=== PATIENT | female | born 1935 | race Caucasian/White ===

== ENCOUNTER 2016-05-14 13:00 | Emergency (ER) | payer OTHER ==
[~2016-05-14 13:00] MED LIST: ALPR0.25 PO; ASPI81TA21 PO; BELL1TAB PO; CALCTAB5 PO; CLOP1TAB54 PO; CRDCD/180 PO; DEXT30TA7 PO; ESCI1TAB10 PO; FLUO0.0543 TOP; FLUT0.15 NAE; FRS/40 PO; GLC/500 PO; INSHI7030 SC; IPRA1AER2 INH; ISOS60TA2 PO; LEVO125T72 PO; MULT-506 PO; NITR0.4S2 UT; OXGN; OXYC-106 PO; OXYC30TA35 PO; POTA-74 PO; SENN-61 PO; XNX25 PO; ZNT/150 PO
[2016-05-14 13:06] VITALS: TEMP 37.1
[2016-05-14 13:41] VITALS: O2SAT 96
--- NOTE | 2016-05-14 13:42 | DIAGNOSTIC IMAGING REPORT ---
RIGHT ANKLE MIN 3 VIEWS ROUTINE CLINICAL HISTORY: Right ankle pain. COMPARISON: None. DISCUSSION: The bones are osteopenic. No acute fractures are visualized. There are calcifications in the region of the plantar fascia, as well as in the region of the distal Achilles. IMPRESSION: Osteopenia. No fractures or dislocations identified. Electronically signed by: Sahil Gaspar M.D. 05/14/2016 1:41 PM Dictated Date/Time: 05/14/2016 1:40 PM
--- NOTE | 2016-05-14 13:43 | DIAGNOSTIC IMAGING REPORT ---
CHEST ONE VIEW PORTABLE CLINICAL HISTORY: Weakness COMPARISON STUDY: December 19, 2015 FINDINGS: There are postsurgical changes of a midline sternotomy. The heart is mildly enlarged. There is no failure. There is no focal pulmonary consolidation. There are no significant pleural effusions. There is an old proximal left humeral fracture. Degenerative changes are present within the left shoulder.[ IMPRESSION: No active disease in the chest. Electronically signed by: Sahil Gaspar M.D. 05/14/2016 1:42 PM Dictated Date/Time: 05/14/2016 1:41 PM
--- NOTE | 2016-05-14 14:19 | DIAGNOSTIC IMAGING REPORT ---
CT HEAD WITHOUT CONTRAST (CT) CLINICAL HISTORY: Weakness COMPARISON STUDY: 06/24/2014 TECHNIQUE: Axial CT of the brain is performed from the vertex to the skull base. IV contrast was not administered for this examination. CT DOSE: 537.48 mGy.cm FINDINGS: No intra or extra-axial mass lesions are visualized. There is no CT evidence of acute cortical infarction. There is no evidence of midline shift. There is no acute hemorrhage. No calvarial fractures are visualized. There are minor white matter hypodensities likely on a small vessel basis. There is no evidence of pathologic ventricular dilatation. There is no evidence of acute sinusitis IMPRESSION: No acute intracranial findings Electronically signed by: Sahil Gaspar M.D. 05/14/2016 2:18 PM Dictated Date/Time: 05/14/2016 2:17 PM
[2016-05-14 14:58] LABS: COMPLETE YES; EOS % 0.5 %; HEMATOCRIT 35.7 % (37-47); IG% 0.2 %; LYMPH % 19.7 %; LYMPH ABS # 1.68 K/uL (1.2-3.4); MEAN CORPUSCULAR HEMOGLOBIN 31.5 pg (25-34); MEAN CORPUSCULAR HGB CONC 32.8 g/dl (32-36); MEAN PLATELET VOLUME 10.3 fL (7.4-10.4); MONO % 6.2 %; NEUT % 73.4 %; PLATELET COUNT 206 K/uL (130-400); RED BLOOD COUNT 3.72 M/uL (4.2-5.4); WHITE BLOOD COUNT 8.53 K/uL (4.8-10.8)
[2016-05-14 15:07] LABS: ALT/SGPT 15 U/L (12-78); AST/SGOT 9 U/L (15-37); BLOOD UREA NITROGEN 24 mg/dl (7-18); BUN/CREATININE RATIO 25.7 (10-20); CALCIUM 9.3 mg/dl (8.5-10.1); CARBON DIOXIDE 27 mmol/L (21-32); CHLORIDE 101 mmol/L (98-107); CREATININE 0.94 mg/dl (0.60-1.20); GLUCOSE 325 mg/dl (70-99); POTASSIUM 4.3 mmol/L (3.5-5.1); SODIUM 138 mmol/L (136-145)
[2016-05-14] MEDS ORDERED: FURO-85 PO (15:08)
[2016-05-14] MEDS ORDERED: OXYC40TA34 PO (15:08)
[2016-05-14] MEDS ORDERED: ISOS60TA25 PO (15:08)
[2016-05-14] MEDS ORDERED: LDXO60 TP (15:08)
[2016-05-14] MEDS ORDERED: BELL1TAB PO (15:08)
[2016-05-14] MEDS ORDERED: NVLGI7030 SC (15:08)
[2016-05-14] MEDS ORDERED: SENN-65 PO (15:08)
[2016-05-14] MEDS ORDERED: INSU70IN2 SC (15:08)
[2016-05-14] MEDS ORDERED: DOCU-94 PO (15:08)
[2016-05-14] MEDS ORDERED: CALC-393 PO (15:08)
[2016-05-14] MEDS ORDERED: VENL37.593 PO (15:08)
[2016-05-14] MEDS ORDERED: NTRGSL/4 UT (15:08)
[2016-05-14] MEDS ORDERED: NovoLIN-R INSULIN PER UNIT CHARGE SC STA (15:09)
[2016-05-14 15:11] LABS: ALKALINE PHOSPHATASE 70 U/L (45-117)
--- NOTE | 2016-05-14 15:12 | DIAGNOSTIC IMAGING REPORT ---
RIGHT FOOT MIN 3 VIEWS ROUTINE CLINICAL HISTORY: Right foot pain. COMPARISON: None DISCUSSION: The bones are osteopenic. There are moderately advanced osteoarthritic changes at the level the first metatarsal phalangeal joint. There are soft tissue calcifications in the region of the distal Achilles and plantar fascia. There is an intra-articular fracture involving the base the first metatarsal. IMPRESSION: Osteopenia. Intra-articular fracture involving the base the first metatarsal. Electronically signed by: Sahil Gaspar M.D. 05/14/2016 3:11 PM Dictated Date/Time: 05/14/2016 3:08 PM
[2016-05-14 15:19] LABS: BETA-HYDROXYBUTYRATE 13.48 mg/dL (0.2-2.81)
--- NOTE | 2016-05-14 15:45 | EMERGENCY ROOM VISIT NOTE ---
History Report prepared by Baileyibfrederic: Mark Cary Under the Supervision of: Dr. Edward Clark D.O. First contact with patient: 13:04 Chief Complaint: ANKLE PAIN Stated Complaint: ankle pain History of Present Illness The patient is an 80 year old female who presents to the Emergency Room with complaints of an acute fall that occurred last night. The patient was getting ready for bed last night when the fall occurred. She was not using her walker at the time of the fall, and she had a glass of water in her hand. The patient believes that she hit the back of her head when she fell. She denies loss of consciousness or head pain. Her cannot remember what happened to her either. The patient states that her helped her get up after the fall. The patient now complains of right ankle pain. She fractured the left ankle last year after a fall. The patient is on Coumadin. The patient lives with her , who called an ambulance for her today because she was complaining of ankle pain. Patient has no other complaints and is able to state that she did not pass out. Patient denies headache, change in vision, fevers, back pain, chest pain, shortness of breath, nausea, vomiting, diarrhea, pain with urination , and melena. Source of History: patient Onset: last night Position: other (global) Quality: other (fall) Timing: other (acute) Associated Symptoms: No LOC, No SOB, No back pain, No chest pain, No diarrhea, No fevers, No headache, No melena, No nausea, No urinary symptoms, No vomiting Review of Systems See HPI for pertinent positives & negatives. A total of 10 systems reviewed and were otherwise negative. Past Medical & Surgical Medical Problems: (1) Asthma (2) Closed fracture of humerus (3) Coronary artery disease (4) Diabetes mellitus type 2 (5) Diabetic neuropathy (6) Diverticular disease of colon (7) Dizziness (8) Hypertension (9) Hypothyroidism (10) Osteoporosis Surgical Problems: (1) s p appendectomy (2) s p CABG (3) s p cataract surgery (4) s p colonoscopy (5) s p hysterectomy (6) s p PCI MONICA (7) s p PCI LM LCX MONICA (8) s p PCI PDA SVG MONICA Family History Patient reports no known family medical history. Social History Smoking Status: Never Smoker Alcohol Use: none Marital Status: Housing Status: lives with family Occupation Status: unemployed Current/Historical Medications Scheduled Alprazolam (Xanax), 0.25 MG PO UD Alprazolam (Alprazolam), 0.5 MG PO HS Aspirin Enteric Coated (Ecotrin Or Generic), 81 MG PO QPM Calcium Carbonate (Calcium), 600 MG PO BID Clopidogrel Bisulfate (Plavix), 75 MG PO DAILY Diltiazem Hcl Coated Beads (Cardizem Cd), 180 MG PO QAM Escitalopram Oxalate (Lexapro), 20 MG PO DAILY Fluocinonide (Lidex 0.05% Oint), 1 APPLN TP BID Fluticasone Propionate (Nasal) (Flonase Allergy Relief), 2 SPRAYS HENRY DAILY Furosemide (Lasix), 10 MG PO BID Insulin Human Isophan/Regular (Humulin 70/30), 20 UNITS SC QAM Insulin Isophan/Regular (Novolin 70/30), 10 UNITS SC QPM Ipratropium-Albuterol (Combivent Respimat), 1 PUFFS INH QID Isosorbide Mononitrate (Imdur Ext Rel), 120 MG PO QAM Isosorbide Mononitrate Ext Rel (Imdur Ext Rel), 30 MG PO UD Levothyroxine Sodium (Synthroid), 125 MCG PO DAILY Metformin Hcl (Glucophage), 1,000 MG PO QAM Metformin Hcl (Glucophage), 750 MG PO QPM Nitroglycerin (Nitrostat), 0.4 MG UT PRN Oxycodone Hcl (Oxycontin), 40 MG PO TID Oxycodone/Acetaminophen 10MG/325MG (Percocet 10MG/325MG), 1 TAB PO Q6 Oxygen (Oxygen), 3 LITER NA CONTINOUS Potassium Chloride (Potassium Chloride Er), 20 MEQ PO QAM Potassium Chloride (Potassium Chloride Er), 10 MEQ PO QPM Ranitidine Hcl (Zantac), 150 MG PO BID Senna/Docusate Sod (Senokot S), 1 TAB PO DAILY Venlafaxine Hcl (Venlafaxine Extended Rel), 37.5 MG PO DAILY Scheduled PRN Belladonna Alk/Phenobarbital (), 1 TAB PO TID PRN for GI Upset Belladonna Alk/Phenobarbital (), 1 TAB PO TID PRN for MD ORDER Dextromethorphan-Guaifenesin (Mucinex Dm), 1 TAB PO BID PRN for CONGESTION Docusate Sodium (Colace), 1 CAP PO BID PRN for Constipation Insulin Aspart 70/30 (Novolog Mix 70/30), 0 SC UD PRN for HYPERGLYCEMIA Allergies Coded Allergies: Cefdinir (Verified Allergy, Unknown, EDDEMA FACE,LIPS,TONGUE, 05/14/16) Meperidine (Verified Allergy, Unknown, UNKNOWN, 10/01/14) Pioglitazone (Verified Allergy, Unknown, EDEMA, 05/14/16) Rosiglitazone (Verified Allergy, Unknown, EDEMA, 05/14/16) Sodium Benzoate (Verified Allergy, Unknown, EDDEMA FACE,LIPS,TONGUE, ) Beta Adrenergic Blockers (Verified Adverse Reaction, Unknown, UNKNOWN, ) Lorazepam (Verified Adverse Reaction, Unknown, UNKNOWN, 10/01/14) Physical Exam Vital Signs Date Time Temp Pulse Resp B/P Pulse Ox O2 Delivery O2 Flow Rate FiO2 05/14/16 14:26 78 18 117/78 97 05/14/16 13:41 96 Nasal Cannula 2.0 05/14/16 13:40 90 Room Air 05/14/16 13:40 77 130/68 76 124/69 05/14/16 13:39 76 05/14/16 13:06 37.1 78 20 147/81 94 Room Air Physical Exam GENERAL: Sitting up in bed, alert, well appearing, well nourished, no distress, non-toxic HEAD: normal cephalic, atraumatic EYE EXAM: normal conjunctiva, PERRL and EOM's grossly intact OROPHARYNX: no exudate, no erythema, lips, buccal mucosa, and tongue normal and mucous membranes are moist EARS: TMs clear b/l NECK: supple, no nuchal rigidity, no adenopathy, non-tender CHEST: stable to compression anteriorly and posteriorly LUNGS: clear to auscultation. Normal chest wall mechanics HEART: Systolic ejection murmur, S1 normal and S2 normal ABDOMEN: abdomen soft, non-tender, normo-active bowel sounds, no masses, no rebound or guarding. PELVIS: stable to compression anteriorly and posteriorly BACK: Back is symmetrical on inspection and there is no deformity, no midline tenderness, no CVA tenderness. UPPER EXTREMITIES: full active and passive range of motion of all joints without tenderness to palpation LOWER EXTREMITIES: Right ankle with mild bruising at base of MTPs, minimal tenderness. NEURO EXAM: Awake, oriented to person place and time. Medical Decision & Procedures ER Provider Diagnostic Interpretation: Xray results per the radiologist and my interpretation. Other results have been interpreted by the radiologist and reviewed by me. RIGHT ANKLE MIN 3 VIEWS ROUTINE CLINICAL HISTORY: Right ankle pain. COMPARISON: None. DISCUSSION: The bones are osteopenic. No acute fractures are visualized. There are calcifications in the region of the plantar fascia, as well as in the region of the distal Achilles. IMPRESSION: Osteopenia. No fractures or dislocations identified. Electronically signed by: Sahil Gaspar M.D. 05/14/2016 1:41 PM Dictated Date/Time: 05/14/2016 1:40 PM CHEST ONE VIEW PORTABLE CLINICAL HISTORY: Weakness COMPARISON STUDY: December 19, 2015 FINDINGS: There are postsurgical changes of a midline sternotomy. The heart is mildly enlarged. There is no failure. There is no focal pulmonary consolidation. There are no significant pleural effusions. There is an old proximal left humeral fracture. Degenerative changes are present within the left shoulder.[ IMPRESSION: No active disease in the chest. Electronically signed by: Sahil Gaspar M.D. 05/14/2016 1:42 PM Dictated Date/Time: 05/14/2016 1:[address] HEAD WITHOUT CONTRAST (CT) CLINICAL HISTORY: Weakness COMPARISON STUDY: 06/24/2014 TECHNIQUE: Axial CT of the brain is performed from the vertex to the skull base. IV contrast was not administered for this examination. CT DOSE: 537.48 mGy.cm FINDINGS: No intra or extra-axial mass lesions are visualized. There is no CT evidence of acute cortical infarction. There is no evidence of midline shift. There is no acute hemorrhage. No calvarial fractures are visualized. There are minor white matter hypodensities likely on a small vessel basis. There is no evidence of pathologic ventricular dilatation. There is no evidence of acute sinusitis IMPRESSION: No acute intracranial findings Electronically signed by: Sahil Gaspar M.D. 05/14/2016 2:18 PM Dictated Date/Time: 05/14/2016 2:17 PM Laboratory Results 05/14/16 13:45 Red Blood Count 3.72, Mean Corpuscular Volume 96.0, Mean Corpuscular Hemoglobin 31.5, Mean Corpuscular Hemoglobin Concent 32.8, Mean Platelet Volume 10.3, Neutrophils (%) (Auto) 73.4, Lymphocytes (%) (Auto) 19.7, Monocytes (%) (Auto) 6.2, Eosinophils (%) (Auto) 0.5, Basophils (%) (Auto) 0.0, Neutrophils # (Auto) 6.26, Lymphocytes # (Auto) 1.68, Monocytes # (Auto) 0.53, Eosinophils # (Auto) 0.04, Basophils # (Auto) 0.00 05/14/16 13:45 Test 05/14/16 13:45 05/14/16 14:53 White Blood Count 8.53 K/uL (4.8-10.8) Red Blood Count 3.72 M/uL (4.2-5.4) Hemoglobin 11.7 g/dL (12.0-16.0) Hematocrit 35.7 % (37-47) Mean Corpuscular Volume 96.0 fL (80-100) Mean Corpuscular Hemoglobin 31.5 pg (25-34) Mean Corpuscular Hemoglobin Concent 32.8 g/dl (32-36) Platelet Count 206 K/uL (130-400) Mean Platelet Volume 10.3 fL (7.4-10.4) Neutrophils (%) (Auto) 73.4 % Lymphocytes (%) (Auto) 19.7 % Monocytes (%) (Auto) 6.2 % Eosinophils (%) (Auto) 0.5 % Basophils (%) (Auto) 0.0 % Neutrophils # (Auto) 6.26 K/uL (1.4-6.5) Lymphocytes # (Auto) 1.68 K/uL (1.2-3.4) Monocytes # (Auto) 0.53 K/uL (0.11-0.59) Eosinophils # (Auto) 0.04 K/uL (0-0.5) Basophils # (Auto) 0.00 K/uL (0-0.2) RDW Standard Deviation 47.4 fL (36.4-46.3) RDW Coefficient of Variation 13.6 % (11.5-14.5) Immature Granulocyte % (Auto) 0.2 % Immature Granulocyte # (Auto) 0.02 K/uL (0.00-0.02) Anion Gap 10.0 mmol/L (3-11) Estimated GFR () 65.5 Estimated GFR (Non- 56.5 BUN/Creatinine Ratio 25.7 (10-20) Calcium Level 9.3 mg/dl (8.5-10.1) Total Bilirubin 0.4 mg/dl (0.2-1) Direct Bilirubin < 0.1 mg/dl (0-0.2) Aspartate Amino Transf (AST/SGOT) 9 U/L (15-37) Alanine Aminotransferase (ALT/SGPT) 15 U/L (12-78) Alkaline Phosphatase 70 U/L (45-117) Troponin I < 0.015 ng/ml (0-0.045) Total Protein 6.9 gm/dl (6.4-8.2) Albumin 3.5 gm/dl (3.4-5.0) Beta-Hydroxybutyric Acid 13.48 mg/dL (0.2-2.81) Bedside Glucose 294 mg/dl (70-90) Laboratory results per my review. Medications Administered Medications (Trade) Dose Ordered Sig/Emanuel Route Start Time Stop Time Status Last Admin Dose Admin Insulin Human Regular (novoLIN-R U-100 PER UNIT) 3 units NOW STAT SC 05/14/16 15:09 05/14/16 15:10 DC 05/14/16 15:21 3 UNITS ECG Indication: other (fall) Rate (beats per minute): 79 Rhythm: sinus rhythm Findings: PVC, Q waves (Septal), other (normal axis) Change: no significant change (2015) ED Course ED COURSE: Vital signs were reviewed and were normal. The patients medical record was reviewed The above diagnostic studies were performed and reviewed. ED treatments and interventions as stated above. 1308: The patient was evaluated in room C7. A complete history and physical examination was performed. 1530: Updated the patient and her family. 1540: Upon reevaluation, the patient is stable. I discussed my findings with the patient and she understands and agrees with the treatment plan. Based on the patients age, coexisting illnesses, exam and lab findings the decision to treat as an outpatient was made. The patient remained stable while under my care. The patient appeared well at the time of discharge. Medical Decision Differential diagnoses include major intracranial, cervical, spinal, thoracic, abdominal, pelvic and neurologic injury. Fracture, contusion, sprain, strain, laceration, abrasions included as well. Patient is an 80-year-old female who presents the ER status post what appears to be mechanical fall. She is walking into the bedroom and notes that she fell backwards. She does remember falling. I do not believe that there was any loss consciousness. She is on a blood thinners consequently CT of her head was performed. She is no other complaints with the exception of right foot pain. X -ray show fracture of her first metatarsal. I discussed this with Dr. Tin Conteh who agrees with walking boot and following up as an outpatient. With her elevated blood sugar she was given a dose of insulin. She is instructed not to take her glyburide tonight. She will use her walker and follow-up with orthopedics within the week. EKG was unremarkable. Troponin was unremarkable. CBC along with BMP was unremarkable as well. I do not believe that this was a syncopal event based on her history. Vitals remained stable. Friends and family at bedside were updated. Discussed with Pt concerning signs and symptoms to watch out for. Pt was instructed to follow up with their PCP and discussed with the patient their option to return to the ED at anytime for persistent or worsening symptoms. The appropriate anticipatory guidance and out-patient management, including indications for return to the emergency department, were explained at length to the patient and understood. Consults Time Called: 1520 Consulting Physician: Tin Crespo Follow up within a week with ce pinto. Impression Primary Impression: Fracture of first metatarsal bone Additional Impressions: Fall Hyperglycemia Scribe Attestation The scribe's documentation has been prepared under my direction and personally reviewed by me in its entirety. I confirm that the note above accurately reflects all work, treatment, procedures, and medical decision making performed by me. Departure Information Referrals LeeGisella (PCP) Ben Wharton, DO Forms HOME CARE DOCUMENTATION FORM, IMPORTANT VISIT INFORMATION Patient Instructions My [facility] Additional Instructions Please follow up with your primary care doctor with in the next 24 hours. Any worsening of your symptoms, please return to the ED immediately. This includes any worsening pain, passing out, worsening swelling of her foot, fevers greater than 100.4, recurrent falls, or any other concerning signs or symptoms from your standpoint. Do not take your glyburide tonight. Please try not to bear weight on the anterior portion of her foot. It is okay to put weight on her heel. Please continue to usual walker. Follow-up with orthopedics as listed below within the week. Problem Qualifiers Primary Impression: Fracture of first metatarsal bone Encounter type: initial encounter Fracture type: closed Fracture alignment : nondisplaced Laterality: right Qualified Codes: S92.314A - Nondisplaced fracture of first metatarsal bone, right foot, initial encounter for closed fracture Additional Impressions: Fall Encounter type: initial encounter Qualified Codes: W19.XXXA - Unspecified fall, initial encounter
--- NOTE | 2016-05-14 19:07 | EMERGENCY ROOM VISIT NOTE ---
ED Visit Note First contact with patient: 19:20 The patient was seen primarily by Dr. Edward Clark. She was pending discharge but then new information was provided and she was not doing well enough to ambulate safely in her home. Case management with the patient. They discussed the case with her family. It was felt [facility] would be a reasonable option. I did meet with the patient. She was complaining of low back pain. X- ray imaging was not performed earlier. She notes a long history of back pain. She feels this may be from lying on the stretcher since prolonged rest seems to aggravate her back. She was given 1 Percocet as requested. X-ray imaging was performed. Running changes noted. No acute fracture. The patient was reassessed and was doing well. [facility] accepted the patient. Family was in agreement. The patient was transferred for further management.
[2016-05-14] MEDS ORDERED: OXYCODONE/ACETAMINOPHEN 5-325 TAB PO ONE (19:15)
--- NOTE | 2016-05-14 19:40 | DIAGNOSTIC IMAGING REPORT ---
L-SPINE MIN 4 VIEWS ROUTINE CLINICAL HISTORY: Low back pain. Trauma. COMPARISON STUDY: No previous studies for comparison. FINDINGS: There are moderate multilevel degenerative changes. There is a grade 1 spondylolisthesis of L4 on L5. There is a grade 2 spondylolisthesis of L5 on S1. No acute fractures are visualized. IMPRESSION: 1. Degenerative change with spondylolisthesis of L4 on L5 and L5 on S1 2. No acute fractures Electronically signed by: Sahil Gaspar M.D. 05/14/2016 7:39 PM Dictated Date/Time: 05/14/2016 7:38 PM
[2016-05-14 21:19] VITALS: BP 139/59; PULSE 70; O2SAT 96
== END 2016-05-14 21:52 ==
LOC: EDBD 13:00 → C.EDC 13:01
DX: S92.314A Nondisplaced fracture of first metatarsal bone, right foot, initial encounter for closed fracture (principal); W19.XXXA Unspecified fall, initial encounter; J45.909 Unspecified asthma, uncomplicated; I25.10 Atherosclerotic heart disease of native coronary artery without angina pectoris; E11.65 Type 2 diabetes mellitus with hyperglycemia; E08.21 Diabetes mellitus due to underlying condition with diabetic nephropathy; I10 Essential (primary) hypertension; E03.9 Hypothyroidism, unspecified; M81.0 Age-related osteoporosis without current pathological fracture; Z98.49 Cataract extraction status, unspecified eye; Z95.1 Presence of aortocoronary bypass graft; Z90.710 Acquired absence of both cervix and uterus; Z95.5 Presence of coronary angioplasty implant and graft; Z79.01 Long term (current) use of anticoagulants; Z79.4 Long term (current) use of insulin; Z79.02 Long term (current) use of antithrombotics/antiplatelets

== ENCOUNTER → 2016-10-04 | Outpatient (CLI) | payer OTHER ==
[~2016-10-04] MED LIST changes: -BELL1TAB PO; +CALC-354 PO; +CALC-393 PO; -CALCTAB5 PO; +DOCU-94 PO; -FLUO0.0543 TOP; -FRS/40 PO; +FURO-85 PO; +INSU70IN2 SC; +ISOS60TA25 PO; +LDXO60 TP; -MULT-506 PO; -NITR0.4S2 UT; +NTRGSL/4 UT; +NVLGI7030 SC; +NYST100010 TOP; -OXYC30TA35 PO; +OXYC40TA34 PO; +PHEN-778 PO; +SENN-65 PO; +VENL37.593 PO
[2016-10-04 14:06] LABS: ESTIMATED AVERAGE GLUCOSE 200 mg/dl; HA1C FLAG Normal (Normal)
== END | disposition home or self-care (01) ==
LOC: C.LABOAKS 15:22
PROVIDERS: ATTEND Internal Medicine
DX: E11.9 Type 2 diabetes mellitus without complications (principal)

== ENCOUNTER 2016-10-26 15:33 | Emergency (ER) | payer OTHER ==
[~2016-10-26] VITALS: Ht 165.1 cm; Wt 92.3 kg
[~2016-10-26 15:33] MED LIST changes: +BELL1TAB PO; -CALC-354 PO; -NYST100010 TOP; -PHEN-778 PO; -SENN-61 PO
[2016-10-26 15:41] VITALS: TEMP 37; Ht 165.1 cm; Wt 92.3 kg
[2016-10-26 16:15] LABS: URINE APPEARANCE CLEAR (CLEAR); URINE BILIRUBIN NEG (NEG); URINE COLOR YELLOW; URINE NITRITE NEG (NEG); URINE SPECIFIC GRAVITY 1.017 (1.000-1.030); UROBILINOGEN NEG (NEG); ZZUR CULT IF INDIC CLEAN CATCH NO
[2016-10-26 16:19] LABS: MANUAL MICROSCOPIC REQUIRED? NO; REVIEW REQ? NO
[2016-10-26] MEDS ORDERED: SENN-61 PO (16:26)
[2016-10-26] MEDS ORDERED: CALC-354 PO (16:26)
[2016-10-26] MEDS ORDERED: NYST100010 TOP (16:26)
[2016-10-26] MEDS ORDERED: ONDANSETRON INJ 2 MG/ML 2 ML VIAL IV STA ×2 (16:49→19:23)
[2016-10-26] MEDS ORDERED: SODIUM CHLORIDE 0.9% 1000ML 1,000 ML IV STA (16:49)
[2016-10-26 17:02] LABS: BASO % 0.1 %; BASO ABS # 0.01 K/uL (0-0.2); COMPLETE YES; EOS % 0.6 %; HEMATOCRIT 35.6 % (37-47); IG% 0.2 %; LYMPH % 23.9 %; LYMPH ABS # 1.97 K/uL (1.2-3.4); MEAN CELL VOLUME 97.3 fL (80-100); MEAN CORPUSCULAR HEMOGLOBIN 31.1 pg (25-34); MEAN PLATELET VOLUME 9.8 fL (7.4-10.4); MONO % 5.1 %; NEUT % 70.1 %; PLATELET COUNT 219 K/uL (130-400); RED BLOOD COUNT 3.66 M/uL (4.2-5.4); WHITE BLOOD COUNT 8.24 K/uL (4.8-10.8)
[2016-10-26 17:21] LABS: BUN/CREATININE RATIO 20.5 (10-20); CALCIUM 9.3 mg/dl (8.5-10.1); CREATININE 0.87 mg/dl (0.60-1.20); POTASSIUM 3.8 mmol/L (3.5-5.1)
[2016-10-26 17:24] LABS: ALB/GLOB RATIO 0.9 (0.9-2)
[2016-10-26] MEDS ORDERED: OPTIRAY 320 IV PRN (17:45)
--- NOTE | 2016-10-26 18:35 | DIAGNOSTIC IMAGING REPORT ---
CT OF THE ABDOMEN AND PELVIS WITH CONTRAST CLINICAL HISTORY: Lower abdominal pain. Syncope. COMPARISON STUDY: CT of the abdomen and pelvis October 02, 2014. TECHNIQUE: Following IV administration of 94 mL of Optiray-320, axial images of the abdomen and pelvis were obtained from the lung bases to the proximal femurs. Images were reviewed in the axial, sagittal, and coronal planes. IV contrast was administered without complication. CT DOSE: 987.27 mGy.cm FINDINGS: No pneumatosis, free air or portal venous gas is present. The liver, spleen and pancreas are unremarkable. A 1.8 cm right adrenal gland nodule is unchanged since CT of October 02, 2014. This is benign given stability. Left adrenal nodularity is similar to prior exam. There is no hydronephrosis. There is no peripancreatic or pericholecystic infiltration. There is left colon diverticulosis without evidence for acute diverticulitis. There is no evidence for a bowel obstruction. The appendix is not identified but there is no right lower quadrant infiltration. There is a fat-containing umbilical hernia. Laxity of the anterior abdominal wall is noted. There is extensive atherosclerotic plaque of the abdominal aorta. There is no aneurysmal dilatation. The uterus is surgically absent. A mixed solid and cystic right adnexal mass is again noted. The cystic component measures 5.6 x 3.9 cm. The solid component measures 3.4 cm. This is similar to exam of October 02, 2014. This lesion remains indeterminate. No suspicious skeletal lesions are present. There are multilevel degenerative changes within the lumbar spine. IMPRESSION: 1. No acute process within the abdomen or pelvis. 2. Colonic diverticulosis without evidence for acute diverticulitis. 3. 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 This is unchanged since CT of October 02, 2014 but remains pathologically indeterminate. Gynecologic consultation is recommended. Electronically signed by: Emmanuel Luz M.D. 10/26/2016 6:34 PM Dictated Date/Time: 10/26/2016 6:19 PM
[2016-10-26] MEDS ORDERED: MoRPHine SULFATE 4 MG/ML 1 ML CARP\\VIAL IV STA (19:23)
[2016-10-26] MEDS ORDERED: OXYCODONE HCL IR 5 MG TAB (IMMEDIATE RELEASE) PO STA (19:42)
[2016-10-26] MEDS ORDERED: ALPRAZOLAM 0.5 MG TAB PO STA (20:11)
--- NOTE | 2016-10-26 20:21 | DIAGNOSTIC IMAGING REPORT ---
CHEST ONE VIEW PORTABLE CLINICAL HISTORY: Abdominal pain and syncope. COMPARISON STUDY: Chest radiograph May 14, 2016. FINDINGS: Patient is rotated. There is no pneumothorax or pleural effusion. Mild cardiomegaly is unchanged. There are median sternotomy wires. There is no evidence of pulmonary edema. Mediastinal surgical clips are noted. Patient is rotated. IMPRESSION: No acute cardiopulmonary findings. No change in appearance of the chest. Electronically signed by: Emmanuel Luz M.D. 10/26/2016 8:20 PM Dictated Date/Time: 10/26/2016 8:19 PM
[2016-10-26 21:01] VITALS: BP 140/41
[2016-10-26 21:08] VITALS: PULSE 68
[2016-10-26 21:17] VITALS: O2SAT 93
--- NOTE | 2016-10-26 22:56 | EMERGENCY ROOM VISIT NOTE ---
History Report prepared by Mally: Franchesca Conklin Under the Supervision of: Dr. Edward Clark D.O. First contact with patient: 16:34 Chief Complaint: ABDOMINAL PAIN Stated Complaint: AB PAIN, SYNCOPE Nursing Triage Summary: Pt having bilateral flank pain at this time. Pt states she just feels "bloated. " She states having a large BM yesterday and a "normal" BM this AM. [facility] staff reported the patient possibly having a syncopal episiode earlier today. History of Present Illness The patient is an 81 year old female who presents to the Emergency Room with complaints of intermittent abdominal pain that began several weeks ago. She currently rates her discomfort as a 6/10 in severity. The patient states that over the past several weeks she has been experiencing diffuse abdominal pain and bloating. She states that today she felt nauseous. The patient states that she is typically constipated due to her pain medications, and denies taking any new medications. She reports that she had a normal bowel movement yesterday and notes that she had one today. The patient states that she has a history of a partial hysterectomy and appendectomy. She states that over the past four years she has intermittently experienced chest pain that she treats with nitroglycerin. The patient states that she has a history of bypass surgery four years ago. She denies any chest pain today or taking nitroglycerin today. Per records, the patient had a three minute loss of consciousness prior to ALS arrival. Records report that the patient is on two liters of supplemental nasal cannula oxygen and is on Plavix. Pt denies headache, change in vision, fevers, chest pain, shortness of breath, vomiting, diarrhea, pain with urination, and melena. Source of History: patient, other (records) Onset: several weeks ago Position: abdomen Symptom Intensity: 6/10 Timing: intermittent Associated Symptoms: + LOC, + nausea Note: Associated Symptoms: abdominal bloating, constipation Review of Systems See HPI for pertinent positives & negatives. A total of 10 systems reviewed and were otherwise negative. Past Medical & Surgical Medical Problems: (1) Asthma (2) Closed fracture of humerus (3) Coronary artery disease (4) Diabetes mellitus type 2 (5) Diabetic neuropathy (6) Diverticular disease of colon (7) Dizziness (8) Hypertension (9) Hypothyroidism (10) Osteoporosis Surgical Problems: (1) s p appendectomy (2) s p CABG (3) s p cataract surgery (4) s p colonoscopy (5) s p hysterectomy (6) s p PCI MONICA (7) s p PCI LM LCX MONICA (8) s p PCI PDA SVG MONICA Family History Patient reports no known family medical history. Social History Smoking Status: Never Smoker Alcohol Use: none Marital Status: Housing Status: lives with family Occupation Status: unemployed Current/Historical Medications Scheduled Alprazolam (Xanax), 0.25 MG PO BID Aspirin Enteric Coated (Ecotrin Or Generic), 81 MG PO QPM Calcium Carbonate-Cholecalcife (Caltrate 600+D), 1 TAB PO BID Clopidogrel Bisulfate (Plavix), 75 MG PO DAILY Diltiazem Hcl Coated Beads (Cardizem Cd), 180 MG PO QAM Docusate Sodium (Colace), 100 MG PO BID Escitalopram Oxalate (Lexapro), 20 MG PO DAILY Fluocinonide (Lidex 0.05% Oint), 1 APPLN TP BID Fluticasone Propionate (Nasal) (Flonase Allergy Relief), 2 SPRAYS HENRY DAILY Furosemide (Lasix), 10 MG PO BID Home O2 Therapy (Oxygen), 3 LITER NA CONTINOUS Insulin Human Isophan/Regular (Humulin 70/30), 20 UNITS SC QAM Insulin Isophan/Regular (Novolin 70/30), 10 UNITS SC QPM Ipratropium-Albuterol (Combivent Respimat), 1 PUFFS INH QID Isosorbide Mononitrate (Imdur Ext Rel), 120 MG PO QAM Levothyroxine Sodium (Synthroid), 125 MCG PO DAILY Metformin Hcl (Glucophage), 1,000 MG PO BID Nitroglycerin (Nitrostat), 0.4 MG UT PRN Nystatin (Topical) (Nystop), 100,000 UNITS TOP TID Oxycodone Hcl (Oxycontin), 40 MG PO TID Oxycodone/Acetaminophen 10MG/325MG (Percocet 10MG/325MG), 1 TAB PO TID Potassium Chloride (Potassium Chloride Er), 20 MEQ PO QPM Ranitidine Hcl (Zantac), 150 MG PO BID Senna (Senokot), 1 TAB PO BID Venlafaxine Hcl (Venlafaxine Extended Rel), 37.5 MG PO DAILY Scheduled PRN Belladonna Alk/Phenobarbital (), 1 TAB PO TID PRN for MD ORDER Dextromethorphan-Guaifenesin (Mucinex Dm), 1 TAB PO BID PRN for CONGESTION Allergies Coded Allergies: Cefdinir (Verified Allergy, Unknown, EDDEMA FACE,LIPS,TONGUE, 10/26/16) Meperidine (Verified Allergy, Unknown, UNKNOWN, 10/26/16) Pioglitazone (Verified Allergy, Unknown, EDEMA, 10/26/16) Rosiglitazone (Verified Allergy, Unknown, EDEMA, 10/26/16) Sodium Benzoate (Verified Allergy, Unknown, EDDEMA FACE,LIPS,TONGUE, ) Beta Adrenergic Blockers (Verified Adverse Reaction, Unknown, UNKNOWN, 04/02) Lorazepam (Verified Adverse Reaction, Unknown, UNKNOWN, 10/26/16) Physical Exam Vital Signs Date Time Temp Pulse Resp B/P (MAP) Pulse Ox O2 Delivery O2 Flow Rate FiO2 10/26/16 21:17 93 10/26/16 21:08 68 23 10/26/16 21:01 140/41 10/26/16 20:53 70 18 92 10/26/16 20:38 70 14 93 10/26/16 20:32 164/80 10/26/16 20:23 70 20 94 10/26/16 20:18 72 23 95 10/26/16 20:03 75 25 97 10/26/16 20:02 145/78 10/26/16 19:55 175/63 10/26/16 19:48 73 18 92 10/26/16 19:33 74 14 94 10/26/16 19:18 74 19 97 10/26/16 19:03 74 19 95 10/26/16 18:48 78 15 97 10/26/16 18:44 82 18 181/75 96 Room Air 10/26/16 18:40 181/75 10/26/16 18:33 74 13 94 10/26/16 18:18 72 14 96 10/26/16 17:33 73 22 90 10/26/16 17:18 75 19 92 10/26/16 17:17 76 18 172/75 94 Room Air 10/26/16 17:16 172/75 10/26/16 17:03 71 17 92 7/12/17 16:48 71 10/26/16 16:48 72 24 10/26/16 15:41 37.0 76 18 187/ 93 Room Air 10/26/16 15:38 187/ Physical Exam GENERAL: Sitting up in bed, disheveled, no acute distress. EYE EXAM: normal conjunctiva, PERRL and EOM's intact OROPHARYNX: no exudate, no erythema, lips, buccal mucosa, and tongue normal and mucous membranes are moist NECK: supple, no nuchal rigidity, no adenopathy, non-tender LUNGS: Clear to auscultation. Normal chest wall mechanics HEART: no murmurs, S1 normal and S2 normal ABDOMEN: Obese, minimal diffuse tenderness. abdomen soft, normo-active bowel sounds, no masses, no rebound or guarding. BACK: Back is symmetrical on inspection and there is no deformity, no midline tenderness, no CVA tenderness. SKIN: no rashes and no bruising UPPER EXTREMITIES: upper extremities are grossly normal. LOWER EXTREMITIES: No pitting edema. NEURO EXAM: Normal sensorium, cranial nerves II-XII grossly intact, normal speech, no gross weakness of arms, no gross weakness of legs. No drift. Finger to nose intact. Gross sensation intact. Medical Decision & Procedures ER Provider Diagnostic Interpretation: Radiology results as stated below per my review and the radiologist's interpretation: CT OF THE ABDOMEN AND PELVIS WITH CONTRAST CLINICAL HISTORY: Lower abdominal pain. Syncope. COMPARISON STUDY: CT of the abdomen and pelvis October 02, 2014. TECHNIQUE: Following IV administration of 94 mL of Optiray-320, axial images of the abdomen and pelvis were obtained from the lung bases to the proximal femurs. Images were reviewed in the axial, sagittal, and coronal planes. IV contrast was administered without complication. CT DOSE: 987.27 mGy.cm FINDINGS: No pneumatosis, free air or portal venous gas is present. The liver, spleen and pancreas are unremarkable. A 1.8 cm right adrenal gland nodule is unchanged since CT of October 02, 2014. This is benign given stability. Left adrenal nodularity is similar to prior exam. There is no hydronephrosis. There is no peripancreatic or pericholecystic infiltration. There is left colon diverticulosis without evidence for acute diverticulitis. There is no evidence for a bowel obstruction. The appendix is not identified but there is no right lower quadrant infiltration. There is a fat-containing umbilical hernia. Laxity of the anterior abdominal wall is noted. There is extensive atherosclerotic plaque of the abdominal aorta. There is no aneurysmal dilatation. The uterus is surgically absent. A mixed solid and cystic right adnexal mass is again noted. The cystic component measures 5.6 x 3.9 cm. The solid component measures 3.4 cm. This is similar to exam of October 02, 2014. This lesion remains indeterminate. No suspicious skeletal lesions are present. There are multilevel degenerative changes within the lumbar spine. IMPRESSION: 1. No acute process within the abdomen or pelvis. 2. Colonic diverticulosis without evidence for acute diverticulitis. 3. 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 This is unchanged since CT of October 02, 2014 but remains pathologically indeterminate. Gynecologic consultation is recommended. Electronically signed by: Emmanuel Luz M.D. 10/26/2016 6:34 PM Dictated Date/Time: 10/26/2016 6:19 PM CHEST ONE VIEW PORTABLE CLINICAL HISTORY: Abdominal pain and syncope. COMPARISON STUDY: Chest radiograph May 14, 2016. FINDINGS: Patient is rotated. There is no pneumothorax or pleural effusion. Mild cardiomegaly is unchanged. There are median sternotomy wires. There is no evidence of pulmonary edema. Mediastinal surgical clips are noted. Patient is rotated. IMPRESSION: No acute cardiopulmonary findings. No change in appearance of the chest. Electronically signed by: Emmanuel Luz M.D. 10/26/2016 8:20 PM Dictated Date/Time: 10/26/2016 8:19 PM Laboratory Results 10/26/16 16:20 Red Blood Count 3.66, Mean Corpuscular Volume 97.3, Mean Corpuscular Hemoglobin 31.1, Mean Corpuscular Hemoglobin Concent 32.0, Mean Platelet Volume 9.8, Neutrophils (%) (Auto) 70.1, Lymphocytes (%) (Auto) 23.9, Monocytes (%) (Auto) 5.1, Eosinophils (%) (Auto) 0.6, Basophils (%) (Auto) 0.1, Neutrophils # (Auto) 5.77, Lymphocytes # (Auto) 1.97, Monocytes # (Auto) 0.42, Eosinophils # (Auto) 0.05, Basophils # (Auto) 0.01 10/26/16 15:49 Test 10/26/16 15:49 10/26/16 16:00 10/26/16 16:20 10/26/16 19:56 Anion Gap 8.0 mmol/L (3-11) Est Creatinine Clear Calc Drug Dose 55.0 ml/min Estimated GFR () 71.4 Estimated GFR (Non- 61.6 BUN/Creatinine Ratio 20.5 (10-20) Calcium Level 9.3 mg/dl (8.5-10.1) Total Bilirubin 0.3 mg/dl (0.2-1) Aspartate Amino Transf (AST/SGOT) 13 U/L (15-37) Alanine Aminotransferase (ALT/SGPT) 17 U/L (12-78) Alkaline Phosphatase 75 U/L (45-117) Total Protein 6.8 gm/dl (6.4-8.2) Albumin 3.2 gm/dl (3.4-5.0) Globulin 3.6 gm/dl (2.5-4.0) Albumin/Globulin Ratio 0.9 (0.9-2) Lipase 144 U/L (73-393) Urine Color YELLOW Urine Appearance CLEAR (CLEAR) Urine pH 8.0 (4.5-7.5) Urine Specific [place] 1.017 (1.000-1.030) Urine Protein NEG (NEG) Urine Glucose (UA) 3+ (NEG) Urine Ketones TRACE (NEG) Urine Occult Blood NEG (NEG) Urine Nitrite NEG (NEG) Urine Bilirubin NEG (NEG) Urine Urobilinogen NEG (NEG) Urine Leukocyte Esterase NEG (NEG) White Blood Count 8.24 K/uL (4.8-10.8) Red Blood Count 3.66 M/uL (4.2-5.4) Hemoglobin 11.4 g/dL (12.0-16.0) Hematocrit 35.6 % (37-47) Mean Corpuscular Volume 97.3 fL (80-100) Mean Corpuscular Hemoglobin 31.1 pg (25-34) Mean Corpuscular Hemoglobin Concent 32.0 g/dl (32-36) Platelet Count 219 K/uL (130-400) Mean Platelet Volume 9.8 fL (7.4-10.4) Neutrophils (%) (Auto) 70.1 % Lymphocytes (%) (Auto) 23.9 % Monocytes (%) (Auto) 5.1 % Eosinophils (%) (Auto) 0.6 % Basophils (%) (Auto) 0.1 % Neutrophils # (Auto) 5.77 K/uL (1.4-6.5) Lymphocytes # (Auto) 1.97 K/uL (1.2-3.4) Monocytes # (Auto) 0.42 K/uL (0.11-0.59) Eosinophils # (Auto) 0.05 K/uL (0-0.5) Basophils # (Auto) 0.01 K/uL (0-0.2) RDW Standard Deviation 48.2 fL (36.4-46.3) RDW Coefficient of Variation 13.6 % (11.5-14.5) Immature Granulocyte % (Auto) 0.2 % Immature Granulocyte # (Auto) 0.02 K/uL (0.00-0.02) Troponin I < 0.015 ng/ml (0-0.045) Laboratory results per my review. Medications Administered Medications (Trade) Dose Ordered Sig/Emanuel Route Start Time Stop Time Status Last Admin Dose Admin Sodium Chloride 1,000 ml @ 999 mls/hr Q1H1M STAT IV 10/26/16 16:49 10/26/16 17:49 DC 10/26/16 17:19 999 MLS/HR Ondansetron HCl (Zofran Inj) 4 mg NOW STAT IV 10/26/16 16:49 10/26/16 16:52 DC 10/26/16 17:19 4 MG Ondansetron HCl (Zofran Inj) 4 mg NOW STAT IV 10/26/16 19:23 10/26/16 19:24 DC 10/26/16 19:46 4 MG Oxycodone HCl (Roxicodone Immediate Rel Tab) 5 mg NOW STAT PO 10/26/16 19:42 10/26/16 19:43 DC 10/26/16 19:53 5 MG Alprazolam (Xanax Tab) 0.25 mg NOW STAT PO 10/26/16 20:11 10/26/16 20:12 DC 10/26/16 20:30 0.25 MG ECG Indication: abdominal pain Rate (beats per minute): 74 Rhythm: sinus rhythm Findings: no ectopy, other (normal axis) ED Course ED COURSE: Vital signs were reviewed and showed hypertensive The patients medical record was reviewed The above diagnostic studies were performed and reviewed. ED treatments and interventions as stated above. 7: The patient was evaluated in room C4. A complete history and physical examination was performed. 1648: Ordered Zofran Inj 4 mg IV, Sodium Chloride 1000 ml @ 999 mls/hr IV. 1758: I reevaluated the patient and she is feeling okay. 1922: Ordered Zofran Inj 4 mg IV, Morphine Sulfate 4 mg IV. 1924: I discussed the patient with Blaine from the [facility]. She states that it was difficult to wake the patient, but the patient never fully passed out. 1941: Ordered Oxycodone HCl 5 mg PO. 2004: I updated the patient's family at this time. 2010: Ordered Xanax Tab 0.25 mg PO. 2040: Upon reevaluation, the patient is feeling much better.I discussed my findings with the patient and she understands and agrees with the treatment plan. Based on the patients age, coexisting illnesses, exam and lab findings the decision to treat as an outpatient was made. The patient remained stable while under my care. The patient appeared well at the time of discharge. Medical Decision Differential diagnoses includes but is not limited to gastritis, peptic ulcer disease, GERD, gallbladder disease, pancreatitis, small bowel obstruction, acute coronary syndrome, pericarditis, ischemic bowel, irritable bowel disease, irritable bowel syndrome, appendicitis, diverticulitis, malignancy, hernia, urinary tract infection, torsion, perforation, trauma, infectious. Medication Reconciliation: I attest that I have personally reviewed the patient' s current medication list. Blood pressure screening: Patient was found to have an elevated blood pressure and was referred to their primary doctor for recheck and further treatment. Patient is in 81-year-old female who presents to the ER for abdominal pain associated with nausea. On exam patient has minimal tenderness. Labs are unremarkable including no significant leukocytosis. CT of abdomen and pelvis was benign with exception of a right ovarian mass which is unchanged. Patient family were updated regards to this. EKG was unremarkable. Chest x-ray was negative. Troponin was negative. Patient was updated regards to findings. She was feeling significantly better. There was report of syncope however after discussion with the who was in the room and the patient and accommodation with the nurse at the facility patient was simply difficult to arouse. Following all this patient family were updated at bedside. She is discharged follow-up with her PCP. Discussed with Pt concerning signs and symptoms to watch out for. Pt was instructed to follow up with their PCP and discussed with the patient their option to return to the ED at anytime for persistent or worsening symptoms. The appropriate anticipatory guidance and out- patient management, including indications for return to the emergency department , were explained at length to the patient and understood. Consults Time Called: 1922 Consulting Physician: Blaine from the [facility] Returned Call: 1924 I discussed the patient with Blaine from the [facility]. She states that it was difficult to wake the patient, but the patient never fully passed out. Impression Primary Impression: Abdominal pain, left upper quadrant Additional Impression: Ovarian mass Scribe Attestation The scribe's documentation has been prepared under my direction and personally reviewed by me in its entirety. I confirm that the note above accurately reflects all work, treatment, procedures, and medical decision making performed by me. Departure Information Dispostion Home / Self-Care Referrals Melba Lemos (PCP) Forms HOME CARE DOCUMENTATION FORM, IMPORTANT VISIT INFORMATION Patient Instructions Abdominal Pain - [facility], [facility], [facility] Additional Instructions Please follow up with your primary care doctor with in the next 24 hours. Any worsening of your symptoms, please return to the ED immediately. This includes fevers greater than 100.4, worsening abdominal pain, unable to eat or drink, passing out, chest pain, shortness breath or any other concerning signs or symptoms from your standpoint. Problem Qualifiers
== END 2016-10-26 21:19 | disposition home or self-care (01) ==
LOC: EDBD 15:33 → C.EDC 15:34
DX: R10.12 Left upper quadrant pain (principal); R19.09 Other intra-abdominal and pelvic swelling, mass and lump; J45.909 Unspecified asthma, uncomplicated; I25.10 Atherosclerotic heart disease of native coronary artery without angina pectoris; E11.40 Type 2 diabetes mellitus with diabetic neuropathy, unspecified; K63.9 Disease of intestine, unspecified; I10 Essential (primary) hypertension; E03.9 Hypothyroidism, unspecified; M81.0 Age-related osteoporosis without current pathological fracture; Z95.1 Presence of aortocoronary bypass graft; Z79.82 Long term (current) use of aspirin; Z99.81 Dependence on supplemental oxygen; Z79.899 Other long term (current) drug therapy

== ENCOUNTER 2017-04-29 23:44 | Inpatient (IN) | payer OTHER ==
[~2017-04-29] VITALS: Ht 149.9 cm; Wt 91.0 kg
[~2017-04-29 23:44] MED LIST changes: -BELL1TAB PO; +CALC-354 PO; -CALC-393 PO; -ISOS60TA25 PO; -NVLGI7030 SC; +NYST100010 TOP; +PHEN-778 PO; +SENN-61 PO; -SENN-65 PO; -XNX25 PO
[2017-04-30] VITALS (10 sets, daily range): BP systolic 101–165; BP diastolic 65–76; PULSE 69–83; TEMP 36.6–37.4; O2SAT 93–96; BMI 40.6
[2017-04-30] MEDS ORDERED: POLY335019 PO (00:18)
[2017-04-30] MEDS ORDERED: MOML PO (00:25)
[2017-04-30] MEDS ORDERED: IPRASOL4 INH (00:26)
[2017-04-30] MEDS ORDERED: BISA-16 PO (00:28)
[2017-04-30] MEDS ORDERED: OXYC-106 PO (00:28)
[2017-04-30 01:18] LABS: ALBUMIN 2.8 gm/dl (3.4-5.0); CALCIUM 8.9 mg/dl (8.5-10.1); CREATININE 0.84 mg/dl (0.60-1.20); TOTAL PROTEIN 7.2 gm/dl (6.4-8.2)
[2017-04-30 01:26] LABS: INFLUENZA B ANTIGEN Neg for Influ B (NEG)
[2017-04-30 01:49] LABS: POTASSIUM 4.1 mmol/L (3.5-5.1)
[2017-04-30] MEDS ORDERED: ASPIRIN/ALUM/MAGNES/CAL CARB 325 MG TAB PO STA (02:19)
[2017-04-30] MEDS ORDERED: MAGNESIUM SULFATE 1GM / D5W 2 GM in PREMIXED IN D5W 100 ML IV STA (02:19)
[2017-04-30] MEDS ORDERED: LEVAQUIN 750MG / 150ML D5W IV ONE (02:30)
[2017-04-30] MEDS ORDERED: MAGNESIUM SULFATE 1GM / D5W 1 GM BAG ONE (02:31)
[2017-04-30 02:49] LABS: BASO % 0.1 %; BASO ABS # 0.01 K/uL (0-0.2); EOS % 0.7 %; EOS ABS # 0.05 K/uL (0-0.5); HEMATOCRIT 32.3 % (37-47); HEMOGLOBIN 10.2 g/dL (12.0-16.0); IG# 0.02 K/uL (0.00-0.02); LYMPH % 31.4 %; LYMPH ABS # 2.15 K/uL (1.2-3.4); MEAN CELL VOLUME 100.9 fL (80-100); MEAN CORPUSCULAR HEMOGLOBIN 31.9 pg (25-34); MEAN CORPUSCULAR HGB CONC 31.6 g/dl (32-36); MEAN PLATELET VOLUME 9.3 fL (7.4-10.4); MONO % 18.4 %; MONO ABS # 1.26 K/uL (0.11-0.59); NEUT % 49.1 %; NEUT ABS # 3.36 K/uL (1.4-6.5); PLATELET COUNT 224 K/uL (130-400); RED CELL DISTRIBUTION WIDTH SD 51.4 fL (36.4-46.3); WHITE BLOOD COUNT 6.85 K/uL (4.8-10.8)
--- NOTE | 2017-04-30 02:49 | EMERGENCY ROOM VISIT NOTE ---
History Report prepared by Mally: Flores Nolasco Under the Supervision of: Dr. Rosie Sullivan D.O. First contact with patient: 23:58 Chief Complaint: ALTERED MENTAL STATUS Stated Complaint: AMS History of Present Illness The patient is an 81 year old female who presents to the Emergency Room with complaints of persistent altered mental status starting 2 days ago. She presents to the ED by EMS. Her daughter states that she has had some altered mental status for the past 2 days. This has happened in the past with illness and medication changes. Her oxygen saturation has been low into the 70s. She has been wearing oxygen. She normally only wears oxygen at night. Her daughter notes that she can hear gurgling when the patient is breathing. She has had a mild cough. Her cough has been productive. She has had bronchitis and pneumonia in the past. She has felt SOB with her cough and cold symptoms. She has not been doing breathing treatments at home. She has been using inhalers which help. She has vomited after coughing. She is having mid abdominal pain which improves with . She is having increased leg swelling. She denies any chest pain, fever, or chills. She has constipation which is not new. She denies any blood in her bowel movements or urinary symptoms. She usually does not elevate her legs when she sits. She received her flu shot this season. She has no known sick contacts. She has a history of asthma. Source of History: patient, family Onset: 2 days ago Position: other (global) Quality: other (AMS) Timing: other (persistent) Associated Symptoms: + cough, + SOB, + vomiting, + abdominal pain, No fevers , No chills, No chest pain, No hematochezia, No urinary symptoms Note: Pt reports low oxygen, leg swelling. Review of Systems See HPI for pertinent positives & negatives. A total of 10 systems reviewed and were otherwise negative. Past Medical & Surgical Medical Problems: (1) Asthma (2) Closed fracture of humerus (3) Coronary artery disease (4) Diabetes mellitus type 2 (5) Diabetic neuropathy (6) Diverticular disease of colon (7) Dizziness (8) Hypertension (9) Hypothyroidism (10) Osteoporosis Surgical Problems: (1) s p appendectomy (2) s p CABG (3) s p cataract surgery (4) s p colonoscopy (5) s p hysterectomy (6) s p PCI MONICA (7) s p PCI LM LCX MONICA (8) s p PCI PDA SVG MONICA Family History Patient reports no known family medical history. Social History Smoking Status: Never Smoker Alcohol Use: none Marital Status: Housing Status: lives with family Occupation Status: unemployed Current/Historical Medications Scheduled Alprazolam (Xanax), 0.25 MG PO TID Aspirin Enteric Coated (Ecotrin Or Generic), 81 MG PO QAM Calcium Carbonate-Cholecalcife (Caltrate 600+D), 1 TAB PO BID Clopidogrel Bisulfate (Plavix), 75 MG PO DAILY Diltiazem Hcl Coated Beads (Cardizem Cd), 180 MG PO QAM Docusate Sodium (Colace), 100 MG PO BID Escitalopram Oxalate (Lexapro), 20 MG PO DAILY Furosemide (Lasix), 10 MG PO BID Home O2 Therapy (Oxygen), 2 LITER NA CONTINOUS Insulin Human Isophan/Regular (Novolin 70/30), 20 SC QAM Insulin Isophan/Regular (Novolin 70/30), 10 UNITS SC QPM Isosorbide Mononitrate (Imdur Ext Rel), 120 MG PO QAM Levothyroxine Sodium (Synthroid), 125 MCG PO DAILY Metformin Hcl (Glucophage), 1,000 MG PO BID Oxycodone Hcl (Oxycontin), 40 MG PO TID Oxycodone/Acetaminophen 10MG/325MG (Percocet 10MG/325MG), 1 TAB PO TID Polyethylene Glycol 3350 (Miralax), 17 GM PO DAILY Potassium Chloride (Potassium Chloride Er), 20 MEQ PO QAM Ranitidine Hcl (Zantac), 150 MG PO BID Senna (Senokot), 1 TAB PO BID Venlafaxine Hcl (Venlafaxine Extended Rel), 37.5 MG PO DAILY Scheduled PRN Belladonna Alk/Phenobarbital (), 1 TAB PO TID PRN for Constipation Bisacodyl (Dulcolax), 2 TAB PO UD PRN for NO BM FOR 2 DAYS Dextromethorphan-Guaifenesin (Mucinex Dm), 1 TAB PO BID PRN for CONGESTION Fluocinonide (Lidex 0.05% Oint), 1 APPLN TP BID PRN for SKIN IRRITATION Fluticasone Propionate (Nasal) (Flonase Allergy Relief), 2 SPRAYS HENRY DAILY PRN for RHINITIS Ipratropium-Albuterol (Combivent Respimat), 1 PUFFS INH QID PRN for Wheezing Ipratropium-Albuterol (Duoneb), 1 TREATMENT INH Q4H PRN for Wheezing Magnesium Hydroxide (Milk Of Magnesia), 30 ML PO DAILY PRN for Constipation Nitroglycerin (Nitrostat), 0.4 MG UT UD PRN for Chest Pain Nystatin (Topical) (Nystop), 100,000 UNITS TOP TID PRN for RASH Oxycodone/Acetaminophen 10MG/325MG (Percocet 10MG/325MG), 1 TAB PO UD PRN for Pain Allergies Coded Allergies: Cefdinir (Verified Allergy, Unknown, EDDEMA FACE,LIPS,TONGUE, 10/26/16) Meperidine (Verified Allergy, Unknown, UNKNOWN, 04/30/17) Pioglitazone (Verified Allergy, Unknown, EDEMA, 10/26/16) Rosiglitazone (Verified Allergy, Unknown, EDEMA, 10/26/16) Sodium Benzoate (Verified Allergy, Unknown, EDDEMA FACE,LIPS,TONGUE, ) Beta Adrenergic Blockers (Verified Adverse Reaction, Unknown, UNKNOWN, ) Lorazepam (Verified Adverse Reaction, Unknown, UNKNOWN, 10/26/16) Physical Exam Vital Signs Date Time Temp Pulse Resp B/P (MAP) Pulse Ox O2 Delivery O2 Flow Rate FiO2 04/30/17 03:01 174/70 04/30/17 03:00 77 18 99 Nasal Cannula 2.0 04/30/17 02:31 157/55 04/30/17 02:30 74 24 96 04/30/17 02:01 173/69 04/30/17 02:00 74 25 97 04/30/17 01:52 77 20 191/69 97 Room Air 04/30/17 01:49 191/69 04/30/17 01:00 70 19 143/70 98 04/30/17 00:49 72 18 163/68 97 Room Air 04/29/17 23:54 75 04/29/17 23:48 37.0 73 18 182/68 88 Room Air Physical Exam GENERAL: alert, answering questions, well appearing, well nourished, no distress , non-toxic EYE EXAM: normal conjunctiva, PERRL and EOM's grossly intact OROPHARYNX: no exudate, no erythema, lips, buccal mucosa, and tongue normal and mucous membranes are moist NECK: supple, no nuchal rigidity, no adenopathy, non-tender LUNGS: Diminished breath sounds bilaterally. Faint scattered end expiratory wheezing. Normal chest wall mechanics HEART: no murmurs, S1 normal and S2 normal ABDOMEN: abdomen soft, non-tender, normo-active bowel sounds, no masses, no rebound or guarding. BACK: Back is symmetrical on inspection and there is no deformity, no midline tenderness, no CVA tenderness. SKIN: no rashes and no bruising UPPER EXTREMITIES: upper extremities are grossly normal. LOWER EXTREMITIES: Trace bilateral pedal edema. NEURO EXAM: Normal sensorium, cranial nerves II-XII grossly intact, normal speech, no gross weakness of arms, no gross weakness of legs. Medical Decision & Procedures ER Provider Diagnostic Interpretation: X-ray: I interpreted the following studies. Chest: A two view study of the chest was reviewed. No effusion. Cardiomegaly noted. Midline sternotomy wires noted. Infiltrate in right middle lobe. No overt pulmonary edema. Radiology results have been interpreted by the [facility] radiologist and reviewed by me. CT Head: Comparison: CT head 05/14/16 No acute intracranial abnormality. No ICH, mass effect, or edema. Cortical atrophy and white matter changes most consistent with chronic small vessel disease. Laboratory Results Test 04/30/17 00:28 04/30/17 00:32 04/30/17 00:40 04/30/17 01:48 Prothrombin Time 10.9 SECONDS (9.0-12.0) Prothromb Time International Ratio 1.0 (0.9-1.1) Pro-B-Type Natriuretic Peptide 2198 pg/ml (0-1800) Carbamazepine (Tegretol) Level < 0.5 mcg/ml (4-12) Bedside Lactic Acid Venous 1.04 mmol/L (0.90-1.70) Influenza Type A Antigen Neg for Influ A (NEG) Influenza Type B Antigen Neg for Influ B (NEG) Urine Color YELLOW Urine Appearance CLEAR (CLEAR) Urine pH 5.5 (4.5-7.5) Urine Specific [place] 1.022 (1.000-1.030) Urine Protein 1+ (NEG) Urine Glucose (UA) 2+ (NEG) Urine Ketones 1+ (NEG) Urine Occult Blood NEG (NEG) Urine Nitrite NEG (NEG) Urine Bilirubin NEG (NEG) Urine Urobilinogen NEG (NEG) Urine Leukocyte Esterase TRACE (NEG) Urine WBC (Auto) 5-10 /hpf (0-5) Urine RBC (Auto) 0-4 /hpf (0-4) Urine Hyaline Casts (Auto) 1-5 /lpf (0-5) Urine Epithelial Cells (Auto) 20-30 /lpf (0-5) Urine Bacteria (Auto) NEG (NEG) Laboratory results per my review. Medications Administered Medications (Trade) Dose Ordered Sig/Emanuel Route Start Time Stop Time Status Last Admin Dose Admin Aspirin/Aluminum/ Magnesium/Ca Carb (Ascriptin Tab) 325 mg NOW STAT PO 04/30/17 02:19 04/30/17 02:22 DC 04/30/17 02:53 325 MG Levofloxacin (Levaquin / D5W) 750 mg NOW ONCE IV 04/30/17 02:30 04/30/17 02:31 DC 04/30/17 05:20 750 MG Magnesium Sulfate (Magnesium Sulfate) 2 gm [email or web address] ONCE .ROUTE 04/30/17 02:31 04/30/17 02:32 DC 04/30/17 02:38 2 GM ECG Indication: altered mental status Rate (beats per minute): 73 Rhythm: sinus rhythm Findings: RBBB, no acute ischemic change, other (normal axis, normal QTc) Comparison ECG Date: 26-Oct-2016 Change: RBBB is new. ED Course 0001: The patient was evaluated in room A3. A complete history and physical exam was performed. The patient is DNR/DNI. 0050: Extensive additional conversation with daughter outside patient room. Patient has a history of paranoia, however in the last couple of days, patient has been acting more erratic and has had staring spells. Last night, she had difficulty feeding herself and eating and was giving bizarre answers to questions. 0219: Ascriptin Tab 325 mg PO. 0226: Upon reevaluation, the patient is resting comfortably. I discussed the findings and the treatment plan with the patient and her daughter. They express agreement and understanding. She will be evaluated for further management. 0230: Levofloxacin 750 mg IV. 0231: Magnesium Sulfate 2 gm IV. 0246: I reviewed the patient's case with Robin Aragon hospitalist. He will evaluate the patient for further management. Medical Decision Differential diagnosis: Etiologies such as infections, reactive airway disease, pneumonia, pneumothorax , COPD, CHF, cardiac ischemia, pulmonary embolism, musculoskeletal, gastrointestinal, metabolic, infection, hypoglycemia, electrolyte abnormalities , cardiac sources, intracerebral event, toxicologic, neurologic, as well as others were entertained. Pt well appearing here, answering questions appropriately despite recent confusion, no evidence of bacteremia/sepsis, VS stable. Pt wearing home oxygen more than usual, not hypoxic here on usual amounts. No evidence of overt CHF, elevated trop and BNP more likely secondary to infection, doubt ACS. Mag repleted in the ER. Pt given ASA as a precaution for elevated trop, no chest pain or SOB here. Pt and daughter aware of all results. Daughter concerned about pt's hx of paranoia also. Pt appropriate here, likely confusion worse due to infection given advanced age. Medication Reconcilliation Current Medication List: was personally reviewed by me Blood Pressure Screening Patient's blood pressure: Elevated blood pressure Referred to hospitalist. Consults Time Called: 0232 Consulting Physician: Robin Aragon hospitalist Returned Call: [phone] I reviewed the patient's case with him. He will evaluate the patient for further management. Impression Primary Impression: Altered mental status Additional Impressions: Pneumonia Elevated troponin Hypoxia Hypomagnesemia Critical Care I have personally spent greater than 40 minutes of critical care time in the direct management of this patient. This includes bedside care, interpretation of diagnostic studies, and testing, discussion with consultants, patient, and family members, and other required patient management activities. This 40 minutes is in excess of all separately billable procedures. Scribe Attestation The scribe's documentation has been prepared under my direction and personally reviewed by me in its entirety. I confirm that the note above accurately reflects all work, treatment, procedures, and medical decision making performed by me. Departure Information Dispostion Being Evaluated By Hospitalist Referrals Melba Lemos (PCP) Patient Instructions My [facility] Health Problem Qualifiers Primary Impression: Altered mental status Altered mental status type: transient alteration of awareness Qualified Codes : R40.4 - Transient alteration of awareness Additional Impressions: Pneumonia Pneumonia type: due to unspecified organism Laterality: right Lung location : middle lobe of lung Qualified Codes: J18.1 - Lobar pneumonia, unspecified organism
[2017-04-30] MEDS ORDERED: NITROGLYCERIN 0.4 MG SL PER TAB CHARGE UT PRN (03:30)
[2017-04-30] MEDS ORDERED: DEXTROSE 50% 50 ML SYR IV PRN (03:30)
[2017-04-30] MEDS ORDERED: GLUCAGON FOR INJ 1 MG VIAL SQ PRN (03:30)
[2017-04-30] MEDS ORDERED: BISACODYL 5 MG TABEC PO PRN (03:30)
[2017-04-30] MEDS ORDERED: IPRATROPIUM BROMIDE/ALBUTEROL respimat INH INH PRN (03:30)
[2017-04-30] MEDS ORDERED: GLUCOSE 10 TABS/TUBE PO PRN (03:30)
[2017-04-30] MEDS ORDERED: MAGNESIUM HYDROXIDE SUSP 30 ML UDC PO PRN (03:30)
[2017-04-30] MEDS ORDERED: NON-FORMULARY MEDICATION (Home O2 Therapy (Oxygen) 2 LITER) SCH (03:30)
[2017-04-30] MEDS ORDERED: FLUTICASONE PROPIONATE NA SPR 16 GM BTL NAE PRN (03:30)
--- NOTE | 2017-04-30 04:13 | History and Physical ---
History & Physical Date & Time of Service: Apr 30, 2017 at 04:09 Chief Complaint: Ams, Elevated Troponin, Pneumonia Primary Care Physician: Canelo,The History of Present Illness Source: patient This is a 81 year old F from the [facility] who as per the patient 's daughter has history of dementia but also has been having changes in mental status x 2 days - patient more forgetful, dropping things, becoming combative about refusing to go to the hospital to be evaluated for shortness of breath / cough. Patient also reported to have increased oxygen requirements - baseline wears oxygen at night but now needing more oxygen and had desaturation to the 70s. CT head negative Chest X ray concerning for pneumonia (Infiltrate in right middle lobe) and ED physician ordered Levaquin 750 mg IV Patient also has significant past cardiac history. In the ED patient had troponin of 0.629 with Right Bundle Branch Block but no chest pain and EKG was generally unchanged compared to previous EKGs. Patient was given aspirin 325 mg but no anticoagulation was started. The ED physician assessed that the troponin level elevated from illness When examined by hospitalist medicine physician at baseline, patient calm and breathing on nasal cannula. When asked about pain symptoms she denied chest pain. She reports that she does have pain below the umbilicus. The patient's daughter corroborated that this pain below the umbilicus has been there in the past and attributes this to irritable bowel syndrome Past Medical/Surgical History Medical Problems: (1) Asthma Status: Chronic (2) Closed fracture of humerus Status: Resolved (3) Coronary artery disease Status: Chronic (4) Diabetes mellitus type 2 Status: Chronic (5) Diabetic neuropathy Status: Chronic (6) Diverticular disease of colon Status: Chronic (7) Hypertension Status: Chronic (8) Hypothyroidism Status: Chronic (9) Osteoporosis Status: Chronic Surgical Problems: (1) s p appendectomy Status: Resolved (2) s p CABG Permanent Comment: [facility] [address] Dr. Elmer MITCHELL - LAD SVG-RPDA SVG-LPLA Status: Resolved (3) s p cataract surgery Status: Resolved (4) s p colonoscopy Status: Resolved (5) s p hysterectomy Status: Resolved (6) s p PCI MONICA Permanent Comment: [facility] May 2011 Status: Resolved (7) s p PCI LM LCX MONICA Permanent Comment: [facility] November 2008 Status: Resolved (8) s p PCI PDA SVG MONICA Permanent Comment: [facility] October 2008 Status: Resolved Family History Patient reports no known family medical history. Social History Smoking Status: Never Smoker Marital Status: Housing status: lives with family Occupational Status: unemployed Immunizations History of Influenza Vaccine: Yes Influenza Vaccine Date: Jan 03, 2012 History of Tetanus Vaccine?: Unknown History of Pneumococcal: Yes Pneumococcal Date: May 13, 2005 History of Hepatitis B Vaccine: No Multi-Drug Resistant Organisms History of MDRO: No Allergies Coded Allergies: Cefdinir (Verified Allergy, Unknown, EDDEMA FACE,LIPS,TONGUE, 10/26/16) Meperidine (Verified Allergy, Unknown, UNKNOWN, 04/30/17) Pioglitazone (Verified Allergy, Unknown, EDEMA, 10/26/16) Rosiglitazone (Verified Allergy, Unknown, EDEMA, 10/26/16) Sodium Benzoate (Verified Allergy, Unknown, EDDEMA FACE,LIPS,TONGUE, ) Beta Adrenergic Blockers (Verified Adverse Reaction, Unknown, UNKNOWN, ) Lorazepam (Verified Adverse Reaction, Unknown, UNKNOWN, 10/26/16) Home Medications Scheduled Alprazolam (Xanax), 0.25 MG PO TID Aspirin Enteric Coated (Ecotrin Or Generic), 81 MG PO QAM Calcium Carbonate-Cholecalcife (Caltrate 600+D), 1 TAB PO BID Clopidogrel Bisulfate (Plavix), 75 MG PO DAILY Diltiazem Hcl Coated Beads (Cardizem Cd), 180 MG PO QAM Docusate Sodium (Colace), 100 MG PO BID Escitalopram Oxalate (Lexapro), 20 MG PO DAILY Furosemide (Lasix), 10 MG PO BID Home O2 Therapy (Oxygen), 2 LITER NA CONTINOUS Insulin Human Isophan/Regular (Humulin 70/30), 20 UNITS SC QAM Insulin Isophan/Regular (Novolin 70/30), 10 UNITS SC QPM Isosorbide Mononitrate (Imdur Ext Rel), 120 MG PO QAM Levothyroxine Sodium (Synthroid), 125 MCG PO DAILY Metformin Hcl (Glucophage), 1,000 MG PO BID Oxycodone Hcl (Oxycontin), 40 MG PO TID Oxycodone/Acetaminophen 10MG/325MG (Percocet 10MG/325MG), 1 TAB PO TID Polyethylene Glycol 3350 (Miralax), 17 GM PO DAILY Potassium Chloride (Potassium Chloride Er), 20 MEQ PO QAM Ranitidine Hcl (Zantac), 150 MG PO BID Senna (Senokot), 1 TAB PO BID Venlafaxine Hcl (Venlafaxine Extended Rel), 37.5 MG PO DAILY Scheduled PRN Belladonna Alk/Phenobarbital (), 1 TAB PO TID PRN for Constipation Bisacodyl (Dulcolax), 2 TAB PO UD PRN for NO BM FOR 2 DAYS Dextromethorphan-Guaifenesin (Mucinex Dm), 1 TAB PO BID PRN for CONGESTION Fluocinonide (Lidex 0.05% Oint), 1 APPLN TP BID PRN for SKIN IRRITATION Fluticasone Propionate (Nasal) (Flonase Allergy Relief), 2 SPRAYS HENRY DAILY PRN for RHINITIS Ipratropium-Albuterol (Combivent Respimat), 1 PUFFS INH QID PRN for Wheezing Ipratropium-Albuterol (Duoneb), 1 TREATMENT INH Q4H PRN for Wheezing Magnesium Hydroxide (Milk Of Magnesia), 30 ML PO DAILY PRN for Constipation Nitroglycerin (Nitrostat), 0.4 MG UT UD PRN for Chest Pain Nystatin (Topical) (Nystop), 100,000 UNITS TOP TID PRN for RASH Oxycodone/Acetaminophen 10MG/325MG (Percocet 10MG/325MG), 1 TAB PO UD PRN for Pain Review of Systems Constitutional: No fever Respiratory: + cough, + shortness of breath Cardiovascular: No chest pain, No palpitations Abdomen: + pain, No nausea, No vomiting Genitourinary - Female: No dysuria Neurologic: + problem reported (altered mentals status compared to baseline as per patient's family member) Hematologic / Lymphatic: No abnormal bleeding/bruising Integumentary: No rash Physical Exam Vital Signs Date Time Temp Pulse Resp B/P (MAP) Pulse Ox O2 Delivery O2 Flow Rate FiO2 04/30/17 03:17 76 04/30/17 03:01 174/70 04/30/17 03:00 77 18 99 Nasal Cannula 2.0 04/30/17 02:31 157/55 04/30/17 02:30 74 24 96 04/30/17 02:01 173/69 04/30/17 02:00 74 25 97 04/30/17 01:52 77 20 191/69 97 Room Air 04/30/17 01:49 191/69 04/30/17 01:00 70 19 143/70 98 04/30/17 00:49 72 18 163/68 97 Room Air 04/29/17 23:54 75 04/29/17 23:48 37.0 73 18 182/68 88 Room Air General Appearance: no apparent distress, + obese Head: normocephalic, atraumatic Eyes: normal inspection, EOMI, sclerae normal ENT: normal ENT inspection, hearing grossly normal, pharynx normal Neck: supple, no JVD, trachea midline Respiratory/Chest: no respiratory distress, no accessory muscle use, + decreased breath sounds Cardiovascular: regular rate, rhythm, no edema, normal peripheral pulses Abdomen/GI: normal bowel sounds, non tender, soft Extremities/Musculoskelatal: normal inspection, no calf tenderness, normal range of motion, non-tender Neurologic/Psych: no motor/sensory deficits, alert, normal mood/affect Skin: normal color, warm/dry, no rash Diagnostics Laboratory Results Results Past 24 Hours Test 04/30/17 00:28 04/30/17 00:32 04/30/17 00:40 04/30/17 01:28 Range/Units Prothrombin Time 10.9 9.0-12.0 SECONDS Prothromb Time International Ratio 1.0 0.9-1.1 Sodium Level 136 136-145 mmol/L Potassium Level 4.1 3.5-5.1 mmol/L Chloride Level 101 98-107 mmol/L Carbon Dioxide Level 28 21-32 mmol/L Anion Gap 7.0 3-11 mmol/L Blood Urea Nitrogen 17 7-18 mg/dl Creatinine 0.84 0.60-1.20 mg/dl Est Creatinine Clear Calc Drug Dose 53.0 ml/min Estimated GFR () 74.5 Estimated GFR (Non- 64.3 BUN/Creatinine Ratio 20.0 10-20 Random Glucose 218 70-99 mg/dl Calcium Level 8.9 8.5-10.1 mg/dl Magnesium Level 1.4 1.8-2.4 mg/dl Total Bilirubin 0.4 0.2-1 mg/dl Aspartate Amino Transf (AST/SGOT) 16 15-37 U/L Alanine Aminotransferase (ALT/SGPT) 20 21 12-78 U/L Alkaline Phosphatase 73 45-117 U/L Troponin I 0.629 0-0.045 ng/ml Pro-B-Type Natriuretic Peptide 2198 0-1800 pg/ml Total Protein 7.2 6.4-8.2 gm/dl Albumin 2.8 3.4-5.0 gm/dl Globulin 4.4 2.5-4.0 gm/dl Albumin/Globulin Ratio 0.6 0.9-2 Carbamazepine (Tegretol) Level < 0.5 4-12 mcg/ml Bedside Lactic Acid Venous 1.04 0.90-1.70 mmol/L Influenza Type A Antigen Neg for Influ A NEG Influenza Type B Antigen Neg for Influ B NEG Test 04/30/17 02:40 Range/Units White Blood Count 6.85 4.8-10.8 K/uL Red Blood Count 3.20 4.2-5.4 M/uL Hemoglobin 10.2 12.0-16.0 g/dL Hematocrit 32.3 37-47 % Mean Corpuscular Volume 100.9 80-100 fL Mean Corpuscular Hemoglobin 31.9 25-34 pg Mean Corpuscular Hemoglobin Concent 31.6 32-36 g/dl Platelet Count 224 130-400 K/uL Mean Platelet Volume 9.3 7.4-10.4 fL Neutrophils (%) (Auto) 49.1 % Lymphocytes (%) (Auto) 31.4 % Monocytes (%) (Auto) 18.4 % Eosinophils (%) (Auto) 0.7 % Basophils (%) (Auto) 0.1 % Neutrophils # (Auto) 3.36 1.4-6.5 K/uL Lymphocytes # (Auto) 2.15 1.2-3.4 K/uL Monocytes # (Auto) 1.26 0.11-0.59 K/uL Eosinophils # (Auto) 0.05 0-0.5 K/uL Basophils # (Auto) 0.01 0-0.2 K/uL RDW Standard Deviation 51.4 36.4-46.3 fL RDW Coefficient of Variation 14.0 11.5-14.5 % Immature Granulocyte % (Auto) 0.3 % Immature Granulocyte # (Auto) 0.02 0.00-0.02 K/uL Microbiology Results 04/30/17 Blood Culture, Received Pending 04/30/17 Blood Culture, Received Pending Impression Assessment and Plan This is an 81 year old F with significant PMH for heart disease who presents to the ED for respiratory symptoms found to have pneumonia and the respiratory symptoms correlated with changes in mental status, also found to have elevated troponins but no active chest pain As per 11/20/2015 outpatient cardiology note patient has heart history for: Multivessel ASCVD S/P 01/2002 CABG with a MICTHELL-LAD, SVG-RPDA, and SVG-LPLA S/P October 2008 PCI of the SVG and anastomosis with the PDA with a drug-eluting stent. S/P November 2008 PCI to the distal LM and LCX with a drug-eluting stent on 2008. May 2011 catheterization with severe 3-vessel [place] coronary artery disease with a new 80% lesion in the PDA, occluded vein graft to the circumflex- posterolateral branch which is known from previous study, patent MITCHELL to LAD graft and a patent vein graft to posterior descending artery. Patient status post PCI of the distal RCA/PDA with a 3.0 x 18 [place] drug-eluting stent and PCI of a 70% lesion at the anastomosis site of the venous graft to the RCA with 3.0 x 12 [place] drug-eluting stent While the elevated troponins may be from demand ischemia, patient has history of significant cardiac disease and there is possibility that patient may have NSTEMI Cardiology requested to evaluate the patient Patient received aspirin 324 mg in the ED, will start IV heparin until further cardiology evaluation Echocardiogram ordered BNP on admission is 3000, no overt pulmonary edema on CXR, will continue home oral doses of Lasix Appreciate cardiology recommendation on diuretic management Patient is also reported to have Beta-lilia intolerance in outpatient cardiology records Hypertension - Continue Diltiazem and Imdur Pneumonia - Levaquin 750 mg x 1 given in the ED, f/u blood cultures, send procalcitonin History of Asthma - duonebs prn Hypomagnesemia - serum magnesium 1.4 on admission, magnesium 2 gram IV ordered by ED provider to be given, repeat magnesium levels and replete as needed Mental Status History of dementia as per patient's family CT head negative for stroke Metabolic encephalopathy from illness Patient appears to be on high doses of scheduled narcotics on home medications OxyContin 40 mg TID and Percocet TID; will continue as OxyContin 40 mg BID for now to prevent mental status changes from polypharmacy and at the same time giving some narcotics to prevent opioid withdrawal symptoms Patient has been cooperative on exam and is verbal Bowel regimen Type 2 diabetes mellitus - continue home insulin regimen DVT ppx SCD,: IV heparin for now DNR/DNI as per discussion with patient and her daughter Tricia [phone] Patient follows with PCP Dr. Guerra and Cardiology at [facility] Telemetry Resuscitation Status DO NOT RESUSCITATE VTE Prophylaxis VTE Risk Assessment Done? Y/N: Yes Risk Level: Moderate
[2017-04-30] MEDS: LEVOTHYROXINE 125 MCG TAB PO SCH (06:10)
[2017-04-30] MEDS: OXYCODONE HCL 40 MG TABCR (OXYCONTIN) PO SCH ×2 (06:34→18:04)
--- NOTE | 2017-04-30 06:37 | DIAGNOSTIC IMAGING REPORT ---
HEAD CT NONCONTRAST CT DOSE: 691.05 mGy.cm HISTORY: Altered mental status. TECHNIQUE: Multiaxial CT images of the head were performed without the use of intravenous contrast. Automated exposure control was utilized for this study. A dose lowering technique was utilized adhering to the principles of ALARA. Comparison: Head CT 05/14/2016. Findings: The paranasal sinuses and mastoid air cells are clear. The calvarium and skull base are intact. There is no mass, hematoma, midline shift, acute infarct. White matter hypodensity is nonspecific but suggestive of microvascular ischemic change. The ventricles and sulci demonstrate mild age-related involutional changes. Impression: No significant change compared to the prior study. No acute intracranial abnormality. Electronically signed by: Luis Manuel Napoles M.D. 04/30/2017 6:35 AM Dictated Date/Time: 04/30/2017 6:33 AM
[2017-04-30] MEDS ORDERED: INSU70IN2 SC (07:18)
[2017-04-30 07:24] LABS: HEMATOCRIT 33.4 % (37-47); HEMOGLOBIN 10.6 g/dL (12.0-16.0); MEAN CELL VOLUME 100.6 fL (80-100); MEAN CORPUSCULAR HEMOGLOBIN 31.9 pg (25-34); MEAN CORPUSCULAR HGB CONC 31.7 g/dl (32-36); MEAN PLATELET VOLUME 9.5 fL (7.4-10.4); PLATELET COUNT 217 K/uL (130-400); RED CELL DISTRIBUTION WIDTH CV 13.9 % (11.5-14.5); WHITE BLOOD COUNT 6.86 K/uL (4.8-10.8)
[2017-04-30] MEDS ORDERED: INSULIN HUMAN 70% NPH/30% REGULAR SC SCH ×2 (07:30→16:45)
[2017-04-30] MEDS ORDERED: INSULIN 70% ASPART PROTAMINE/30% ASPART SC SCH (07:30)
--- NOTE | 2017-04-30 07:31 | DIAGNOSTIC IMAGING REPORT ---
CHEST 2 VIEWS ROUTINE HISTORY: Cough. Short of breath. COMPARISON: Chest 10/26/2016. FINDINGS: The heart remains moderately enlarged. Post anatomy changes. No pleural effusions. No pneumothorax. The left lung is clear. Old, healed left humeral neck fracture. Interval development of a 5 cm from airspace opacity within the right midlung zone. IMPRESSION: A focal right midlung zone airspace opacity. This favors a pneumonia. However, one month chest x-ray follow-up is recommended to ensure resolution and to exclude the possibility of a pulmonary lesion. Electronically signed by: Luis Manuel Napoles M.D. 04/30/2017 7:30 AM Dictated Date/Time: 04/30/2017 7:27 AM
[2017-04-30] MEDS ORDERED: PERFLUTREN LIPID MICROSPHERE (DEFINITY) IV ONE (07:50)
[2017-04-30 07:59] LABS: ALBUMIN 2.7 gm/dl (3.4-5.0); CALCIUM 9.2 mg/dl (8.5-10.1); CREATININE 0.68 mg/dl (0.60-1.20); POTASSIUM 3.8 mmol/L (3.5-5.1)
[2017-04-30 08:04] LABS: BASO % 0.1 %; BASO ABS # 0.01 K/uL (0-0.2); EOS % 0.7 %; EOS ABS # 0.05 K/uL (0-0.5); IG# 0.03 K/uL (0.00-0.02); LYMPH % 31.2 %; LYMPH ABS # 2.14 K/uL (1.2-3.4); MONO % 18.5 %; MONO ABS # 1.27 K/uL (0.11-0.59); NEUT % 49.1 %; NEUT ABS # 3.36 K/uL (1.4-6.5)
[2017-04-30 08:09] LABS: TOTAL PROTEIN 7.2 gm/dl (6.4-8.2)
[2017-04-30] MEDS ORDERED: ONDANSETRON INJ 2 MG/ML 2 ML VIAL ONE (08:14)
[2017-04-30] MEDS ORDERED: ONDANSETRON INJ 2 MG/ML 2 ML VIAL IV PRN (08:15)
[2017-04-30] MEDS: ALBUT/IPRATROP 3MG/0.5MG NEB 3 ML VIAL INH SCH ×5 (08:28→19:31)
[2017-04-30] MEDS ORDERED: VENLAFAXINE HCL XR 37.5 MG CAPXR PO SCH (09:00)
[2017-04-30] MEDS ORDERED: FUROSEMIDE INJ 40 MG in SYRINGE 0 ML IV SCH (09:00)
--- NOTE | 2017-04-30 09:21 | ECHOCARDIOGRAM REPORT ---
*NOTICE TO RECEIVING LIBERTARIAN AGENCY This information is strictly Confidential and protected under [place] law. [place] law prohibits you from making any further disclosure of this information unless further disclosure is expressly permitted by the written consent of the person to whom it pertains or is authorized by law. A general authorization for the release of medical or other information is not sufficient for this purpose. Hospital accepts no responsibility if the information is made available to any other person, INCLUDING THE PATIENT. Interpretation Summary * Name: BEVERLY PACHECO Study Date: 04/30/2017 07:19 AM BP: 151/70 mmHg * Patient Location: C.2T\S\S230\S\1 HR: 76 * : 1935 (M/d/yyy) Gender: Female Height: 59 in * Age: 81 yrs Ethnicity: CA Weight: 201 lb * Ordering Physician: Frankie Ashley * Referring Physician: Melba Lemos * Performed By: Franchesca Ann RDCS * * Reason For Study: ELEVATED TROPONIN * BSA: 1.8 m2 * -- Conclusions -- * The left ventricle is normal in size. * There is normal left ventricular wall thickness. * No regional wall motion abnormalities noted. * Ejection Fraction = 55-60%. * Grade I diastolic dysfunction, (abnormal relaxation pattern). * Aortic valve sclerosis moderate, without significant aortic valvular stenosis. * There is mild tricuspid regurgitation. * Right ventricular systolic pressure is moderately elevated at 40-50mmHg. Procedure Details * A contrast injection of Definity was performed to improve assessment of LV function. * Contrast was injected into an intravenous site in the left arm. * One vial of Definity ultrasound contrast was diluted in normal saline to a total volume of 10 ml. A total of '2' ml of solution was administered during imaging. * Lot # [id number] of Definity utilized for procedure. * Expiration date 1 JUN 05. * The attending nurse who injected the contrast agent was MAR HEWITT. * A complete two-dimensional transthoracic echocardiogram was performed (2D, M-mode, Doppler and color flow Doppler). Left Ventricle * The left ventricle is normal in size. * There is normal left ventricular wall thickness. * Ejection Fraction = 55-60%. * Left ventricular systolic function is normal. * No regional wall motion abnormalities noted. Right Ventricle * The right ventricle is normal in size and function. Atria * Borderline left atrial enlargement. * Right atrial size is normal. * No ASD detected; PFO is not assessed. Mitral Valve * The mitral valve anatomy is normal. * There is no mitral valve stenosis. * There is trace mitral regurgitation. Tricuspid Valve * The tricuspid valve anatomy is normal. * There is no tricuspid stenosis. * There is mild tricuspid regurgitation. * Right ventricular systolic pressure is elevated at 40-50mmHg. Aortic Valve * The aortic valve is trileaflet. * Aortic valve sclerosis moderate, without significant aortic valvular stenosis. * No aortic regurgitation is present. Pulmonic Valve * The pulmonic valve is not well visualized. Great Vessels * The aortic root is normal size. Pericardium/Pleural * There is no pericardial effusion. Left Ventricular Diastolic Function * Grade I diastolic dysfunction, (abnormal relaxation pattern). MMode 2D Measurements and Calculations Ao root diam 2.6 cm Ao root area 5.3 cm\S\2 LA dimension 4.1 cm LA/Ao 1.6 LVOT diam 1.9 cm LVOT area 2.9 cm\S\2 LVAd ap4 26.3 cm\S\2 LVLd ap4 7.4 cm EDV(MOD-sp4) 78.4 ml EDV(sp4-el) 79.1 ml LVAs ap4 16.3 cm\S\2 LVLs ap4 7.1 cm ESV(MOD-sp4) 30.8 ml ESV(sp4-el) 32.1 ml EF(MOD-sp4) 60.7 % EF(sp4-el) 59.4 % LVAd ap2 31.2 cm\S\2 LVLd ap2 7.5 cm EDV(MOD-sp2) 105.1 ml EDV(sp2-el) 109.8 ml LVAs ap2 19.0 cm\S\2 LVLs ap2 6.9 cm ESV(MOD-sp2) 43.0 ml ESV(sp2-el) 44.1 ml EF(MOD-sp2) 59.1 % EF(sp2-el) 59.9 % LVLd %diff 1.1 % EDV(MOD-bp) 90.9 ml LVLs %diff -1.70 % ESV(MOD-bp) 36.6 ml EF(MOD-bp) 59.8 % SV(MOD-sp4) 47.6 ml SI(MOD-sp4) 25.7 ml/m\S\2 SV(MOD-sp2) 62.1 ml SI(MOD-sp2) 33.6 ml/m\S\2 SV(MOD-bp) 54.3 ml SI(MOD-bp) 29.4 ml/m\S\2 SV(sp4-el) 47.0 ml SI(sp4-el) 25.4 ml/m\S\2 SV(sp2-el) 65.8 ml SI(sp2-el) 35.6 ml/m\S\2 Doppler Measurements and Calculations MV E max kelsea 104.9 cm/sec MV A max kelsea 143.5 cm/sec MV E/A 0.73 MV dec time 0.29 sec Ao V2 max 226.0 cm/sec Ao max PG 20.4 mmHg Ao max PG (full) 12.3 mmHg Ao V2 mean 158.4 cm/sec Ao mean PG 11.2 mmHg Ao mean PG (full) 7.2 mmHg Ao V2 VTI 50.6 cm NICOLE(I,A) 1.7 cm\S\2 NICOLE(I,D) 1.7 cm\S\2 NICOLE(V,A) 1.8 cm\S\2 NICOLE(V,D) 1.8 cm\S\2 LV V1 max PG 8.2 mmHg LV V1 mean PG 4.0 mmHg LV V1 max 142.4 cm/sec LV V1 mean 92.6 cm/sec LV V1 VTI 28.8 cm SV(Ao) 268.1 ml SI(Ao) 145.1 ml/m\S\2 SV(LVOT) 84.2 ml SI(LVOT) 45.6 ml/m\S\2 TR max kelsea 311.9 cm/sec
[2017-04-30] MEDS: FUROSEMIDE 20 MG TAB PO SCH ×2 (09:29→17:00)
[2017-04-30] MEDS: POTASSIUM CHLORIDE 10 MEQ TABCR PO SCH (09:29)
[2017-04-30] MEDS: ISOSORBIDE MONONITRATE 60 MG TABCR PO SCH (09:29)
[2017-04-30] MEDS: ASPIRIN 81 MG ECTAB PO SCH (09:30)
[2017-04-30] MEDS: SENNA 8.6 MG TAB PO SCH ×2 (09:30→21:12)
[2017-04-30] MEDS: DILTIAZEM HCL 180 MG CAPCR PO SCH (09:30)
[2017-04-30] MEDS: CLOPIDOGREL BISULFATE 75 MG TAB PO SCH (09:30)
[2017-04-30] MEDS: CALCIUM 600MG + VIT D 400 IU TAB PO SCH ×2 (09:30→21:12)
[2017-04-30] MEDS: DOCUSATE SODIUM 100 MG CAP PO SCH ×2 (09:30→21:12)
[2017-04-30] MEDS: ESCITALOPRAM OXALATE 20 MG TAB PO SCH (09:30)
[2017-04-30] MEDS: RANITIDINE HCL 150 MG TAB PO SCH ×2 (09:31→21:12)
[2017-04-30] MEDS: INSULIN ASPART 100 UNITS/ML 3 ML PEN SC SCH ×4 (09:36→21:14)
[2017-04-30] MEDS ORDERED: PHARMACY GLYCEMIC MGMT CONSULT PRN (13:00)
[2017-04-30] MEDS ORDERED: HEPARIN 25,000 UNIT/500ML D5W 500 ML IV PRN (13:00)
--- NOTE | 2017-04-30 14:06 | Progress Note ---
Medicine Progress Note Date & Time of Visit: Apr 30, 2017 at 13:51. Subjective seen resting in bed, brushing her teeth states she feels fine overall has dry cough, but no dyspnea, hemoptysis, chest pain, palpitations, dizziness no fever/chills, no muscle aches denies other symptoms states she feels fine otherwise Objective Last 8 Hrs Date Time Temp Pulse Resp B/P (MAP) Pulse Ox O2 Delivery O2 Flow Rate FiO2 04/30/17 11:59 37.4 81 19 156/71 (99) 93 Room Air 04/30/17 11:14 72 16 96 Nasal Cannula 3.0 04/30/17 08:31 77 16 96 Nasal Cannula 3.0 04/30/17 07:58 37.3 76 19 151/70 (97) 94 Nasal Cannula 2.0 Physical Exam: General- oriented x 3, not in distress, speaks in sentences with no effort Head- atraumatic Eyes- PERRL, EOMI, anicteric ENT- oropharynx clear Neck- supple, no JVD, no adenopathy, no thyromegaly Lungs- clear breaths sounds bilaterally Heart- regular rhythm; no murmur, normal rate Abdomen- normal bowel sounds, soft, nontender Extremities- no pretibial edema, no calf tenderness; peripheral pulses intact Neuro- alert, oriented x 3; no gross focal deficits Skin- warm & dry Laboratory Results: Last 24 Hours Test 04/30/17 00:28 04/30/17 00:32 04/30/17 00:40 04/30/17 01:28 Prothrombin Time 10.9 SECONDS Prothromb Time International Ratio 1.0 Sodium Level 136 mmol/L Potassium Level mmol/L 4.1 mmol/L Chloride Level 101 mmol/L Carbon Dioxide Level 28 mmol/L Anion Gap 7.0 mmol/L Blood Urea Nitrogen 17 mg/dl Creatinine 0.84 mg/dl Est Creatinine Clear Calc Drug Dose 53.0 ml/min Estimated GFR () 74.5 Estimated GFR (Non- 64.3 BUN/Creatinine Ratio 20.0 Random Glucose 218 mg/dl Calcium Level 8.9 mg/dl Magnesium Level mg/dl 1.4 mg/dl Total Bilirubin 0.4 mg/dl Aspartate Amino Transf (AST/SGOT) U/L 16 U/L Alanine Aminotransferase (ALT/SGPT) 20 U/L 21 U/L Alkaline Phosphatase 73 U/L Troponin I 0.629 ng/ml Pro-B-Type Natriuretic Peptide 2198 pg/ml Total Protein 7.2 gm/dl Albumin 2.8 gm/dl Globulin 4.4 gm/dl Albumin/Globulin Ratio 0.6 Carbamazepine (Tegretol) Level < 0.5 mcg/ml Bedside Lactic Acid Venous 1.04 mmol/L Influenza Type A Antigen Neg for Influ A Influenza Type B Antigen Neg for Influ B Test 04/30/17 01:48 04/30/17 02:40 04/30/17 06:43 04/30/17 07:09 Urine Color YELLOW Urine Appearance CLEAR Urine pH 5.5 Urine Specific Morley 1.022 Urine Protein 1+ Urine Glucose (UA) 2+ Urine Ketones 1+ Urine Occult Blood NEG Urine Nitrite NEG Urine Bilirubin NEG Urine Urobilinogen NEG Urine Leukocyte Esterase TRACE Urine WBC (Auto) 5-10 /hpf Urine RBC (Auto) 0-4 /hpf Urine Hyaline Casts (Auto) 1-5 /lpf Urine Epithelial Cells (Auto) 20-30 /lpf Urine Bacteria (Auto) NEG White Blood Count 6.85 K/uL 6.86 K/uL Red Blood Count 3.20 M/uL 3.32 M/uL Hemoglobin 10.2 g/dL 10.6 g/dL Hematocrit 32.3 % 33.4 % Mean Corpuscular Volume 100.9 fL 100.6 fL Mean Corpuscular Hemoglobin 31.9 pg 31.9 pg Mean Corpuscular Hemoglobin Concent 31.6 g/dl 31.7 g/dl Platelet Count 224 K/uL 217 K/uL Mean Platelet Volume 9.3 fL 9.5 fL Neutrophils (%) (Auto) 49.1 % 49.1 % Lymphocytes (%) (Auto) 31.4 % 31.2 % Monocytes (%) (Auto) 18.4 % 18.5 % Eosinophils (%) (Auto) 0.7 % 0.7 % Basophils (%) (Auto) 0.1 % 0.1 % Neutrophils # (Auto) 3.36 K/uL 3.36 K/uL Lymphocytes # (Auto) 2.15 K/uL 2.14 K/uL Monocytes # (Auto) 1.26 K/uL 1.27 K/uL Eosinophils # (Auto) 0.05 K/uL 0.05 K/uL Basophils # (Auto) 0.01 K/uL 0.01 K/uL RDW Standard Deviation 51.4 fL 51.0 fL RDW Coefficient of Variation 14.0 % 13.9 % Immature Granulocyte % (Auto) 0.3 % 0.4 % Immature Granulocyte # (Auto) 0.02 K/uL 0.03 K/uL Bedside Glucose 244 mg/dl Dohle Bodies 1+ Sodium Level 136 mmol/L Potassium Level 3.8 mmol/L Chloride Level 99 mmol/L Carbon Dioxide Level 31 mmol/L Anion Gap 6.0 mmol/L Blood Urea Nitrogen 14 mg/dl Creatinine 0.68 mg/dl Est Creatinine Clear Calc Drug Dose 61.8 ml/min Estimated GFR () 93.8 Estimated GFR (Non- 80.9 BUN/Creatinine Ratio 19.9 Random Glucose 240 mg/dl Calcium Level 9.2 mg/dl Magnesium Level 2.0 mg/dl Total Bilirubin 0.4 mg/dl Aspartate Amino Transf (AST/SGOT) 13 U/L Alanine Aminotransferase (ALT/SGPT) 18 U/L Alkaline Phosphatase 71 U/L Troponin I 0.469 ng/ml Total Protein 7.2 gm/dl Albumin 2.7 gm/dl Globulin 4.5 gm/dl Albumin/Globulin Ratio 0.6 Procalcitonin < 0.05 ng/ml Test 04/30/17 11:13 04/30/17 12:58 Bedside Glucose 286 mg/dl Activated Partial Thromboplast Time 28.0 SECONDS Partial Thromboplastin Ratio 1.1 Troponin I 0.325 ng/ml Date/Time Source Procedure Growth Status 04/30/17 02:40 Blood Blood Culture Pending Received 04/30/17 02:40 Blood Blood Culture Pending Received Assessment & Plan 81 year old female with history of CAD, DM 2, HTN, Asthma, presenting with shortness of breath. PNEUMONIA, RIGHT MIDDLE LOBE R/O ASPIRATION R/O PULMONARY EMBOLISM R/O MASS - sputum culture blood culture - speech therapy consult - empiric Levaquin monitor response - patient presented with hypoxia, echo showing elevated R sided hear pressure also discussed with Dr. Nunez, CT angio and heparin ordered - discussed findings, impression and plan of care with patient at length patient declining antibiotic, CT angio and heparin at this time oriented to time, person and place; can verbalize risks and benefits of not being treated with antibiotics, heparin and not doing CT angio- including worsening of infection, progressive shortness of breath and even "if that's what the good Lord wants, then let it be" -- RN to continue discussion with patient will monitor MILD TROPONIN ELEVATION - history of CAD, STENT - 0.6 to 0.3 to o.2 - EKG: no signs of acute ischemia - echo: -- Conclusions -- * The left ventricle is normal in size. * There is normal left ventricular wall thickness. * No regional wall motion abnormalities noted. * Ejection Fraction = 55-60%. * Grade I diastolic dysfunction, (abnormal relaxation pattern). * Aortic valve sclerosis moderate, without significant aortic valvular stenosis. * There is mild tricuspid regurgitation. * Right ventricular systolic pressure is moderately elevated at 40-50mmHg. -- continue Aspirin, Plavix, Imdur, Dilzem Cardiology consulted DM TYPE 2 -- on Metformin, hold while inpatient on Insulin 70/30, ISS -- Pharmacy consulted HTN -- continue Imdur, Dilzem, Lasix APPARENT CHANGE IN MENTAL STATUS CHART HISTORY OF DEMENTIA without BEHAVIORAL DISTURBANCE - patient alert, oriented x 3 can explain risks and benefits of medical testing and treatment and declining to do such - xanax held- will check with [facility] if patient taking scheduled doses of this - Oxycodone 40mg changed to BID Percocet HELD - on Lexapro and Venlafaxine DVT prophylaxis -- heparin drip ordered DNR Disposition resident of [facility] Current Inpatient Medications: Current Inpatient Medications Medications (Trade) Dose Ordered Sig/Emanuel Route Start Time Stop Time Status Last Admin Dose Admin Insulin Aspart (novoLOG ASPART) SLIDING SCALE If C... ACHS SC 04/30/17 07:00 05/30/17 06:59 04/30/17 11:00 6 UNITS Glucose (Glucose Chew Tab) 4-8 Tablets 4 Tabl... UD PRN PO 04/30/17 03:30 05/30/17 03:29 Dextrose (Dextrose 50% 50ML Syringe) 25-50ML OF 50% DW IV FOR... UD PRN IV 04/30/17 03:30 05/30/17 03:29 Glucagon (Glucagon Inj) 1 mg UD PRN SQ 04/30/17 03:30 05/30/17 03:29 Aspirin (Ecotrin Tab) 81 mg QAM PO 04/30/17 09:00 05/30/17 08:59 04/30/17 09:30 81 MG Bisacodyl (Dulcolax Tab) 10 mg UD PRN PO 04/30/17 03:30 05/30/17 03:29 Clopidogrel Bisulfate (plAVix TAB) 75 mg DAILY PO 04/30/17 09:00 05/30/17 08:59 04/30/17 09:30 75 MG Diltiazem HCl (Cardizem Cd Cap) 180 mg QAM PO 04/30/17 09:00 05/30/17 08:59 04/30/17 09:30 180 MG Docusate Sodium (coLACE CAP) 100 mg BID PO 04/30/17 09:00 05/30/17 08:59 04/30/17 09:30 100 MG Escitalopram Oxalate (Lexapro Tab) 20 mg DAILY PO 04/30/17 09:00 05/30/17 08:59 04/30/17 09:30 20 MG Fluticasone Propionate (Flonase Nasal Douglas) 2 sprays DAILY PRN HENRY 04/30/17 03:30 05/30/17 03:29 Insulin Human Isoph/Insulin Regular (novoLIN 70/30 REGULAR) 10 units QDD SC 04/30/17 16:45 05/30/17 16:44 Albuterol/ Ipratropium (Combivent Respimat Inh) 1 puffs QID PRN INH 04/30/17 03:30 05/30/17 03:29 Isosorbide Mononitrate (Imdur Ext Rel Tab) 120 mg QAM PO 04/30/17 09:00 05/30/17 08:59 04/30/17 09:29 120 MG Levothyroxine Sodium (Synthroid Tab) 125 mcg DAILYBB PO 04/30/17 06:00 05/30/17 05:59 04/30/17 06:10 125 MCG Magnesium Hydroxide (Milk Of Magnesia Susp) 30 ml DAILY PRN PO 04/30/17 03:30 05/30/17 03:29 Nitroglycerin (Nitrostat Tab) 0.4 mg UD PRN UT 04/30/17 03:30 05/30/17 03:29 Ranitidine HCl (zANTac TAB) 150 mg BID PO 04/30/17 09:00 2/13/18 08:59 04/30/17 09:31 150 MG Senna (Senokot Tab) 8.6 mg BID PO 04/30/17 09:00 05/30/17 08:59 04/30/17 09:30 8.6 MG Venlafaxine HCl (effeXOR EXTENDED REL CAP) 37.5 mg DAILY PO 04/30/17 09:00 05/30/17 08:59 04/30/17 09:29 37.5 MG Calcium/Vitamin D (Caltrate Plus Tab) 1 tab BID PO 04/30/17 09:00 05/30/17 08:59 04/30/17 09:30 1 TAB Potassium Chloride (Klor-Con M10) 20 meq QAM PO 04/30/17 09:00 05/30/17 08:59 04/30/17 09:29 20 MEQ Albuterol/ Ipratropium (Duoneb) 3 ml QIDR INH 04/30/17 08:00 05/30/17 07:59 04/30/17 11:13 3 ML Furosemide (Lasix Tab) 10 mg BID17 PO 04/30/17 09:00 05/30/17 08:59 04/30/17 09:29 10 MG Oxycodone HCl (Oxycontin Tab) 40 mg Q12H PO 04/30/17 05:30 05/14/17 05:29 04/30/17 06:34 40 MG Insulin Human Isoph/Insulin Regular (novoLIN 70/30 REGULAR) 20 units QDB SC 04/30/17 07:30 05/30/17 07:29 04/30/17 09:37 20 UNITS Ondansetron HCl (Zofran Inj) 4 mg Q6H PRN IV 04/30/17 08:15 05/30/17 08:14 Miscellaneous Information (Consult Glycemic Management Pharmacy) 1 ea UD PRN N/A 04/30/17 13:00 05/30/17 12:59 Heparin Sodium/ Dextrose 500 ml @ 23 mls/hr [id number] PRN IV 04/30/17 13:00 05/30/17 12:59
--- NOTE | 2017-04-30 14:32 | Pharmacy Progress Note ---
Glycemic Control Intl Consult Date of Service Apr 30, 2017. Scope Glycemic Pharmacist consulted by Dr Hernadez on 04/30/17 for glycemic control and to write orders per [facility] inpatient glycemic control protocol Objective Weight (Kilograms): 91.200 Accuchecks BSG (last 24hrs): Test 04/30/17 00:28 04/30/17 06:43 04/30/17 07:09 04/30/17 11:13 Random Glucose 218 mg/dl (70-99) 240 mg/dl (70-99) Bedside Glucose 244 mg/dl (70-90) 286 mg/dl (70-90) Laboratory Data (last 24hrs) Test 04/30/17 00:28 04/30/17 01:28 04/30/17 02:40 04/30/17 07:09 Anion Gap 7.0 mmol/L 6.0 mmol/L BUN/Creatinine Ratio 20.0 19.9 Blood Urea Nitrogen 17 mg/dl 14 mg/dl Creatinine 0.84 mg/dl 0.68 mg/dl Potassium Level mmol/L 4.1 mmol/L 3.8 mmol/L Sodium Level 136 mmol/L 136 mmol/L White Blood Count 6.85 K/uL 6.86 K/uL Red Blood Count 3.20 M/uL 3.32 M/uL Hemoglobin 10.2 g/dL 10.6 g/dL Hematocrit 32.3 % 33.4 % Mean Corpuscular Volume 100.9 fL 100.6 fL Mean Corpuscular Hemoglobin 31.9 pg 31.9 pg Mean Corpuscular Hemoglobin Concent 31.6 g/dl 31.7 g/dl Platelet Count 224 K/uL 217 K/uL Mean Platelet Volume 9.3 fL 9.5 fL Neutrophils (%) (Auto) 49.1 % 49.1 % Lymphocytes (%) (Auto) 31.4 % 31.2 % Monocytes (%) (Auto) 18.4 % 18.5 % Eosinophils (%) (Auto) 0.7 % 0.7 % Basophils (%) (Auto) 0.1 % 0.1 % Neutrophils # (Auto) 3.36 K/uL 3.36 K/uL Lymphocytes # (Auto) 2.15 K/uL 2.14 K/uL Monocytes # (Auto) 1.26 K/uL 1.27 K/uL Eosinophils # (Auto) 0.05 K/uL 0.05 K/uL Basophils # (Auto) 0.01 K/uL 0.01 K/uL HbA1c 8.6% on 10/04/16 Recent Pertinent Medications Outpatient Anti-diabetic Regimen: * Novolin 70/30 pre-mixed insulin * 20 units in the morning with breakfast * 10 units in the evening with dinner Risk Factors for Insulin Resistance: * Infection * Diet * Stress/illness Assessment & Plan ASSESSMENT: * 81yo T2DM female with presumed adequate outpatient control per recent A1c. However, this value is outdated, will re-order for tomorrow with AM labs * Outpatient regimen is premixed basal/prandial insulin of Novolin 70/30 mix insulin. * Pre-mixed insulin is difficult to titrate since it is already in a fixed distribution of basal:prandial insulin. Continuing pre-mixed insulin for admission typically lead to hypoglycemia d/t changing PO status but rapid acting insulin is unable to be held. * Home regimen will be held for admission per pharmacy consult. Will utilize recommended regimen of SQ basal bolus insulin regimen with NPH as basal insulin + NovoLog per CF+CR. * Will start with stressed outpatient dosing for sustained hyperglycemia and titrate based on BSG trends PLAN FOR INPATIENT GLYCEMIC CONTROL: * Holding outpatient premixed insulin diabetes medication * Basal insulin * NPH 20 units SQ daily in AM with breakfast + 16 units SQ daily in PM with dinner * Bolus insulin * NovoLog per scale ACHS or Q6hrs while NPO * Goal Range: Low 130 mg/dL - High 160 mg/dL * Correction Factor: 25 mg/dL/unit * Nutritional / Prandial insulin per carb ratio of 1 unit per 9 grams CHO consumed * A1c with AM labs tomorrow * Please note that the plan above was derived based on current level of insulin resistance and hospital stress. These recommendations are appropriate for inpatient admission only. Plan of care upon discharge will need to be reassessed to avoid potential outpatient hypo/hyperglycemia. Thank you.
--- NOTE | 2017-04-30 15:13 | CARDIOLOGY CONSULTATION ---
DATE OF CONSULTATION: 04/30/2017 The patient seen and examined on 04/30/2017. REFERRING PHYSICIAN: Dr. Hernadez and Dr. Ashley. INDICATIONS: Cough, shortness of breath, and elevated troponin. HISTORY OF PRESENT ILLNESS: The patient is an 81-year-old female with complex cardiac history. She is currently a resident of [facility] in [place]. She carries an underlying history of known ischemic heart disease, which includes a history of prior coronary artery bypass grafting for multivessel disease in 2001, receiving a MITCHELL graft to the LAD, a saphenous vein graft to the right posterior descending artery and a saphenous vein graft to the posterolateral branch. She has undergone coronary interventions in 2008 of the saphenous vein graft to the posterior descending artery as well as extending to the distal left main and circumflex in November 2008. Last cardiac catheterization was in 2011, which demonstrated severe 3-vessel teller vessel coronary artery disease and an intact MITCHELL graft to the LAD with patent vein graft to the posterior descending artery. There was distal RCA disease and the patient received a drug-eluting stent to the distal posterior descending artery as well as the anastomosis of the site of the vein graft to the right coronary artery. She has been managed medically since that time with class 2 angina pectoris. She carries an underlying history of beta lilia intolerance, hypertension, hyperlipidemia, type 2 diabetes mellitus, documented asthmatic lung disease, hypothyroidism, chronic spinal stenosis. The patient presents now on this admission noting several days' history of worsening cough. She was initially recommended to undergo hospital evaluation earlier this week, which patient declined. She presented now with worsening mental status changes, cough and shortness of breath with increasing oxygen requirements. The patient chronically uses oxygen nocturnally. She presented to the Emergency Room, where a chest x-ray was notable for right middle lobe pneumonia. She was referred for hospitalization evaluation. Initial cardiac evaluation demonstrated elevated troponin and right bundle-branch block on EKG. The patient denies any current chest pain or recent chest pains. Notes no bleeding difficulties. Notes no melena, hematochezia, dysuria or hematuria. Does have a loose rhonchorous cough. Appetite has been generally good. Notes no melena, hematochezia, dysuria or hematuria. Weight has been gradually trending up on her own description. She attributes this to increased dietary intake at current residence. The patient feels she has improved overnight. ALLERGIES: LISTED TO BE ACTOS AND AVANDIA. SHE NOTES DIFFICULTIES WITH TOLERANCE TO BETA BLOCKERS WITH WHEEZING, CODEINE, MEPERIDINE. ON HER PAST OUTPATIENT EVALUATIONS, HIGHER DOSE OF CALCIUM CHANNEL BLOCKERS ALSO RESULTED IN SIGNIFICANT FATIGUE AND FLUID RETENTION. MEDICATIONS: Per list are Xanax 0.25 mg t.i.d., aspirin 81 mg per day, 1 tablet t.i.d. p.r.n. constipation, Dulcolax, calcium carbonate, Plavix 75 mg per day, diltiazem 180 mg p.o. daily, docusate 100 mg b.i.d., Lexapro 20 mg p.o. daily, furosemide 10 mg b.i.d., home oxygen 2 liters nasal cannula with recent titration, Novolin insulin, Combivent, DuoNeb inhalers, isosorbide 120 mg p.o. daily, levothyroxine 125 mcg p.o. daily, metformin 1000 mg b.i.d., oxycodone p.r.n. chronic pain, OxyContin as well, ranitidine, senna, venlafaxine 37.5 mg per day, potassium 20 mEq daily. PAST SURGICAL HISTORY: Notable for coronary artery bypass grafting as described in 2002, MITCHELL graft to LAD, saphenous vein graft to the posterolateral branch, saphenous vein graft to the distal posterior descending artery, breast biopsy, appendectomy, hysterectomy, cataract extraction. FAMILY HISTORY: Positive for heart disease in father. Stroke in daughter and brother. Son with coronary artery disease. SOCIAL HISTORY: The patient is currently a resident of [facility] where she resides with her . She is a nonsmoker and a nondrinker. PHYSICAL EXAMINATION: GENERAL: The patient is currently comfortable. VITAL SIGNS: Heart rate is 81, blood pressure is 156/71. HEENT: Normocephalic and atraumatic. Nares without discharge. Throat was clear. NECK: Supple without thyromegaly, lymphadenopathy, or JVD. LUNGS: Reveal coarse rhonchorous sounds on the right chest, worse with cough. CARDIOVASCULAR: Regular with normal S1 and S2. There is a less than grade 1/6 systolic murmur. There is no diastolic murmur. ABDOMEN: Soft and nontender. There is no palpable hepatosplenomegaly. There is no hepatojugular reflux. EXTREMITIES: Without cyanosis or clubbing. There is no peripheral edema today. DATA: Laboratory studies on presentation, white cell count is 6.8, hemoglobin is 10.2, platelet count is 224,000. Sodium is 136, chloride is 101, bicarbonate is 28, BUN is 17, creatinine is 0.84, glucose is 218. Troponin is elevated at 0.6, albumin is 2.8, second troponin is 0.46, glucose is in the 240s. Chest x-ray reveals an infiltrate in the right middle lobe. EKG reveals sinus rhythm with right bundle-branch block. The right bundle branch block is new for patient. Telemetry reveals short run of atrial tachycardia with right bundle-branch block configuration, otherwise a sinus rhythm. Echocardiogram demonstrates generally preserved LV function, subtle hypokinesis of the posterior wall not excluded. EF 55%-60%. There is aortic sclerosis without significant stenosis. There is moderate elevation in pulmonary pressures. The tricuspid valve regurgitant velocity is a new finding for the patient. IMPRESSION: An 81-year-old female with underlying history significant ischemic heart disease as well outlined, presents now with worsening cough, shortness of breath and increasing oxygen demands and decreased mentation. Findings suggest pneumonia by x-ray. The patient is generally afebrile and significant white cell count elevation not present. Given elevated troponins, new right bundle-branch block, and increasing tricuspid valve regurgitant velocities, we would recommend a CT scan to exclude thromboembolic disease given sedentary lifestyle and history of traumatic injury in the legs last years time. In the interim, we would treat as an infectious process. Anticoagulation will be initiated as already planned. Usual medications will be continued including diltiazem 180 mg per day with the patient notably intolerant of beta blockers and an increased dose of diltiazem in the past. We will follow the patient in the hospital. No signs or symptoms of heart failure. Initial assessment does not suggest acute ischemic origin, though demand ischemia not excluded, especially in the setting of acute hypoxia. MTDD
[2017-04-30] MEDS: ALPRAZOLAM 0.25 MG TAB PO SCH ×2 (16:15→21:00)
[2017-04-30] MEDS ORDERED: HALOPERIDOL 0.5 MG TAB PO PRN (16:15)
[2017-04-30] MEDS ORDERED: INSULIN HUMAN NPH SC SCH (16:45)
--- NOTE | 2017-04-30 16:47 | Psychiatric Consultation ---
Consultation Date of Consultation Apr 30, 2017. Identifying Data 81 yo female resident from [facility], admit to med floor with AMS, SOB with increase in O2 requirement, now refusing chest CT. Stat consult by Dr. Hernadez for capacity, telling nurse she wants to leave AMA. Chief Complaint "you are trying to trick me". History of Present Illness patient was admitted with hypoxia, apparently pneumonia with recommendations for CT angiogram and heparin anticoagulation. She had been cooperative with meds earlier this am then seemed to become paranoid and refuse care once CT was mentioned. It has been difficult for the medical floor to know how to approach the patient as despite her diagnosis of dementia she is quite verbal and oriented. Her medical team has extensive discussion with her about risks/ benefits/alternatives re: refusing treatment and she voices clear understanding that refusing antibiotics and testing can result in . Xanax was held on admission, reportedly has taken low dose benzo for years. Daughter and Son are POA and she states "they don't know what they are talking about". When liaison nurse met with patient, a family friend was at bedside and felt that the patient was confused compared to baseline and didn't recognize her. Current stressors include (also diagnosed with dementia) being placed out of their apartment at [facility] for rehab. She reportedly refused care stating "it's god's will". On speaking with me, she is able to voice understanding of proposed treatment and risks of but the reasons she doesn't want procedures/interventions are either incomplete or related to hopelessness. She voiced belief that she will lose her house (despite the fact she lives in personal care) and that she feels she's "done". She denies active suicidal ideation but feels that interventions are useless. She has significant tremor (some likely at baseline ) and insists that she is receiving Xanax as prescribed. She seemed to be relating information re: her children from the past. She recognizes she needs oxygen but was unaware of heart monitor despite being oriented X3. She states she made a mistake giving family her keys as otherwise she could drive. Per daughter to liaison she has a long history of anxiety and depression that predates her dementia. has overdosed her and herself with pain medications and Xanax to cope with her anxiety- not particularly to end her life. She has never had any inpatient psychiatric treatment. Her daughter states that she does remember a time when she had pills laid out on the table to take but her pile driver engineer made a surprise visit to see her and foiled her plan. Her daughter states that she "hates her life" and the fact that she is no longer able to live and she does not like living at the [facility]. Over the past week she has been more paranoid, thought others were poisoning her so she stopped eating and stopped taking pills. Daughter is very concerned that she is not making decisions and would like her to get medical treatment before returning to the [facility]. She believes she is altered and unable to make decisions at this time. Family also reported that she seemed paranoid prior to her hospitalization and had limited her eating due to belief she may be poisoned. Past Psychiatric History Current OP Treatment: no current treatment Prior OP Treatment: no prior treatment (other than meds per PCP) Access to a Gun: No Suicide Attempts: No Past Medical/Surgical History (1) Hypertension (2) Ovarian mass (3) Hypomagnesemia (4) Hypoxia (5) Altered mental status (6) Elevated troponin (7) Pneumonia (8) Diverticular disease of colon (9) Diabetic neuropathy (10) Osteoporosis (11) Hypothyroidism (12) Diabetes mellitus type 2 (13) Coronary artery disease (14) Asthma (15) s p CABG Allergies Allergies: Coded Allergies: Cefdinir (Verified Allergy, Unknown, EDDEMA FACE,LIPS,TONGUE, 10/26/16) Meperidine (Verified Allergy, Unknown, UNKNOWN, 04/30/17) Pioglitazone (Verified Allergy, Unknown, EDEMA, 10/26/16) Rosiglitazone (Verified Allergy, Unknown, EDEMA, 10/26/16) Sodium Benzoate (Verified Allergy, Unknown, EDDEMA FACE,LIPS,TONGUE, ) Beta Adrenergic Blockers (Verified Adverse Reaction, Unknown, UNKNOWN, ) Lorazepam (Verified Adverse Reaction, Unknown, UNKNOWN, 10/26/16) Home Medications Scheduled Alprazolam (Xanax), 0.25 MG PO TID Aspirin Enteric Coated (Ecotrin Or Generic), 81 MG PO QAM Calcium Carbonate-Cholecalcife (Caltrate 600+D), 1 TAB PO BID Clopidogrel Bisulfate (Plavix), 75 MG PO DAILY Diltiazem Hcl Coated Beads (Cardizem Cd), 180 MG PO QAM Docusate Sodium (Colace), 100 MG PO BID Escitalopram Oxalate (Lexapro), 20 MG PO DAILY Furosemide (Lasix), 10 MG PO BID Home O2 Therapy (Oxygen), 2 LITER NA CONTINOUS Insulin Human Isophan/Regular (Novolin 70/30), 20 SC QAM Insulin Isophan/Regular (Novolin 70/30), 10 UNITS SC QPM Isosorbide Mononitrate (Imdur Ext Rel), 120 MG PO QAM Levothyroxine Sodium (Synthroid), 125 MCG PO DAILY Metformin Hcl (Glucophage), 1,000 MG PO BID Oxycodone Hcl (Oxycontin), 40 MG PO TID Oxycodone/Acetaminophen 10MG/325MG (Percocet 10MG/325MG), 1 TAB PO TID Polyethylene Glycol 3350 (Miralax), 17 GM PO DAILY Potassium Chloride (Potassium Chloride Er), 20 MEQ PO QAM Ranitidine Hcl (Zantac), 150 MG PO BID Senna (Senokot), 1 TAB PO BID Venlafaxine Hcl (Venlafaxine Extended Rel), 37.5 MG PO DAILY Scheduled PRN Belladonna Alk/Phenobarbital (), 1 TAB PO TID PRN for Constipation Bisacodyl (Dulcolax), 2 TAB PO UD PRN for NO BM FOR 2 DAYS Dextromethorphan-Guaifenesin (Mucinex Dm), 1 TAB PO BID PRN for CONGESTION Fluocinonide (Lidex 0.05% Oint), 1 APPLN TP BID PRN for SKIN IRRITATION Fluticasone Propionate (Nasal) (Flonase Allergy Relief), 2 SPRAYS HENRY DAILY PRN for RHINITIS Ipratropium-Albuterol (Combivent Respimat), 1 PUFFS INH QID PRN for Wheezing Ipratropium-Albuterol (Duoneb), 1 TREATMENT INH Q4H PRN for Wheezing Magnesium Hydroxide (Milk Of Magnesia), 30 ML PO DAILY PRN for Constipation Nitroglycerin (Nitrostat), 0.4 MG UT UD PRN for Chest Pain Nystatin (Topical) (Nystop), 100,000 UNITS TOP TID PRN for RASH Oxycodone/Acetaminophen 10MG/325MG (Percocet 10MG/325MG), 1 TAB PO UD PRN for Pain Family History History of Suicide: No Psychiatric History: Yes (depression in parents) Alcohol Use Alcohol Use In Past 12 Months: No Smoking Use Smoking Status: Never Smoker Substance History none Personal History Lives in: [place] Education: graduated from high school Work History: retired Relationship History: (55 years) Children: 2 Spiritual Affiliation: "used to be" Legal History: none Psychological Trauma History: Emotional Abuse Review of Systems unreliable lead pharmacy technician Examination Vital Signs Vital Signs Past 12 Hours Date Time Temp Pulse Resp B/P (MAP) Pulse Ox O2 Delivery O2 Flow Rate FiO2 04/30/17 15:54 36.6 70 16 101/65 (77) 96 Room Air 04/30/17 11:59 37.4 81 19 156/71 (99) 93 Room Air 04/30/17 11:14 72 16 96 Nasal Cannula 3.0 04/30/17 08:31 77 16 96 Nasal Cannula 3.0 04/30/17 07:58 37.3 76 19 151/70 (97) 94 Nasal Cannula 2.0 Laboratory Results Last 24 Hours Test 04/30/17 00:28 04/30/17 00:32 04/30/17 00:40 04/30/17 01:28 Prothrombin Time 10.9 SECONDS Prothromb Time International Ratio 1.0 Sodium Level 136 mmol/L Potassium Level mmol/L 4.1 mmol/L Chloride Level 101 mmol/L Carbon Dioxide Level 28 mmol/L Anion Gap 7.0 mmol/L Blood Urea Nitrogen 17 mg/dl Creatinine 0.84 mg/dl Est Creatinine Clear Calc Drug Dose 53.0 ml/min Estimated GFR () 74.5 Estimated GFR (Non- 64.3 BUN/Creatinine Ratio 20.0 Random Glucose 218 mg/dl Calcium Level 8.9 mg/dl Magnesium Level mg/dl 1.4 mg/dl Total Bilirubin 0.4 mg/dl Aspartate Amino Transf (AST/SGOT) U/L 16 U/L Alanine Aminotransferase (ALT/SGPT) 20 U/L 21 U/L Alkaline Phosphatase 73 U/L Troponin I 0.629 ng/ml Pro-B-Type Natriuretic Peptide 2198 pg/ml Total Protein 7.2 gm/dl Albumin 2.8 gm/dl Globulin 4.4 gm/dl Albumin/Globulin Ratio 0.6 Carbamazepine (Tegretol) Level < 0.5 mcg/ml Bedside Lactic Acid Venous 1.04 mmol/L Influenza Type A Antigen Neg for Influ A Influenza Type B Antigen Neg for Influ B Test 04/30/17 01:48 04/30/17 02:40 04/30/17 06:43 04/30/17 07:09 Urine Color YELLOW Urine Appearance CLEAR Urine pH 5.5 Urine Specific [place] 1.022 Urine Protein 1+ Urine Glucose (UA) 2+ Urine Ketones 1+ Urine Occult Blood NEG Urine Nitrite NEG Urine Bilirubin NEG Urine Urobilinogen NEG Urine Leukocyte Esterase TRACE Urine WBC (Auto) 5-10 /hpf Urine RBC (Auto) 0-4 /hpf Urine Hyaline Casts (Auto) 1-5 /lpf Urine Epithelial Cells (Auto) 20-30 /lpf Urine Bacteria (Auto) NEG White Blood Count 6.85 K/uL 6.86 K/uL Red Blood Count 3.20 M/uL 3.32 M/uL Hemoglobin 10.2 g/dL 10.6 g/dL Hematocrit 32.3 % 33.4 % Mean Corpuscular Volume 100.9 fL 100.6 fL Mean Corpuscular Hemoglobin 31.9 pg 31.9 pg Mean Corpuscular Hemoglobin Concent 31.6 g/dl 31.7 g/dl Platelet Count 224 K/uL 217 K/uL Mean Platelet Volume 9.3 fL 9.5 fL Neutrophils (%) (Auto) 49.1 % 49.1 % Lymphocytes (%) (Auto) 31.4 % 31.2 % Monocytes (%) (Auto) 18.4 % 18.5 % Eosinophils (%) (Auto) 0.7 % 0.7 % Basophils (%) (Auto) 0.1 % 0.1 % Neutrophils # (Auto) 3.36 K/uL 3.36 K/uL Lymphocytes # (Auto) 2.15 K/uL 2.14 K/uL Monocytes # (Auto) 1.26 K/uL 1.27 K/uL Eosinophils # (Auto) 0.05 K/uL 0.05 K/uL Basophils # (Auto) 0.01 K/uL 0.01 K/uL RDW Standard Deviation 51.4 fL 51.0 fL RDW Coefficient of Variation 14.0 % 13.9 % Immature Granulocyte % (Auto) 0.3 % 0.4 % Immature Granulocyte # (Auto) 0.02 K/uL 0.03 K/uL Bedside Glucose 244 mg/dl Dohle Bodies 1+ Sodium Level 136 mmol/L Potassium Level 3.8 mmol/L Chloride Level 99 mmol/L Carbon Dioxide Level 31 mmol/L Anion Gap 6.0 mmol/L Blood Urea Nitrogen 14 mg/dl Creatinine 0.68 mg/dl Est Creatinine Clear Calc Drug Dose 61.8 ml/min Estimated GFR () 93.8 Estimated GFR (Non- 80.9 BUN/Creatinine Ratio 19.9 Random Glucose 240 mg/dl Calcium Level 9.2 mg/dl Magnesium Level 2.0 mg/dl Total Bilirubin 0.4 mg/dl Aspartate Amino Transf (AST/SGOT) 13 U/L Alanine Aminotransferase (ALT/SGPT) 18 U/L Alkaline Phosphatase 71 U/L Troponin I 0.469 ng/ml Total Protein 7.2 gm/dl Albumin 2.7 gm/dl Globulin 4.5 gm/dl Albumin/Globulin Ratio 0.6 Procalcitonin < 0.05 ng/ml Test 04/30/17 11:13 04/30/17 12:58 Bedside Glucose 286 mg/dl Activated Partial Thromboplast Time 28.0 SECONDS Partial Thromboplastin Ratio 1.1 Troponin I 0.325 ng/ml Mental Examination During interview pt is: alert and oriented, guarded Appearance: appropriately groomed Eye contact is: good Motor behavior is: psychomotor agitation (with tremor) Speech: other (hyperverbal) Affect: irritable Mood is: irritable Thought process: concrete Thought content: paranoid Suicidal thought are: denied Hallucinations: denies auditory, denies visual Cognition: language grossly intact Intelligence estimated to be: consistent with level of education Insight: impaired Judgement: impaired Impression / Recommendations Impression 81 yo female with a history of depression and anxiety, in personal care due to dementia/age/medical co-morbidities, presented with increase in paranoia and resistance to care in setting of acute pneumonia and possibly exacerbation of underlying cardiac disease. Xanax was held on admission and she is becoming increasingly resistant to care, bordering on agitation. Recommendations case discussed with attending physician and floor nurse as there are differing levels opinion re: how invasive to be with her current care. In my opinion, patient doesn't fully understand risks/benefits re: refusal of treatment. She is paranoid about finances and is citing god but daughter states she hasn't been catholic as of late. It is unclear how much of her current MS change is related to worsening of her depression/anxiety, delirium, or dementia. Recently she has been hypoxic and not caring for self well. POA reportedly supports medically recommended testing and IV heparin, etc. I suspect that some degree of Xanax withdrawal may also be contributing to her presentation and feel that resuming it with low dose Haldol 0.5 mg prn is appropriate and would likely result in patient being more receptive to appropriate medical intervention. Her nurse expressed concerns about level of hold/restraint that may be necessary to administer medically necessary treatment. Reviewed her concerns with Dr. Herandez. Patient is not actively attempting to leave the hospital and is currently allowing girls swimming coach with IV site intact. If unwilling to take PO benzo, haldol, I do feel that IV or IM is appropriate given apparent delirium component. I did leave a 302 petitioning statement on the chart and directed service on how to proceed to warrant if needed. I do not see an acute need for 2 antidepressants, Effexor is low dose and will hold for now.
[2017-04-30] MEDS ORDERED: OPTIRAY 320 IV PRN (20:45)
--- NOTE | 2017-04-30 20:59 | DIAGNOSTIC IMAGING REPORT ---
CHEST CTA for PULMONARY ARTERIES CT DOSE: 696.36 mGy.cm HISTORY: Abnormal chest x-ray. Increased PA pressure. Cough. Short of breath. TECHNIQUE: Multiaxial CT images of the chest were performed following the intravenous administration of contrast to evaluate the pulmonary arteries. Maximal intensity projection images were also obtained. A dose lowering technique was utilized adhering to the principles of ALARA. COMPARISON STUDY: Chest 04/30/2017. FINDINGS: Moderate calcified plaque within the normal caliber thoracic aorta. No evidence for aortic dissection. Poststernotomy changes. The heart is mildly enlarged. No pleural or pericardial effusions. Mild dilatation of the main pulmonary artery measuring 3.5 cm in diameter. This is consistent with pulmonary arterial hypertension. Motion artifact results in nondiagnostic evaluation of the right middle lobe and right lower lobe segmental and subsegmental pulmonary arteries as well as the majority of the right upper lobe segmental/subsegmental pulmonary arteries. There is also nondiagnostic evaluation of the lingular and left lower lobe segmental pulmonary arteries due to motion artifact. Remaining pulmonary arteries show no filling defects to suggest pulmonary embolus. The visualized liver and spleen are unremarkable. Bilateral adrenal gland nodular thickening. Mild mediastinal lymphadenopathy. Old left humeral neck deformity. No acute fractures within the visualized osseous structures. No pneumothorax. Bilateral lower lobe bronchial wall thickening. Bilateral lower lobe linear densities. Focal wedge-shaped consolidation within the right upper lobe posteriorly with surrounding small patchy densities. This favors a pneumonia. IMPRESSION: 1. Suboptimal evaluation of the distal pulmonary arteries as described above due to the motion artifact. However, no evidence for pulmonary embolus. 2. Focal consolidation within the right upper lobe posteriorly. This likely represents a pneumonia. Recommend one month chest x-ray follow-up to ensure resolution. 3. Mild pulmonary arterial hypertension. 4. Bilateral lateral lower lobe linear densities. This favors atelectasis but may also represent a pneumonia. 5. Additional findings as described above. Electronically signed by: Luis Manuel Napoles M.D. 04/30/2017 8:57 PM Dictated Date/Time: 04/30/2017 8:45 PM
[2017-05-01] VITALS (13 sets, daily range): BP systolic 127–180; BP diastolic 65–81; PULSE 65–81; TEMP 36.5–37.3; O2SAT 93–97
[2017-05-01] MEDS ORDERED: INSULIN ASPART 100 UNITS/ML 3 ML PEN SC ONE (01:00)
[2017-05-01] MEDS: LEVOTHYROXINE 125 MCG TAB PO SCH (05:33)
[2017-05-01] MEDS: OXYCODONE HCL 40 MG TABCR (OXYCONTIN) PO SCH ×2 (05:34→17:35)
[2017-05-01 06:30] LABS: PTT PATIENT 27.1 SECONDS (21.0-31.0)
[2017-05-01] MEDS: ALBUT/IPRATROP 3MG/0.5MG NEB 3 ML VIAL INH SCH ×3 (06:59→14:33)
[2017-05-01 07:11] LABS: HEMOGLOBIN A1C 8.3 % (4.5-5.6)
[2017-05-01] MEDS ORDERED: INSULIN HUMAN NPH SC SCH (07:30)
[2017-05-01] MEDS: INSULIN ASPART 100 UNITS/ML 3 ML PEN SC SCH ×4 (08:27→20:56)
[2017-05-01] MEDS: INSULIN HUMAN NPH SC SCH ×2 (08:28→17:10)
[2017-05-01] MEDS: POTASSIUM CHLORIDE 10 MEQ TABCR PO SCH (08:33)
[2017-05-01] MEDS: DOCUSATE SODIUM 100 MG CAP PO SCH ×2 (08:33→20:55)
[2017-05-01] MEDS: LEVOFLOXACIN / D5W 500 MG in PREMIXED IN D5W 100 ML IV SCH (08:33)
[2017-05-01] MEDS: FUROSEMIDE 20 MG TAB PO SCH ×2 (08:34→17:06)
[2017-05-01] MEDS: DILTIAZEM HCL 180 MG CAPCR PO SCH (08:34)
[2017-05-01] MEDS: ISOSORBIDE MONONITRATE 60 MG TABCR PO SCH (08:34)
[2017-05-01] MEDS: CLOPIDOGREL BISULFATE 75 MG TAB PO SCH (08:35)
[2017-05-01] MEDS: ESCITALOPRAM OXALATE 20 MG TAB PO SCH (08:35)
[2017-05-01] MEDS: RANITIDINE HCL 150 MG TAB PO SCH ×2 (08:35→20:55)
[2017-05-01] MEDS: SENNA 8.6 MG TAB PO SCH ×2 (08:35→20:56)
[2017-05-01] MEDS: CALCIUM 600MG + VIT D 400 IU TAB PO SCH ×2 (08:35→20:56)
[2017-05-01] MEDS: ASPIRIN 81 MG ECTAB PO SCH (08:35)
[2017-05-01] MEDS: ALPRAZOLAM 0.25 MG TAB PO SCH ×3 (08:37→20:55)
--- NOTE | 2017-05-01 10:22 | Clinical Documentation Query ---
KRISHAN Huffman : CLINICAL DOCUMENTATION QUERIES QUERY 1 OF 2 Patient is an 81 year old female admitted with an altered mental status in the setting of pneumonia and associated hypoxia. Treatment of the underlying infection and hypoxia has resulted in improvement in mental status. H&P included documentation of encephalopathy. This was not subsequently continued and is at risk for not being captured by the continuous process machine operator as it is in the record only on this one occasion. As appropriate, consider documentation of this condition as resolved. In your clinical opinion is this patient being managed for: ( ) Encephalopathy, resolved ( ) Not Agree ( ) Other explanation of clinical findings (Please Explain) ( ) Unable to determine (Please Define) ( ) Need to Discuss The medical record reflects the following clinical findings, treatment, and risk factors. QUERY 2 OF 2 H&P also noted the possibility of NSTEMI in the setting of demand ischemia in a patient with known multivessel ASCVD with CABG, PCI with intracoronary stenting on numerous occasions. Cardiology documentation included "Initial assessment does not suggest acute ischemic origin, though demand ischemia not excluded, especially in the setting of acute hypoxia." As appropriate, consider capture of this diagnosis as below or state that it has been ruled out. Thank you. In your clinical opinion is this patient being managed for: ( ) Type 2 NSTEMI secondary to hypoxia. ( ) Not Agree ( ) Other explanation of clinical findings (Please Explain) ( ) Unable to determine (Please Define) ( ) Need to Discuss The medical record reflects the following clinical findings, treatment, and risk factors. Clinical Indicators: As above. Troponin 0.629 ng/ml on admission. Treatment: Telemetry, cardiology consultation, antibiotics, supplemental Oxygen, serial EKG's, echo, cardiac enzymes Risk Factors: Age, CAD, infection Please clarify and document your clinical opinion in the progress notes and discharge summary. Terms such as "probable", "suspected", "likely", "questionable", "possible", or "still to be ruled out" are acceptable. IF IN AGREEMENT, YOU MUST DOCUMENT ABOVE DIAGNOSTIC STATEMENT IN DAILY PROGRESS NOTES AND DISCHARGE SUMMARY. This document is not part of the patient's record. Thank You, Ben Menchaca, RN [phone]
--- NOTE | 2017-05-01 10:32 | Pharmacy Progress Note ---
Pharmacy Glycemic Short Note 2 Date of Service May 01, 2017. OUTPATIENT ANTIDIABETIC REGIMEN: * Novolin 70/30 pre-mixed insulin * 20 units in the morning with breakfast * 10 units in the evening with dinner ASSESSMENT: * 81yo T2DM female with presumed adequate outpatient control per recent A1c OF 8.3% ON 05/01/17 * Outpatient regimen is premixed basal/prandial insulin of Novolin 70/30 mix insulin. * Pre-mixed insulin is difficult to titrate since it is already in a fixed distribution of basal:prandial insulin. Continuing pre-mixed insulin for admission typically lead to hypoglycemia d/t changing PO status but rapid acting insulin is unable to be held. * Home regimen will be held for admission per pharmacy consult. Will utilize recommended regimen of SQ basal bolus insulin regimen with NPH as basal insulin + NovoLog per CF+CR. * 04/30/17: Started with stressed outpatient dosing for sustained hyperglycemia and titrate based on BSG trends * 05/01/17: Patient has received 57 units of insulin over the past 24hrs * 30 units of basal * 27 units of prandial/correctional * AM fasting BSG is in goal range this morning at 132 mg/dl. Will continue 30 units of basal insulin split BID with NPH * Continue CF/CR based on total daily dose of 60 units/day PLAN FOR INPATIENT GLYCEMIC CONTROL: * Hold outpatient pre-mixed insulin * Basal insulin * NPH 15 units SQ BID * Bolus insulin * NovoLog per scale ACHS or Q6hrs while NPO * Goal Range: Low 130 mg/dL - High 160 mg/dL * Correction Factor: 25 mg/dL/unit * Nutritional / Prandial insulin per carb ratio of 1 unit per 9 grams CHO consumed PLAN FOR DISCHARGE: * A1c indicates adequate outpatient control. No changes needed to outpatient regimen.
--- NOTE | 2017-05-01 10:51 | Cardiology Follow-Up ---
Subjective General Date of Service: May 01, 2017. Chief Complaint: SOB Pt evaluation today including: conversation w/ patient, physical exam, chart review, lab review, review of studies, review of inpatient medication list History of Present Illness Patient feeling better this AM. Cough improving. SOB improving. No fevers. No chills. No orthopnea, PND or edema. No chest pain. Allergies Coded Allergies: Cefdinir (Verified Allergy, Unknown, EDDEMA FACE,LIPS,TONGUE, 10/26/16) Meperidine (Verified Allergy, Unknown, UNKNOWN, 04/30/17) Pioglitazone (Verified Allergy, Unknown, EDEMA, 10/26/16) Rosiglitazone (Verified Allergy, Unknown, EDEMA, 10/26/16) Sodium Benzoate (Verified Allergy, Unknown, EDDEMA FACE,LIPS,TONGUE, ) Beta Adrenergic Blockers (Verified Adverse Reaction, Unknown, UNKNOWN, ) Lorazepam (Verified Adverse Reaction, Unknown, UNKNOWN, 10/26/16) Social History Smoking Status: Never Smoker Hx Tobacco Use In Past Year?: No Hx Alcohol Use - Type And Amou: No Hx Substance Use - Type And Am: No Problem List Medical Problems: (1) Abdominal pain Status: Acute (2) Altered mental status Status: Acute (3) Displaced bimalleolar fracture of left ankle Status: Acute (4) Elevated troponin Status: Acute (5) Fall Status: Acute (6) Fall Status: Acute (7) Fracture of first metatarsal bone Status: Acute (8) Hyperglycemia Status: Acute (9) Hypomagnesemia Status: Acute (10) Hypoxia Status: Acute (11) Ovarian mass Status: Acute (12) Pneumonia Status: Acute Review of Systems Respiratory: + cough, No sputum, No shortness of breath, No hemoptysis Cardiac: No chest pain, No orthopnea, No PND, No edema, No palpitations Physical Exam Vital Signs Last Vital Signs Documentation Date Time Temp Pulse Resp B/P (MAP) Pulse Ox O2 Delivery O2 Flow Rate FiO2 05/01/17 08:05 Nasal Cannula 2.0 05/01/17 07:54 37.3 74 19 180/74 (109) 94 Physical Exam Constitutional: General Apperance: overweight Level of Distress: NAD Psychiatric: Mental Status: active & alert Orientation: to time, to place, to person Head: normocephalic Eyes: Pupils: PERRLA Neck: supple Lungs: Auscultation: deminished air movement, expiratory wheezing, rhonchi Cardiovascular: Heart Auscultation: RRR, no murmurs Abdomen: Bowel Sounds: normal Inspection & Palpation: soft, non-distended Extremities: no edema Assessment and Plan Assessment and Plan ASSESSMENT and PLAN 1. Acute respiratory failure with hypoxia, secondary to right upper lobe pneumonia confirmed on CT scan. No evidence of PE. Continue Antibiotics. Clinically improving. 2. Ischemic heart disease, mildly elevated troponin, likely demand ischemia in setting of acute hypoxia. Preserved LV function. No anginal symptoms 3. New RBBB 4. Hypertension - has history of intolerance to multiple medications. Situational component. Monitor. Continue home medications. 6. Mental status changes - noted on admission. Appears back at baseline this morning. Patient cooperative and agreeable to therapies. Case discussed with Dr. Nunez. Will follow. Patient was seen and examined. Assessment and plan as above. Pulmonary status improving, cough slightly more productive but patient more comfortable Raul Nunez MD Laboratory Results Last 24 Hours Test 04/30/17 11:13 04/30/17 12:58 04/30/17 16:21 04/30/17 20:37 Bedside Glucose 286 mg/dl 262 mg/dl 302 mg/dl Activated Partial Thromboplast Time 28.0 SECONDS Partial Thromboplastin Ratio 1.1 Troponin I 0.325 ng/ml Test 05/01/17 01:07 05/01/17 05:14 05/01/17 06:27 Bedside Glucose 188 mg/dl 132 mg/dl Activated Partial Thromboplast Time 27.1 SECONDS Partial Thromboplastin Ratio 1.0 Estimated Average Glucose 192 mg/dl Hemoglobin A1c 8.3 % Thyroid Stimulating Hormone (TSH) 1.090 uIu/ml
[2017-05-01 14:24] LABS: BASO % 0.2 %; BASO ABS # 0.02 K/uL (0-0.2); EOS % 0.8 %; EOS ABS # 0.07 K/uL (0-0.5); HEMATOCRIT 33.7 % (37-47); HEMOGLOBIN 10.6 g/dL (12.0-16.0); IG# 0.06 K/uL (0.00-0.02); LYMPH % 27.9 %; LYMPH ABS # 2.34 K/uL (1.2-3.4); MEAN CELL VOLUME 101.2 fL (80-100); MEAN CORPUSCULAR HEMOGLOBIN 31.8 pg (25-34); MEAN CORPUSCULAR HGB CONC 31.5 g/dl (32-36); MEAN PLATELET VOLUME 9.4 fL (7.4-10.4); MONO % 15.6 %; MONO ABS # 1.31 K/uL (0.11-0.59); NEUT % 54.8 %; NEUT ABS # 4.58 K/uL (1.4-6.5); PLATELET COUNT 256 K/uL (130-400); RED CELL DISTRIBUTION WIDTH SD 51.3 fL (36.4-46.3); WHITE BLOOD COUNT 8.38 K/uL (4.8-10.8)
[2017-05-01 14:45] LABS: CALCIUM 10.5 mg/dl (8.5-10.1); CREATININE 0.86 mg/dl (0.60-1.20); POTASSIUM 4.1 mmol/L (3.5-5.1)
[2017-05-01] MEDS: LEVALBUTEROL 0.63MG/3 ML NEB INH SCH (19:10)
--- NOTE | 2017-05-01 19:37 | Progress Note ---
Medicine Progress Note Date & Time of Visit: May 01, 2017 at 19:32. Subjective seen resting in bed, comfortable, alert, oriented x 3, pleasant states she feels improved compared to yesterday cough is less no dyspnea denies other symptoms Objective Last 8 Hrs Date Time Temp Pulse Resp B/P (MAP) Pulse Ox O2 Delivery O2 Flow Rate FiO2 05/01/17 19:11 78 16 96 Nasal Cannula 2.0 05/01/17 16:25 95 Nasal Cannula 2.0 05/01/17 15:54 36.5 71 18 154/69 (97) 95 Nasal Cannula 2.0 05/01/17 14:33 73 16 93 Nasal Cannula 2.0 05/01/17 12:00 94 Nasal Cannula 2.0 Physical Exam: General- oriented x 3, not in distress, speaks in sentences with no effort Eyes- EOMI, anicteric Neck- supple, no JVD Lungs- clear breaths sounds bilaterally, no rales/wheezes Heart- regular rhythm; no murmur, normal rate Abdomen- normal bowel sounds, soft, nontender Extremities- no pretibial edema, no calf tenderness Neuro- alert, oriented x 3; no gross focal deficits Skin- warm & dry Laboratory Results: Last 24 Hours Test 04/30/17 20:37 05/01/17 01:07 05/01/17 05:14 05/01/17 06:27 Bedside Glucose 302 mg/dl 188 mg/dl 132 mg/dl Activated Partial Thromboplast Time 27.1 SECONDS Partial Thromboplastin Ratio 1.0 Estimated Average Glucose 192 mg/dl Hemoglobin A1c 8.3 % Thyroid Stimulating Hormone (TSH) 1.090 uIu/ml Test 05/01/17 11:06 05/01/17 14:04 05/01/17 16:16 Bedside Glucose 267 mg/dl 213 mg/dl White Blood Count 8.38 K/uL Red Blood Count 3.33 M/uL Hemoglobin 10.6 g/dL Hematocrit 33.7 % Mean Corpuscular Volume 101.2 fL Mean Corpuscular Hemoglobin 31.8 pg Mean Corpuscular Hemoglobin Concent 31.5 g/dl Platelet Count 256 K/uL Mean Platelet Volume 9.4 fL Neutrophils (%) (Auto) 54.8 % Lymphocytes (%) (Auto) 27.9 % Monocytes (%) (Auto) 15.6 % Eosinophils (%) (Auto) 0.8 % Basophils (%) (Auto) 0.2 % Neutrophils # (Auto) 4.58 K/uL Lymphocytes # (Auto) 2.34 K/uL Monocytes # (Auto) 1.31 K/uL Eosinophils # (Auto) 0.07 K/uL Basophils # (Auto) 0.02 K/uL RDW Standard Deviation 51.3 fL RDW Coefficient of Variation 14.0 % Immature Granulocyte % (Auto) 0.7 % Immature Granulocyte # (Auto) 0.06 K/uL Sodium Level 136 mmol/L Potassium Level 4.1 mmol/L Chloride Level 98 mmol/L Carbon Dioxide Level 30 mmol/L Anion Gap 8.0 mmol/L Blood Urea Nitrogen 13 mg/dl Creatinine 0.86 mg/dl Est Creatinine Clear Calc Drug Dose 48.5 ml/min Estimated GFR () 72.4 Estimated GFR (Non- 62.5 BUN/Creatinine Ratio 14.6 Random Glucose 218 mg/dl Calcium Level 10.5 mg/dl Assessment & Plan 81 year old female with history of CAD, DM 2, HTN, Asthma, presenting with shortness of breath. PNEUMONIA, RIGHT MIDDLE LOBE PULMONARY EMBOLISM, ruled out - sputum culture: pending blood culture: pending - speech therapy consulted - empiric Levaquin Day 2 nebs q6h improving wean off oxygen accordingly -- RN to continue discussion with patient will monitor - Speech Therapy recommendations: Recommendations * 1. Dental soft diet 2. Aspiration precautions, straws OK. Fully upright for meals and for 30 minutes after meals. 3. Alternate solids and liquids as needed. 4. Speech will monitor for tolerance. MILD TROPONIN ELEVATION - history of CAD, STENT - 0.6 to 0.3 to o.2 - EKG: no signs of acute ischemia - echo: -- Conclusions -- * The left ventricle is normal in size. * There is normal left ventricular wall thickness. * No regional wall motion abnormalities noted. * Ejection Fraction = 55-60%. * Grade I diastolic dysfunction, (abnormal relaxation pattern). * Aortic valve sclerosis moderate, without significant aortic valvular stenosis. * There is mild tricuspid regurgitation. * Right ventricular systolic pressure is moderately elevated at 40-50mmHg. -- continue Aspirin, Plavix, Imdur, Dilzem Cardiology consulted DM TYPE 2 -- on Metformin, hold while inpatient on Insulin 70/30, ISS -- Pharmacy consulted HTN -- continue Imdur, Dilzem, Lasix APPARENT CHANGE IN MENTAL STATUS CHART HISTORY OF DEMENTIA without BEHAVIORAL DISTURBANCE -- Psych consulted Xanax TID resumed Lexapro resumed Effexor discontinue -- mental status much improved DVT prophylaxis -- heparin DNR Disposition resident of [facility], anticipate return to the [facility] [place] tomorrow Current Inpatient Medications: Current Inpatient Medications Medications (Trade) Dose Ordered Sig/Emanuel Route Start Time Stop Time Status Last Admin Dose Admin Insulin Aspart (novoLOG ASPART) SLIDING SCALE If C... ACHS SC 04/30/17 07:00 05/30/17 06:59 05/01/17 17:09 8 UNITS Glucose (Glucose Chew Tab) 4-8 Tablets 4 Tabl... UD PRN PO 04/30/17 03:30 05/30/17 03:29 Dextrose (Dextrose 50% 50ML Syringe) 25-50ML OF 50% DW IV FOR... UD PRN IV 04/30/17 03:30 05/30/17 03:29 Glucagon (Glucagon Inj) 1 mg UD PRN SQ 04/30/17 03:30 05/30/17 03:29 Aspirin (Ecotrin Tab) 81 mg QAM PO 04/30/17 09:00 05/30/17 08:59 05/01/17 08:35 81 MG Bisacodyl (Dulcolax Tab) 10 mg UD PRN PO 04/30/17 03:30 05/30/17 03:29 Clopidogrel Bisulfate (plAVix TAB) 75 mg DAILY PO 04/30/17 09:00 05/30/17 08:59 05/01/17 08:35 75 MG Diltiazem HCl (Cardizem Cd Cap) 180 mg QAM PO 04/30/17 09:00 05/30/17 08:59 05/01/17 08:34 180 MG Docusate Sodium (coLACE CAP) 100 mg BID PO 04/30/17 09:00 05/30/17 08:59 05/01/17 08:33 100 MG Escitalopram Oxalate (Lexapro Tab) 20 mg DAILY PO 04/30/17 09:00 05/30/17 08:59 05/01/17 08:35 20 MG Fluticasone Propionate (Flonase Nasal [place]) 2 sprays DAILY PRN HENRY 04/30/17 03:30 05/30/17 03:29 Albuterol/ Ipratropium (Combivent Respimat Inh) 1 puffs QID PRN INH 04/30/17 03:30 05/30/17 03:29 Isosorbide Mononitrate (Imdur Ext Rel Tab) 120 mg QAM PO 04/30/17 09:00 05/30/17 08:59 05/01/17 08:34 120 MG Levothyroxine Sodium (Synthroid Tab) 125 mcg DAILYBB PO 04/30/17 06:00 05/30/17 05:59 05/01/17 05:33 125 MCG Magnesium Hydroxide (Milk Of Magnesia Susp) 30 ml DAILY PRN PO 04/30/17 03:30 05/30/17 03:29 Nitroglycerin (Nitrostat Tab) 0.4 mg UD PRN UT 04/30/17 03:30 05/30/17 03:29 Ranitidine HCl (zANTac TAB) 150 mg BID PO 04/30/17 09:00 05/30/17 08:59 05/01/17 08:35 150 MG Senna (Senokot Tab) 8.6 mg BID PO 04/30/17 09:00 05/30/17 08:59 05/01/17 08:35 8.6 MG Calcium/Vitamin D (Caltrate Plus Tab) 1 tab BID PO 04/30/17 09:00 05/30/17 08:59 05/01/17 08:35 1 TAB Potassium Chloride (Klor-Con M10) 20 meq QAM PO 04/30/17 09:00 05/30/17 08:59 05/01/17 08:33 20 MEQ Furosemide (Lasix Tab) 10 mg BID17 PO 04/30/17 09:00 05/30/17 08:59 05/01/17 17:06 10 MG Oxycodone HCl (Oxycontin Tab) 40 mg Q12H PO 04/30/17 05:30 05/14/17 05:29 05/01/17 17:35 40 MG Ondansetron HCl (Zofran Inj) 4 mg Q6H PRN IV 04/30/17 08:15 05/30/17 08:14 Miscellaneous Information (Consult Glycemic Management Pharmacy) 1 ea UD PRN N/A 04/30/17 13:00 05/30/17 12:59 Heparin Sodium/ Dextrose 500 ml @ 23 mls/hr [id number] PRN IV 04/30/17 13:00 05/30/17 12:59 Alprazolam (Xanax Tab) 0.25 mg TID PO 04/30/17 16:15 05/30/17 16:14 05/01/17 15:10 0.25 MG Haloperidol (Haldol Tab) 0.5 mg Q6 PRN PO 04/30/17 16:15 05/30/17 16:14 Levofloxacin 500 mg/Prmx 100 ml @ 100 mls/hr Q24H IV 05/01/17 08:00 05/07/17 07:59 05/01/17 08:33 100 MLS/HR Ioversol (Optiray 320) 104 ml UD PRN IV 04/30/17 20:45 05/04/17 20:44 Insulin Human NPH (novoLIN-N NPH) 15 units BIDM SC 05/01/17 07:30 05/31/17 07:29 05/01/17 17:10 15 UNITS Levalbuterol (Xopenex 0.63 Mg/ 3 Ml Neb) 0.63 mg Q6RWA INH 05/01/17 20:00 05/31/17 19:59 05/01/17 19:10 0.63 MG
[2017-05-02] VITALS (12 sets, daily range): BP systolic 133–181; BP diastolic 70–79; PULSE 72–85; TEMP 36.8–37.4; O2SAT 81–98; Ht 149.9 cm; Wt 91.0 kg
[2017-05-02] MEDS: OXYCODONE HCL 40 MG TABCR (OXYCONTIN) PO SCH ×2 (05:52→18:14)
[2017-05-02] MEDS: LEVOTHYROXINE 125 MCG TAB PO SCH (05:53)
[2017-05-02 05:56] LABS: HEMATOCRIT 32.5 % (37-47); HEMOGLOBIN 10.1 g/dL (12.0-16.0); MEAN CELL VOLUME 100.9 fL (80-100); MEAN CORPUSCULAR HEMOGLOBIN 31.4 pg (25-34); MEAN CORPUSCULAR HGB CONC 31.1 g/dl (32-36); MEAN PLATELET VOLUME 9.1 fL (7.4-10.4); PLATELET COUNT 236 K/uL (130-400); RED CELL DISTRIBUTION WIDTH SD 51.1 fL (36.4-46.3); WHITE BLOOD COUNT 9.49 K/uL (4.8-10.8)
[2017-05-02 06:14] LABS: PTT PATIENT 24.8 SECONDS (21.0-31.0)
[2017-05-02] MEDS: LEVALBUTEROL 0.63MG/3 ML NEB INH SCH ×3 (07:05→20:06)
[2017-05-02] MEDS: LEVOFLOXACIN / D5W 500 MG in PREMIXED IN D5W 100 ML IV SCH (08:02)
[2017-05-02] MEDS: RANITIDINE HCL 150 MG TAB PO SCH ×2 (08:03→20:37)
[2017-05-02] MEDS: POTASSIUM CHLORIDE 10 MEQ TABCR PO SCH (08:03)
[2017-05-02] MEDS: SENNA 8.6 MG TAB PO SCH ×2 (08:03→20:37)
[2017-05-02] MEDS: DOCUSATE SODIUM 100 MG CAP PO SCH ×2 (08:03→20:39)
[2017-05-02] MEDS: CLOPIDOGREL BISULFATE 75 MG TAB PO SCH (08:03)
[2017-05-02] MEDS: ASPIRIN 81 MG ECTAB PO SCH (08:03)
[2017-05-02] MEDS: ISOSORBIDE MONONITRATE 60 MG TABCR PO SCH (08:04)
[2017-05-02] MEDS: FUROSEMIDE 20 MG TAB PO SCH ×2 (08:04→18:14)
[2017-05-02] MEDS: DILTIAZEM HCL 180 MG CAPCR PO SCH (08:04)
[2017-05-02] MEDS: ESCITALOPRAM OXALATE 20 MG TAB PO SCH (08:04)
[2017-05-02] MEDS: CALCIUM 600MG + VIT D 400 IU TAB PO SCH ×2 (08:04→20:37)
[2017-05-02] MEDS: INSULIN HUMAN NPH SC SCH ×2 (08:06→18:20)
[2017-05-02] MEDS: INSULIN ASPART 100 UNITS/ML 3 ML PEN SC SCH ×4 (08:06→20:46)
[2017-05-02] MEDS: ALPRAZOLAM 0.25 MG TAB PO SCH ×3 (08:14→20:38)
--- NOTE | 2017-05-02 09:54 | Pharmacy Progress Note ---
Pharmacy Glycemic Short Note 2 Date of Service May 02, 2017. OUTPATIENT ANTIDIABETIC REGIMEN: * Novolin 70/30 pre-mixed insulin * 20 units in the morning with breakfast * 10 units in the evening with dinner ASSESSMENT: * 81yo T2DM female with presumed adequate outpatient control per recent A1c of 8.3% on 05/01/17 * Outpatient regimen is premixed basal/prandial insulin of Novolin 70/30 mix insulin. * Pre-mixed insulin is difficult to titrate since it is already in a fixed distribution of basal:prandial insulin. Continuing pre-mixed insulin for admission typically lead to hypoglycemia d/t changing PO status but rapid acting insulin is unable to be held. * Home regimen will be held for admission per pharmacy consult. Will utilize recommended regimen of SQ basal bolus insulin regimen with NPH as basal insulin + NovoLog per CF+CR. * 05/02/17: * Fasting BSG 118 mg/dL this AM - no change to NPH necessary * Prandial BSGs all >180 mg/dL - continue to tighten CF/CR to obtain in goal BSGS PLAN FOR INPATIENT GLYCEMIC CONTROL: * Hold outpatient pre-mixed insulin * Basal insulin * NPH 15 units SQ BID * Bolus insulin * NovoLog per scale ACHS or Q6hrs while NPO * Goal Range: Low 130 mg/dL - High 160 mg/dL * Correction Factor: 20 mg/dL/unit * Nutritional / Prandial insulin per carb ratio of 1 unit per 7 grams CHO consumed PLAN FOR DISCHARGE: * A1c indicates adequate outpatient control. No changes needed to outpatient regimen.
--- NOTE | 2017-05-02 10:42 | Progress Note ---
Medicine Progress Note Date & Time of Visit: May 02, 2017 at 10:31. Subjective patient seen resting in bed, comfortable in good spirits, oriented x 3 states she feels much better no dyspnea cough is less no chest pain no other symptoms states she is ready and would like to be discharged today Objective Last 8 Hrs Date Time Temp Pulse Resp B/P (MAP) Pulse Ox O2 Delivery O2 Flow Rate FiO2 05/02/17 10:09 85 93 05/02/17 08:34 81 Room Air 05/02/17 08:00 Nasal Cannula 2.0 05/02/17 07:14 36.8 77 20 171/73 (105) 94 Nasal Cannula 2.0 05/02/17 07:05 76 16 94 Nasal Cannula 2.0 05/02/17 04:00 Nasal Cannula 2.0 05/02/17 03:45 37.0 72 20 181/79 (113) 98 Nasal Cannula 2.0 Physical Exam: General- oriented x 3, not in distress, speaks in sentences with no effort Eyes- anicteric Neck- no JVD Lungs- clear breaths sounds , no rales/wheezes bilaterally Heart- regular rhythm; no murmur, normal rate Abdomen- normal bowel sounds, soft, nontender Extremities- no pretibial edema, no calf tenderness Neuro- alert, oriented x 3; no gross focal deficits Skin- warm & dry Laboratory Results: Last 24 Hours Test 05/01/17 11:06 05/01/17 14:04 05/01/17 16:16 05/01/17 19:52 Bedside Glucose 267 mg/dl 213 mg/dl 193 mg/dl White Blood Count 8.38 K/uL Red Blood Count 3.33 M/uL Hemoglobin 10.6 g/dL Hematocrit 33.7 % Mean Corpuscular Volume 101.2 fL Mean Corpuscular Hemoglobin 31.8 pg Mean Corpuscular Hemoglobin Concent 31.5 g/dl Platelet Count 256 K/uL Mean Platelet Volume 9.4 fL Neutrophils (%) (Auto) 54.8 % Lymphocytes (%) (Auto) 27.9 % Monocytes (%) (Auto) 15.6 % Eosinophils (%) (Auto) 0.8 % Basophils (%) (Auto) 0.2 % Neutrophils # (Auto) 4.58 K/uL Lymphocytes # (Auto) 2.34 K/uL Monocytes # (Auto) 1.31 K/uL Eosinophils # (Auto) 0.07 K/uL Basophils # (Auto) 0.02 K/uL RDW Standard Deviation 51.3 fL RDW Coefficient of Variation 14.0 % Immature Granulocyte % (Auto) 0.7 % Immature Granulocyte # (Auto) 0.06 K/uL Sodium Level 136 mmol/L Potassium Level 4.1 mmol/L Chloride Level 98 mmol/L Carbon Dioxide Level 30 mmol/L Anion Gap 8.0 mmol/L Blood Urea Nitrogen 13 mg/dl Creatinine 0.86 mg/dl Est Creatinine Clear Calc Drug Dose 48.5 ml/min Estimated GFR () 72.4 Estimated GFR (Non- 62.5 BUN/Creatinine Ratio 14.6 Random Glucose 218 mg/dl Calcium Level 10.5 mg/dl Test 05/02/17 05:38 05/02/17 06:25 White Blood Count 9.49 K/uL Red Blood Count 3.22 M/uL Hemoglobin 10.1 g/dL Hematocrit 32.5 % Mean Corpuscular Volume 100.9 fL Mean Corpuscular Hemoglobin 31.4 pg Mean Corpuscular Hemoglobin Concent 31.1 g/dl RDW Standard Deviation 51.1 fL RDW Coefficient of Variation 14.0 % Platelet Count 236 K/uL Mean Platelet Volume 9.1 fL Activated Partial Thromboplast Time 24.8 SECONDS Partial Thromboplastin Ratio 1.0 Bedside Glucose 118 mg/dl Assessment & Plan 81 year old female with history of CAD, DM 2, HTN, Asthma, presenting with shortness of breath. ACUTE HYPOXIC RESPIRATORY FAILURE SECONDARY TO PNEUMONIA, RIGHT MIDDLE LOBE - CT chest: IMPRESSION: 1. Suboptimal evaluation of the distal pulmonary arteries as described above due to the motion artifact. However, no evidence for pulmonary embolus. 2. Focal consolidation within the right upper lobe posteriorly. This likely represents a pneumonia. Recommend one month chest x-ray follow-up to ensure resolution. 3. Mild pulmonary arterial hypertension. 4. Bilateral lateral lower lobe linear densities. This favors atelectasis but may also represent a pneumonia. 5. Additional findings as described above. - blood culture: negative - given: Levaquin IV x 3 days Nebs q6h - improved clinically, still requires 2 liters of O2 by NC at all times - discharge on: Levaquin 500mg po daily x 3 days Nebs TID and PRN q4hs Oxygen at 2 liters via nasal cannula at all times wean off oxygen accordingly - Speech Therapy recommendations: Recommendations * 1. Dental soft diet 2. Aspiration precautions, straws OK. Fully upright for meals and for 30 minutes after meals. 3. Alternate solids and liquids as needed. 4. Speech will monitor for tolerance. -- ff up with PCP in 1 week -- repeat CXR in one month to ff up resolution MILD TROPONIN ELEVATION - history of CAD, STENT - 0.6 to 0.3 to o.2 - EKG: no signs of acute ischemia - echo: -- Conclusions -- * The left ventricle is normal in size. * There is normal left ventricular wall thickness. * No regional wall motion abnormalities noted. * Ejection Fraction = 55-60%. * Grade I diastolic dysfunction, (abnormal relaxation pattern). * Aortic valve sclerosis moderate, without significant aortic valvular stenosis. * There is mild tricuspid regurgitation. * Right ventricular systolic pressure is moderately elevated at 40-50mmHg. -- Chef'S Assistant Dr. Nunez troponin elevation likely from demand ischemia -- continue Aspirin, Plavix, Imdur, Diltiazem DM TYPE 2 -- on Metformin on Insulin 70/30 HTN -- continue Imdur, Dilzem, Lasix ACUTE EPISODE OF DELIRIUM CHART HISTORY OF DEMENTIA without BEHAVIORAL DISTURBANCE --occurred on hospital day 1 Psych consulted Xanax TID resumed Lexapro resumed Effexor discontinued -- mental status much improved, alert, oriented x 3, cooperative no recurrence CHRONIC PAIN - to avoid delirium, following changes were made: - Oxycodone long acting changed from TID to BID Percocet discontinued - patient denies pain so far monitor while on above decreased doses POLST FORM UPDATED - per discussion with patient and family, current POLST form not reflective of her wishes- currently states comfort measures only - another POLST form signed which states Limited Interventions DVT prophylaxis -- heparin given DNR Disposition d/c to [facility] ff up with PCP in 3-5 days Current Inpatient Medications: Current Inpatient Medications Medications (Trade) Dose Ordered Sig/Emanuel Route Start Time Stop Time Status Last Admin Dose Admin Insulin Aspart (novoLOG ASPART) SLIDING SCALE If C... ACHS SC 04/30/17 07:00 05/30/17 06:59 05/02/17 08:06 3 UNITS Glucose (Glucose Chew Tab) 4-8 Tablets 4 Tabl... UD PRN PO 04/30/17 03:30 05/30/17 03:29 Dextrose (Dextrose 50% 50ML Syringe) 25-50ML OF 50% DW IV FOR... UD PRN IV 04/30/17 03:30 05/30/17 03:29 Glucagon (Glucagon Inj) 1 mg UD PRN SQ 04/30/17 03:30 05/30/17 03:29 Aspirin (Ecotrin Tab) 81 mg QAM PO 04/30/17 09:00 05/30/17 08:59 05/02/17 08:03 81 MG Bisacodyl (Dulcolax Tab) 10 mg UD PRN PO 04/30/17 03:30 05/30/17 03:29 Clopidogrel Bisulfate (plAVix TAB) 75 mg DAILY PO 04/30/17 09:00 05/30/17 08:59 05/02/17 08:03 75 MG Diltiazem HCl (Cardizem Cd Cap) 180 mg QAM PO 04/30/17 09:00 05/30/17 08:59 05/02/17 08:04 180 MG Docusate Sodium (coLACE CAP) 100 mg BID PO 04/30/17 09:00 05/30/17 08:59 05/02/17 08:03 100 MG Escitalopram Oxalate (Lexapro Tab) 20 mg DAILY PO 04/30/17 09:00 05/30/17 08:59 05/02/17 08:04 20 MG Fluticasone Propionate (Flonase Nasal [place]) 2 sprays DAILY PRN HENRY 04/30/17 03:30 05/30/17 03:29 Albuterol/ Ipratropium (Combivent Respimat Inh) 1 puffs QID PRN INH 04/30/17 03:30 05/30/17 03:29 05/02/17 06:44 1 PUFFS Isosorbide Mononitrate (Imdur Ext Rel Tab) 120 mg QAM PO 04/30/17 09:00 05/30/17 08:59 05/02/17 08:04 120 MG Levothyroxine Sodium (Synthroid Tab) 125 mcg DAILYBB PO 04/30/17 06:00 05/30/17 05:59 05/02/17 05:53 125 MCG Magnesium Hydroxide (Milk Of Magnesia Susp) 30 ml DAILY PRN PO 04/30/17 03:30 05/30/17 03:29 Nitroglycerin (Nitrostat Tab) 0.4 mg UD PRN UT 04/30/17 03:30 05/30/17 03:29 Ranitidine HCl (zANTac TAB) 150 mg BID PO 04/30/17 09:00 05/30/17 08:59 05/02/17 08:03 150 MG Senna (Senokot Tab) 8.6 mg BID PO 04/30/17 09:00 05/30/17 08:59 05/02/17 08:03 8.6 MG Calcium/Vitamin D (Caltrate Plus Tab) 1 tab BID PO 04/30/17 09:00 05/30/17 08:59 05/02/17 08:04 1 TAB Potassium Chloride (Klor-Con M10) 20 meq QAM PO 04/30/17 09:00 05/30/17 08:59 05/02/17 08:03 20 MEQ Furosemide (Lasix Tab) 10 mg BID17 PO 04/30/17 09:00 05/30/17 08:59 05/02/17 08:04 10 MG Oxycodone HCl (Oxycontin Tab) 40 mg Q12H PO 04/30/17 05:30 05/14/17 05:29 05/02/17 05:52 40 MG Ondansetron HCl (Zofran Inj) 4 mg Q6H PRN IV 04/30/17 08:15 05/30/17 08:14 Miscellaneous Information (Consult Glycemic Management Pharmacy) 1 ea UD PRN N/A 04/30/17 13:00 05/30/17 12:59 Heparin Sodium/ Dextrose 500 ml @ 23 mls/hr [id number] PRN IV 04/30/17 13:00 05/30/17 12:59 Alprazolam (Xanax Tab) 0.25 mg TID PO 04/30/17 16:15 05/30/17 16:14 05/02/17 08:14 0.25 MG Haloperidol (Haldol Tab) 0.5 mg Q6 PRN PO 04/30/17 16:15 05/30/17 16:14 Levofloxacin 500 mg/Prmx 100 ml @ 100 mls/hr Q24H IV 05/01/17 08:00 05/07/17 07:59 05/02/17 08:02 100 MLS/HR Ioversol (Optiray 320) 104 ml UD PRN IV 04/30/17 20:45 05/04/17 20:44 Insulin Human NPH (novoLIN-N NPH) 15 units BIDM SC 05/01/17 07:30 05/31/17 07:29 05/02/17 08:06 15 UNITS Levalbuterol (Xopenex 0.63 Mg/ 3 Ml Neb) 0.63 mg Q6RWA INH 05/01/17 20:00 05/31/17 19:59 05/02/17 07:05 0.63 MG
[2017-05-02] MEDS ORDERED: XPNINS INH (10:51)
[2017-05-02] MEDS ORDERED: LEVO1TAB34 PO (10:51)
[2017-05-02] MEDS ORDERED: OXYSR/40 PO (10:51)
--- NOTE | 2017-05-02 11:02 | Discharge Instructions ---
Discharge Instructions Date of Service May 02, 2017. Admission Reason for Admission: Ams, Elevated Troponin, Pneumonia Discharge Discharge Diagnosis / Problem: HYPOXIC RESPIRATORY FAILURE, PNEUMONIA Discharge Goals Goal(s): Diagnostic testing, Therapeutic intervention Activity Recommendations Activity Level: Ambulates in room . Additional Information Patient informed of condition: Yes Advance Directives: No (UNKNOWN) DNR: Yes Level of Care: Other (PERSONAL HALFWAY) Communicable Disease: No Prognosis: Improving Oxygen at (LPM): 2 LITERS VIA NASAL CANNULA AT ALL TIMES Saravia Catheter: No Instructions / Follow-Up Instructions / Follow-Up USE OXYGEN 2 LITERS VIA NASAL CANNULA AT ALL TIMES. MONITOR OXYGEN SATURATION LEVEL. PLEASE REFER TO ACCOMPANYING HOSPITAL DISCHARGE SUMMARY. FOLLOW UP WITH DR. LENNON (ASSOCIATE OF DR. BASSETT) ON Monday05/05/17 AT 10:05 AM. speech Therapy Recommendations * 1. Dental soft diet 2. Aspiration precautions, straws OK. Fully upright for meals and for 30 minutes after meals. 3. Alternate solids and liquids as needed. 4. Speech will monitor for tolerance. Current Hospital Diet Patient's current hospital diet: Diabetes Type 2 Diet, AHA Diet (Heart Healthy) Discharge Diet Recommended Diet: AHA Diet (Heart Healthy), Diabetes Type 2 Diet Procedures Procedures Performed: CT ANGIONGRAM, CHEST; CHEST XRAY; ECHO Pending Studies Studies pending at discharge: no Physician Orders On Transfer Special Precautions: USE OXYGEN 2 LITERS VIA NASAL CANNULA AT ALL TIMES. MONITOR OXYGEN SATURATION LEVEL. PLEASE REFER TO ACCOMPANYING HOSPITAL DISCHARGE SUMMARY. FOLLOW UP WITH DR. LENNON (ASSOCIATE OF DR. BASSETT) ON Monday05/05/17 AT 10:05 AM. speech Therapy Recommendations * 1. Dental soft diet 2. Aspiration precautions, straws OK. Fully upright for meals and for 30 minutes after meals. 3. Alternate solids and liquids as needed. 4. Speech will monitor for tolerance. POLST Discussion: with POLST completion Laboratory Results Hemoglobin A1c Test 05/01/17 05:14 Range/Units Estimated Average Glucose 192 mg/dl Hemoglobin A1c 8.3 H 4.5-5.6 % Medical Emergencies . Who to Call and When: Medical Emergencies: If at any time you feel your situation is an emergency, please call 911 immediately. . Non-Emergent Contact Non-Emergency issues call your: Primary Care Provider Call Non-Emergent contact if: you have a fever, you have any medication questions . . "Provider Documentation" section prepared by Demetri Hernadez. . Core Measure Problem Core Measures: None
--- NOTE | 2017-05-02 11:08 | Discharge Summary ---
Discharge Summary Date of Service May 02, 2017. Discharge Summary Admission Date: Apr 30, 2017 at 03:16 Discharge Date: May 02, 2017 Discharge Disposition: Personal care Principal Diagnosis: ACUTE HYPOXIC RESPIRATORY FAILURE SECONDARY TO PNEUMONIA, RIGHT MIDDLE LOBE Secondary Diagnoses/Problems: Please refer to hospital course below. Procedures: CHEST CTA for PULMONARY ARTERIES CT DOSE: 696.36 mGy.cm HISTORY: Abnormal chest x-ray. Increased PA pressure. Cough. Short of breath. TECHNIQUE: Multiaxial CT images of the chest were performed following the intravenous administration of contrast to evaluate the pulmonary arteries. Maximal intensity projection images were also obtained. A dose lowering technique was utilized adhering to the principles of ALARA. COMPARISON STUDY: Chest 04/30/2017. FINDINGS: Moderate calcified plaque within the normal caliber thoracic aorta. No evidence for aortic dissection. Poststernotomy changes. The heart is mildly enlarged. No pleural or pericardial effusions. Mild dilatation of the main pulmonary artery measuring 3.5 cm in diameter. This is consistent with pulmonary arterial hypertension. Motion artifact results in nondiagnostic evaluation of the right middle lobe and right lower lobe segmental and subsegmental pulmonary arteries as well as the majority of the right upper lobe segmental/subsegmental pulmonary arteries. There is also nondiagnostic evaluation of the lingular and left lower lobe segmental pulmonary arteries due to motion artifact. Remaining pulmonary arteries show no filling defects to suggest pulmonary embolus. The visualized liver and spleen are unremarkable. Bilateral adrenal gland nodular thickening. Mild mediastinal lymphadenopathy. Old left humeral neck deformity. No acute fractures within the visualized osseous structures. No pneumothorax. Bilateral lower lobe bronchial wall thickening. Bilateral lower lobe linear densities. Focal wedge-shaped consolidation within the right upper lobe posteriorly with surrounding small patchy densities. This favors a pneumonia. IMPRESSION: 1. Suboptimal evaluation of the distal pulmonary arteries as described above due to the motion artifact. However, no evidence for pulmonary embolus. 2. Focal consolidation within the right upper lobe posteriorly. This likely represents a pneumonia. Recommend one month chest x-ray follow-up to ensure resolution. 3. Mild pulmonary arterial hypertension. 4. Bilateral lateral lower lobe linear densities. This favors atelectasis but may also represent a pneumonia. 5. Additional findings as described above. Electronically signed by: Luis Manuel Napoles M.D. 04/30/2017 8:57 PM\\ HEAD CT NONCONTRAST CT DOSE: 691.05 mGy.cm HISTORY: Altered mental status. TECHNIQUE: Multiaxial CT images of the head were performed without the use of intravenous contrast. Automated exposure control was utilized for this study. A dose lowering technique was utilized adhering to the principles of ALARA. Comparison: Head CT 05/14/2016. Findings: The paranasal sinuses and mastoid air cells are clear. The calvarium and skull base are intact. There is no mass, hematoma, midline shift, acute infarct. White matter hypodensity is nonspecific but suggestive of microvascular ischemic change. The ventricles and sulci demonstrate mild age-related involutional changes. Impression: No significant change compared to the prior study. No acute intracranial abnormality. Electronically signed by: Luis Manuel Napoles M.D. ECHO Interpretation Summary * Name: BEVERLY PACHECO Study Date: 04/30/2017 07:19 AM BP: 151/70 mmHg * Patient Location: 2\\S\\S230\\S\\1 HR: 76 * : 1935 (M/d/yyyy) Gender: Female Height: 59 in * Age: 81 yrs Ethnicity: CA Weight: 201 lb * Ordering Physician: Frankie Ashley * Referring Physician: Melba Lemos * Performed By: Franchesca Ann RDCS * * Reason For Study: ELEVATED TROPONIN * BSA: 1.8 m2 * -- Conclusions -- * The left ventricle is normal in size. * There is normal left ventricular wall thickness. * No regional wall motion abnormalities noted. * Ejection Fraction = 55-60%. * Grade I diastolic dysfunction, (abnormal relaxation pattern). * Aortic valve sclerosis moderate, without significant aortic valvular stenosis. * There is mild tricuspid regurgitation. * Right ventricular systolic pressure is moderately elevated at 40-50mmHg. Consultations: Hvac Operations Technician Dr. Nunez, Psych Dr. Garland Pending Studies/Follow-Up: Please refer to hospital course below. Medication Reconciliation New Medications: Levofloxacin (Levaquin) 500 Mg Tab 1 TAB PO DAILY for 4 Days, #4 TAB 0 Refills Levalbuterol (Levalbuterol HCl) 0.63 Mg/3 Ml Nebu 0.63 MG INH TID for 7 Days may also use every 4 hours as needed for shortness of breath Oxycodone HCl (Oxycontin) 40 Mg Tabcr 40 MG PO Q12H for 7 Days Continued Medications: Alprazolam (Xanax) 0.25 Mg Tab 0.25 MG PO TID MORNING/2PM/BEDTIME Aspirin Enteric Coated (Ecotrin Or Generic) 81 Mg Tab 81 MG PO QAM Belladonna Alk/Phenobarbital () Tab 1 TAB PO TID PRN for Constipation Bisacodyl (Dulcolax) 5 Mg Tab 2 TAB PO UD PRN for NO BM FOR 2 DAYS TAKE 2 TABS ONCE DAILY UNTIL NORMAL BM Calcium Carbonate-Cholecalcife (Caltrate 600+D) 1 Tab Tab 1 TAB PO BID Clopidogrel Bisulfate (Plavix) 75 Mg Tab 75 MG PO DAILY Dextromethorphan-Guaifenesin (Mucinex Dm) 1 Tab Tab 1 TAB PO BID PRN for CONGESTION Diltiazem Hcl Coated Beads (Cardizem Cd) 180 Mg Cap 180 MG PO QAM Docusate Sodium (Colace) 100 Mg Cap 100 MG PO BID Escitalopram Oxalate (Lexapro) 20 Mg Tab 20 MG PO DAILY Fluocinonide (Lidex 0.05% Oint) 180 Appln/60 Gm Oint 1 APPLN TP BID PRN for SKIN IRRITATION Fluticasone Propionate (Nasal) (Flonase Allergy Relief) 50 Mcg/Act Spr 2 SPRAYS HENRY DAILY PRN for RHINITIS Furosemide (Lasix) 20 Mg Tab 10 MG PO BID Home O2 Therapy (Oxygen) Gas 2 LITER NA CONTINOUS Insulin Human Isophan/Regular (Novolin 70/30) Inj 20 SC QAM, BTL Insulin Isophan/Regular (Novolin 70/30) Susp 10 UNITS SC QPM Isosorbide Mononitrate (Imdur Ext Rel) 60 Mg Tab 120 MG PO QAM Levothyroxine Sodium (Synthroid) 125 Mcg Tab 125 MCG PO DAILY Magnesium Hydroxide (Milk Of Magnesia) 30 Ml Susp 30 ML PO DAILY PRN for Constipation, ML Metformin Hcl (Glucophage) 500 Mg Tab 1000 MG PO BID Nitroglycerin (Nitrostat) 0.4 Mg Tab 0.4 MG UT UD PRN for Chest Pain Nystatin (Topical) (Nystop) 100,000 Unit/Gm Pow 848136 UNITS TOP TID PRN for RASH APPLY TO ABDOMINAL FOLDS Polyethylene Glycol 3350 (Miralax) 1 Pow Pow 17 GM PO DAILY Potassium Chloride (Potassium Chloride Er) 10 Meq Tab 20 MEQ PO QAM, 1 Refill Ranitidine Hcl (Zantac) 150 Mg Tab 150 MG PO BID Senna (Senokot) 8.6 Mg Tab 1 TAB PO BID Discontinued Medications: Ipratropium-Albuterol (Combivent Respimat) 1 Aer Aer 1 PUFFS INH QID PRN for Wheezing Ipratropium-Albuterol (Duoneb) 3 Ml Nebu 1 TREATMENT INH Q4H PRN for Wheezing, INHA Oxycodone Hcl (Oxycontin) 40 Mg Tab 40 MG PO TID Oxycodone/Acetaminophen 10MG/325MG (Percocet 10MG/325MG) Tab 1 TAB PO TID TAKES AT 0600,1400,2200 Oxycodone/Acetaminophen 10MG/325MG (Percocet 10MG/325MG) Tab 1 TAB PO UD PRN for Pain FOR USE OVERNIGHT Venlafaxine Hcl (Venlafaxine Extended Rel) 37.5 Mg Cap 37.5 MG PO DAILY Admission Information HPI (per Admitting provider): This is a 81 year old F from the [facility] who as per the patient 's daughter has history of dementia but also has been having changes in mental status x 2 days - patient more forgetful, dropping things, becoming combative about refusing to go to the hospital to be evaluated for shortness of breath / cough. Patient also reported to have increased oxygen requirements - baseline wears oxygen at night but now needing more oxygen and had desaturation to the 70s. CT head negative Chest X ray concerning for pneumonia (Infiltrate in right middle lobe) and ED physician ordered Levaquin 750 mg IV Patient also has significant past cardiac history. In the ED patient had troponin of 0.629 with Right Bundle Branch Block but no chest pain and EKG was generally unchanged compared to previous EKGs. Patient was given aspirin 325 mg but no anticoagulation was started. The ED physician assessed that the troponin level elevated from illness When examined by hospitalist medicine physician at baseline, patient calm and breathing on nasal cannula. When asked about pain symptoms she denied chest pain. She reports that she does have pain below the umbilicus. The patient's daughter corroborated that this pain below the umbilicus has been there in the past and attributes this to irritable bowel syndrome Physical Exam (per Admitting): General Appearance: no apparent distress, + obese Head: normocephalic, atraumatic Eyes: normal inspection, EOMI, sclerae normal ENT: normal ENT inspection, hearing grossly normal, pharynx normal Neck: supple, no JVD, trachea midline Respiratory/Chest: no respiratory distress, no accessory muscle use, + decreased breath sounds Cardiovascular: regular rate, rhythm, no edema, normal peripheral pulses Abdomen/GI: normal bowel sounds, non tender, soft Extremities/Musculoskelatal: normal inspection, no calf tenderness, normal range of motion, non-tender Neurologic/Psych: no motor/sensory deficits, alert, normal mood/affect Skin: normal color, warm/dry, no rash Hospital Course 81 year old female with history of CAD, DM 2, HTN, Asthma, presenting with shortness of breath. ACUTE HYPOXIC RESPIRATORY FAILURE SECONDARY TO PNEUMONIA, RIGHT MIDDLE LOBE - CT chest: IMPRESSION: 1. Suboptimal evaluation of the distal pulmonary arteries as described above due to the motion artifact. However, no evidence for pulmonary embolus. 2. Focal consolidation within the right upper lobe posteriorly. This likely represents a pneumonia. Recommend one month chest x-ray follow-up to ensure resolution. 3. Mild pulmonary arterial hypertension. 4. Bilateral lateral lower lobe linear densities. This favors atelectasis but may also represent a pneumonia. 5. Additional findings as described above. - blood culture: negative - given: Levaquin IV x 3 days Nebs q6h - improved clinically, still requires 2 liters of O2 by NC at all times - discharge on: Levaquin 500mg po daily x 3 days Nebs TID and PRN q4hs Oxygen at 2 liters via nasal cannula at all times wean off oxygen accordingly - Speech Therapy recommendations: Recommendations * 1. Dental soft diet 2. Aspiration precautions, straws OK. Fully upright for meals and for 30 minutes after meals. 3. Alternate solids and liquids as needed. 4. Speech will monitor for tolerance. -- ff up with PCP in 1 week -- repeat CXR in one month to ff up resolution MILD TROPONIN ELEVATION - history of CAD, STENT - 0.6 to 0.3 to o.2 - EKG: no signs of acute ischemia - echo: -- Conclusions -- * The left ventricle is normal in size. * There is normal left ventricular wall thickness. * No regional wall motion abnormalities noted. * Ejection Fraction = 55-60%. * Grade I diastolic dysfunction, (abnormal relaxation pattern). * Aortic valve sclerosis moderate, without significant aortic valvular stenosis. * There is mild tricuspid regurgitation. * Right ventricular systolic pressure is moderately elevated at 40-50mmHg. -- Hvac Operations Technician Dr. Nunez troponin elevation likely from demand ischemia -- continue Aspirin, Plavix, Imdur, Diltiazem DM TYPE 2 -- on Metformin on Insulin 70/30 HTN -- continue Imdur, Dilzem, Lasix ACUTE EPISODE OF DELIRIUM CHART HISTORY OF DEMENTIA without BEHAVIORAL DISTURBANCE --occurred on hospital day 1 Psych consulted Xanax TID resumed Lexapro resumed Effexor discontinued -- mental status much improved, alert, oriented x 3, cooperative no recurrence CHRONIC PAIN - to avoid delirium, following changes were made: - Oxycodone long acting changed from TID to BID Percocet discontinued - patient denies pain so far monitor while on above decreased doses POLST FORM UPDATED - per discussion with patient and family, current POLST form not reflective of her wishes- currently states comfort measures only - another POLST form signed which states Limited Interventions DVT prophylaxis -- heparin given DNR Disposition d/c to [facility] up with PCP in 3-5 days Total time spent on discharge = 55 minutes This includes examination of the patient, discharge planning, medication reconciliation, and communication with other providers. Discharge Instructions Discharge Instructions Date of Service May 02, 2017. Admission Reason for Admission: Ams, Elevated Troponin, Pneumonia Discharge Discharge Diagnosis / Problem: HYPOXIC RESPIRATORY FAILURE, PNEUMONIA Discharge Goals Goal(s): Diagnostic testing, Therapeutic intervention Activity Recommendations Activity Level: Ambulates in room . Additional Information Patient informed of condition: Yes Advance Directives: No (UNKNOWN) DNR: Yes Level of Care: Other (PERSONAL HALF-WAY) Communicable Disease: No Prognosis: Improving Oxygen at (LPM): 2 LITERS VIA NASAL CANNULA AT ALL TIMES Saravia Catheter: No Instructions / Follow-Up Instructions / Follow-Up USE OXYGEN 2 LITERS VIA NASAL CANNULA AT ALL TIMES. MONITOR OXYGEN SATURATION LEVEL. PLEASE REFER TO ACCOMPANYING HOSPITAL DISCHARGE SUMMARY. FOLLOW UP WITH DR. LENNON (ASSOCIATE OF DR. BASSETT) ON Monday05/05/17 AT 10:05 AM. speech Therapy Recommendations * 1. Dental soft diet 2. Aspiration precautions, straws OK. Fully upright for meals and for 30 minutes after meals. 3. Alternate solids and liquids as needed. 4. Speech will monitor for tolerance. Current Hospital Diet Patient's current hospital diet: Diabetes Type 2 Diet, AHA Diet (Heart Healthy) Discharge Diet Recommended Diet: AHA Diet (Heart Healthy), Diabetes Type 2 Diet Procedures Procedures Performed: CT ANGIONGRAM, CHEST; CHEST XRAY; ECHO Pending Studies Studies pending at discharge: no Physician Orders On Transfer Special Precautions: USE OXYGEN 2 LITERS VIA NASAL CANNULA AT ALL TIMES. MONITOR OXYGEN SATURATION LEVEL. PLEASE REFER TO ACCOMPANYING HOSPITAL DISCHARGE SUMMARY. FOLLOW UP WITH DR. LENNON (ASSOCIATE OF DR. BASSETT) ON Monday05/05/17 AT 10:05 AM. speech Therapy Recommendations * 1. Dental soft diet 2. Aspiration precautions, straws OK. Fully upright for meals and for 30 minutes after meals. 3. Alternate solids and liquids as needed. 4. Speech will monitor for tolerance. POLST Discussion: with POLST completion Laboratory Results Hemoglobin A1c Test 05/01/17 05:14 Range/Units Estimated Average Glucose 192 mg/dl Hemoglobin A1c 8.3 H 4.5-5.6 % Medical Emergencies . Who to Call and When: Medical Emergencies: If at any time you feel your situation is an emergency, please call 911 immediately. . Non-Emergent Contact Non-Emergency issues call your: Primary Care Provider Call Non-Emergent contact if: you have a fever, you have any medication questions . . "Provider Documentation" section prepared by Demetri Hernadez. . Core Measure Problem Core Measures: None
--- NOTE | 2017-05-02 12:58 | Psychiatric Progress Notes ---
Psychiatric Progress Note Date of Service May 02, 2017. Notes 81 yo female resident from [facility] who has a history of dementia, depression, and anxiety, is admitted to the hospitalist service with AMS AND SOB with increase in O2 requirement, psychiatry initially consulted for a capacity assessment as she was refusing treatment and asking to leave AGAINST MEDICAL ADVICE. CC : "Why am I seeing a psychiatrist?" Interval History: Patient initially seen by Dr. Garland on 04/30/2017, as she was refusing chest CT and heparin anticoagulation, which were being recommended due to concerns for PE. Her reported home dose of alprazolam had been held on admission, although she reported having been on it for years. Her friend reported that she was confused compared to baseline and did not recognize her. She was unable to explain her reasons for refusing recommended treatment, and Dr. Garland felt she lacked capacity. Since that assessment, she has been pleasant and cooperative with treatment. Today she was seen with Keanu Napier , MS 3. Upon reading this physician's badge, she appeared concerned, and repeatedly asked why she was seeing a psychiatrist. She denies any concerns about her mood, and was focused on hopes that she would be discharged from the hospital today or tomorrow. She stated that she wanted to talk to her daughter , as she believed her daughter told her physician to keep her in the hospital for 1 more day, and she preferred to be discharged sooner if possible. She repeatedly asked if we were taking her to the psychiatric unit, as her nurse had just come in the room to inform her that she was being moved to a different room. Attempted to reassure her that I was just following up on the earlier psychiatric consult, that it appeared she was stable and doing well, and that we had no further recommendations. Diagnoses: 1. History of depression and anxiety: Appear well controlled, continue escitalopram 20 mg daily and alprazolam 0.25 mg 3 times a day. Her PCP prescribes her medications. Would recommend a slow taper off of the alprazolam as an outpatient, given the multiple risk factors with her dementia, advanced age, and episodes of altered mental status. Venlafaxine XR was discontinued here.
--- NOTE | 2017-05-02 14:35 | CARDIOLOGY PROGRESS NOTE ---
DATE: 05/02/2017 DATE: 05/02/2017 The patient seen and examined. Chart, medications, telemetry reviewed. SUBJECTIVE: The patient subjectively looks and feels better this morning. Had a little bit of a nonproductive cough, breathing is easier. Notes no chest pain or discomfort. Notes no dizziness or lightheadedness. OBJECTIVE: VITAL SIGNS: Heart rate is 83, blood pressure is 167/70. NECK: Thin. There is no jugular venous distention. LUNGS: Clear at the apices with a few scattered coarse rhonchi on cough at the right base. CARDIOVASCULAR: Regular. There is no S3 gallop. ABDOMEN: Soft, nontender. EXTREMITIES: Without cyanosis or clubbing. There is no peripheral edema. IMPRESSION: An 81-year-old female admitted with an acute right middle lobe pneumonia, now clinically improving on antibiotic therapies. Cardiac issues have resolved. Initial troponin elevation possible demand ischemia versus consistent with acute illness. No adjustments made in cardiac medications.
[2017-05-03 00:30] VITALS: BP 154/69; PULSE 69; TEMP 36.7; O2SAT 94
[2017-05-03] MEDS: OXYCODONE HCL 40 MG TABCR (OXYCONTIN) PO SCH (06:09)
[2017-05-03] MEDS: LEVOTHYROXINE 125 MCG TAB PO SCH (06:09)
[2017-05-03 08:01] VITALS: BP 178/68; PULSE 75; TEMP 37.2; O2SAT 90
[2017-05-03 08:22] LABS: PTT PATIENT 24.3 SECONDS (21.0-31.0)
[2017-05-03] MEDS: ASPIRIN 81 MG ECTAB PO SCH (08:45)
[2017-05-03] MEDS: POTASSIUM CHLORIDE 10 MEQ TABCR PO SCH (08:46)
[2017-05-03] MEDS: DOCUSATE SODIUM 100 MG CAP PO SCH (08:46)
[2017-05-03] MEDS: RANITIDINE HCL 150 MG TAB PO SCH (08:46)
[2017-05-03] MEDS: ESCITALOPRAM OXALATE 20 MG TAB PO SCH (08:47)
[2017-05-03] MEDS: SENNA 8.6 MG TAB PO SCH (08:47)
[2017-05-03] MEDS: ISOSORBIDE MONONITRATE 60 MG TABCR PO SCH (08:47)
[2017-05-03] MEDS: FUROSEMIDE 20 MG TAB PO SCH (08:48)
[2017-05-03] MEDS: CALCIUM 600MG + VIT D 400 IU TAB PO SCH (08:48)
[2017-05-03] MEDS: CLOPIDOGREL BISULFATE 75 MG TAB PO SCH (08:48)
[2017-05-03] MEDS: DILTIAZEM HCL 180 MG CAPCR PO SCH (08:49)
[2017-05-03] MEDS: ALPRAZOLAM 0.25 MG TAB PO SCH ×2 (08:55→13:38)
[2017-05-03] MEDS: INSULIN ASPART 100 UNITS/ML 3 ML PEN SC SCH ×2 (09:00→12:57)
[2017-05-03] MEDS: LEVALBUTEROL 0.63MG/3 ML NEB INH SCH ×2 (09:00→14:22)
[2017-05-03] MEDS: INSULIN HUMAN NPH SC SCH (09:01)
[2017-05-03] MEDS ORDERED: LEVOFLOXACIN 500 MG TAB PO SCH (11:00)
[2017-05-03 11:08] VITALS: BP 144/75; PULSE 72
--- NOTE | 2017-05-03 13:28 | Progress Note ---
Medicine Progress Note Date & Time of Visit: May 03, 2017 at 13:24. Subjective Pt was seen and examined Sitting at the edge of the bed with no distress Denies any chest pain, palpitation, dizziness and SOB Objective Last 8 Hrs Date Time Temp Pulse Resp B/P (MAP) Pulse Ox O2 Delivery O2 Flow Rate FiO2 05/03/17 11:08 72 144/75 (98) 05/03/17 08:45 Nasal Cannula 2.0 05/03/17 08:01 37.2 75 20 178/68 (104) 90 Nasal Cannula 2.0 Physical Exam: General- No acute distress Head- atraumatic Eyes- PERRL, EOMI ENT- oropharynx clear Neck- supple, no JVD Lungs- No wheezing Heart- regular rhythm Abdomen- normal bowel sounds, soft Extremities- no calf tenderness Neuro- alert, oriented, PERRL, EOMI Skin- warm & dry Laboratory Results: Last 24 Hours Test 05/02/17 17:23 05/02/17 20:15 05/03/17 07:49 05/03/17 07:50 Bedside Glucose 198 mg/dl 252 mg/dl 130 mg/dl Activated Partial Thromboplast Time 24.3 SECONDS Partial Thromboplastin Ratio 0.9 Test 05/03/17 11:42 Bedside Glucose 173 mg/dl Assessment & Plan ACUTE HYPOXIC RESPIRATORY FAILURE SECONDARY TO PNEUMONIA, RIGHT MIDDLE LOBE - CT chest: IMPRESSION: 1. Suboptimal evaluation of the distal pulmonary arteries as described above due to the motion artifact. However, no evidence for pulmonary embolus. 2. Focal consolidation within the right upper lobe posteriorly. This likely represents a pneumonia. Recommend one month chest x-ray follow-up to ensure resolution. 3. Mild pulmonary arterial hypertension. 4. Bilateral lateral lower lobe linear densities. This favors atelectasis but may also represent a pneumonia. 5. Additional findings as described above. - blood culture: negative - given: Levaquin IV x 3 days Nebs q6h - improved clinically, still requires 2 liters of O2 by NC at all times - discharge on: Levaquin 500mg po daily x 3 days Nebs TID and PRN q4hs Oxygen at 2 liters via nasal cannula at all times wean off oxygen accordingly - Speech Therapy recommendations: Recommendations * 1. Dental soft diet 2. Aspiration precautions, straws OK. Fully upright for meals and for 30 minutes after meals. 3. Alternate solids and liquids as needed. 4. Speech will monitor for tolerance. -- ff up with PCP in 1 week -- repeat CXR in one month to ff up resolution MILD TROPONIN ELEVATION - history of CAD, STENT - 0.6 to 0.3 to o.2 - EKG: no signs of acute ischemia - echo: -- Conclusions -- * The left ventricle is normal in size. * There is normal left ventricular wall thickness. * No regional wall motion abnormalities noted. * Ejection Fraction = 55-60%. * Grade I diastolic dysfunction, (abnormal relaxation pattern). * Aortic valve sclerosis moderate, without significant aortic valvular stenosis. * There is mild tricuspid regurgitation. * Right ventricular systolic pressure is moderately elevated at 40-50mmHg. -- Bankruptcy Paralegal Dr. Nunez troponin elevation likely from demand ischemia -- continue Aspirin, Plavix, Imdur, Diltiazem DM TYPE 2 -- on Metformin on Insulin 70/30 HTN -- continue Imdur, Dilzem, Lasix ACUTE EPISODE OF DELIRIUM CHART HISTORY OF DEMENTIA without BEHAVIORAL DISTURBANCE --occurred on hospital day 1 Psych consulted Xanax TID resumed Lexapro resumed Effexor discontinued -- mental status much improved, alert, oriented x 3, cooperative no recurrence CHRONIC PAIN - to avoid delirium, following changes were made: - Oxycodone long acting changed from TID to BID Percocet discontinued - patient denies pain so far monitor while on above decreased doses POLST FORM UPDATED - per discussion with patient and family, current POLST form not reflective of her wishes- currently states comfort measures only - another POLST form signed which states Limited Interventions DVT prophylaxis -- heparin given DNR Disposition d/c to [facility] ff up with PCP in 3-5 days Consultants: Bankruptcy Paralegal Dr. Nunez, Psych Dr. Garland Procedures: CHEST CTA for PULMONARY ARTERIES CT DOSE: 696.36 mGy.cm HISTORY: Abnormal chest x-ray. Increased PA pressure. Cough. Short of breath. TECHNIQUE: Multiaxial CT images of the chest were performed following the intravenous administration of contrast to evaluate the pulmonary arteries. Maximal intensity projection images were also obtained. A dose lowering technique was utilized adhering to the principles of ALARA. COMPARISON STUDY: Chest 04/30/2017. FINDINGS: Moderate calcified plaque within the normal caliber thoracic aorta. No evidence for aortic dissection. Poststernotomy changes. The heart is mildly enlarged. No pleural or pericardial effusions. Mild dilatation of the main pulmonary artery measuring 3.5 cm in diameter. This is consistent with pulmonary arterial hypertension. Motion artifact results in nondiagnostic evaluation of the right middle lobe and right lower lobe segmental and subsegmental pulmonary arteries as well as the majority of the right upper lobe segmental/subsegmental pulmonary arteries. There is also nondiagnostic evaluation of the lingular and left lower lobe segmental pulmonary arteries due to motion artifact. Remaining pulmonary arteries show no filling defects to suggest pulmonary embolus. The visualized liver and spleen are unremarkable. Bilateral adrenal gland nodular thickening. Mild mediastinal lymphadenopathy. Old left humeral neck deformity. No acute fractures within the visualized osseous structures. No pneumothorax. Bilateral lower lobe bronchial wall thickening. Bilateral lower lobe linear densities. Focal wedge-shaped consolidation within the right upper lobe posteriorly with surrounding small patchy densities. This favors a pneumonia. IMPRESSION: 1. Suboptimal evaluation of the distal pulmonary arteries as described above due to the motion artifact. However, no evidence for pulmonary embolus. 2. Focal consolidation within the right upper lobe posteriorly. This likely represents a pneumonia. Recommend one month chest x-ray follow-up to ensure resolution. 3. Mild pulmonary arterial hypertension. 4. Bilateral lateral lower lobe linear densities. This favors atelectasis but may also represent a pneumonia. 5. Additional findings as described above. Electronically signed by: Luis Manuel Napoles M.D. 04/30/2017 8:57 PM\ HEAD CT NONCONTRAST CT DOSE: 691.05 mGy.cm HISTORY: Altered mental status. TECHNIQUE: Multiaxial CT images of the head were performed without the use of intravenous contrast. Automated exposure control was utilized for this study. A dose lowering technique was utilized adhering to the principles of ALARA. Comparison: Head CT 05/14/2016. Findings: The paranasal sinuses and mastoid air cells are clear. The calvarium and skull base are intact. There is no mass, hematoma, midline shift, acute infarct. White matter hypodensity is nonspecific but suggestive of microvascular ischemic change. The ventricles and sulci demonstrate mild age-related involutional changes. Impression: No significant change compared to the prior study. No acute intracranial abnormality. Electronically signed by: Luis Manuel Napoles M.D. ECHO Interpretation Summary * Name: BEVERLY PACHECO Study Date: 04/30/2017 07:19 AM BP: 151/70 mmHg * Patient Location: .2T\S\S230\S\1 HR: 76 * : 1935 (M/d/yyyy) Gender: Female Height: 59 in * Age: 81 yrs Ethnicity: [place] Weight: 201 lb * Ordering Physician: Frankie Ashley * Referring Physician: Melba Lemos * Performed By: Franchesca Ann RDCS * * Reason For Study: ELEVATED TROPONIN * BSA: 1.8 m2 * -- Conclusions -- * The left ventricle is normal in size. * There is normal left ventricular wall thickness. * No regional wall motion abnormalities noted. * Ejection Fraction = 55-60%. * Grade I diastolic dysfunction, (abnormal relaxation pattern). * Aortic valve sclerosis moderate, without significant aortic valvular stenosis. * There is mild tricuspid regurgitation. * Right ventricular systolic pressure is moderately elevated at 40-50mmHg. Current Inpatient Medications: Current Inpatient Medications Medications (Trade) Dose Ordered Sig/Emanuel Route Start Time Stop Time Status Last Admin Dose Admin Insulin Aspart (novoLOG ASPART) SLIDING SCALE If C... ACHS SC 04/30/17 07:00 05/30/17 06:59 05/03/17 12:57 6 UNITS Glucose (Glucose Chew Tab) 4-8 Tablets 4 Tabl... UD PRN PO 04/30/17 03:30 05/30/17 03:29 Dextrose (Dextrose 50% 50ML Syringe) 25-50ML OF 50% DW IV FOR... UD PRN IV 04/30/17 03:30 05/30/17 03:29 Glucagon (Glucagon Inj) 1 mg UD PRN SQ 04/30/17 03:30 05/30/17 03:29 Aspirin (Ecotrin Tab) 81 mg QAM PO 04/30/17 09:00 05/30/17 08:59 05/03/17 08:45 81 MG Bisacodyl (Dulcolax Tab) 10 mg UD PRN PO 04/30/17 03:30 05/30/17 03:29 Clopidogrel Bisulfate (plAVix TAB) 75 mg DAILY PO 04/30/17 09:00 05/30/17 08:59 05/03/17 08:48 75 MG Diltiazem HCl (Cardizem Cd Cap) 180 mg QAM PO 04/30/17 09:00 05/30/17 08:59 05/03/17 08:49 180 MG Docusate Sodium (coLACE CAP) 100 mg BID PO 04/30/17 09:00 05/30/17 08:59 05/03/17 08:46 100 MG Escitalopram Oxalate (Lexapro Tab) 20 mg DAILY PO 04/30/17 09:00 05/30/17 08:59 05/03/17 08:47 20 MG Fluticasone Propionate (Flonase Nasal [place]ba) 2 sprays DAILY PRN HENRY 04/30/17 03:30 05/30/17 03:29 Albuterol/ Ipratropium (Combivent Respimat Inh) 1 puffs QID PRN INH 04/30/17 03:30 05/30/17 03:29 05/02/17 06:44 1 PUFFS Isosorbide Mononitrate (Imdur Ext Rel Tab) 120 mg QAM PO 04/30/17 09:00 05/30/17 08:59 05/03/17 08:47 120 MG Levothyroxine Sodium (Synthroid Tab) 125 mcg DAILYBB PO 04/30/17 06:00 05/30/17 05:59 05/03/17 06:09 125 MCG Magnesium Hydroxide (Milk Of Magnesia Susp) 30 ml DAILY PRN PO 04/30/17 03:30 05/30/17 03:29 Nitroglycerin (Nitrostat Tab) 0.4 mg UD PRN UT 04/30/17 03:30 05/30/17 03:29 Ranitidine HCl (zANTac TAB) 150 mg BID PO 04/30/17 09:00 05/30/17 08:59 05/03/17 08:46 150 MG Senna (Senokot Tab) 8.6 mg BID PO 04/30/17 09:00 05/30/17 08:59 05/03/17 08:47 8.6 MG Calcium/Vitamin D (Caltrate Plus Tab) 1 tab BID PO 04/30/17 09:00 05/30/17 08:59 05/03/17 08:48 1 TAB Potassium Chloride (Klor-Con M10) 20 meq QAM PO 04/30/17 09:00 05/30/17 08:59 05/03/17 08:46 20 MEQ Furosemide (Lasix Tab) 10 mg BID17 PO 04/30/17 09:00 05/30/17 08:59 05/03/17 08:48 10 MG Ondansetron HCl (Zofran Inj) 4 mg Q6H PRN IV 04/30/17 08:15 05/30/17 08:14 Miscellaneous Information (Consult Glycemic Management Pharmacy) 1 ea UD PRN N/A 04/30/17 13:00 05/30/17 12:59 Heparin Sodium/ Dextrose 500 ml @ 23 mls/hr [id number] PRN IV 04/30/17 13:00 05/30/17 12:59 Alprazolam (Xanax Tab) 0.25 mg TID PO 04/30/17 16:15 05/30/17 16:14 05/03/17 08:55 0.25 MG Haloperidol (Haldol Tab) 0.5 mg Q6 PRN PO 04/30/17 16:15 05/30/17 16:14 Ioversol (Optiray 320) 104 ml UD PRN IV 04/30/17 20:45 05/04/17 20:44 Insulin Human NPH (novoLIN-N NPH) 15 units BIDM SC 05/01/17 07:30 05/31/17 07:29 05/03/17 09:01 15 UNITS Levalbuterol (Xopenex 0.63 Mg/ 3 Ml Neb) 0.63 mg Q6RWA INH 05/01/17 20:00 05/31/17 19:59 05/02/17 14:51 0.63 MG Levofloxacin (Levaquin Tab) 500 mg DAILY@11 PO 05/03/17 11:00 05/10/17 10:59 05/03/17 08:48 500 MG Oxycodone HCl (Oxycontin Tab) 40 mg Q12H PO 05/03/17 18:00 05/17/17 17:59
[2017-05-03 13:45] VITALS: BP 144/75; PULSE 72; TEMP 37.2; O2SAT 90
[2017-05-03 14:22] VITALS: PULSE 84; O2SAT 95
[2017-05-03] MEDS ORDERED: OXYCODONE HCL 20 MG TABCR (OXYCONTIN) PO SCH (18:00)
--- NOTE | 2017-05-05 14:04 | EDITING REQUIRED CODING QUERY ---
CODING QUERY To promote full compliance with coding requirements relating to patient care, provider participation is requested in all cases of diamond sizer and grader uncertainty. Please assist us with the question(s) below: Coding Question(s): Patient is an 81 year old female admitted with an altered mental status in the setting of pneumonia and associated hypoxia. Treatment of the underlying infection and hypoxia has resulted in improvement in mental status. H&P included documentation of encephalopathy. In your clinical opinion is this patient being managed for: ( ) Encephalopathy, resolved ( ) Not Agree ( X ) Other explanation of clinical findings (Please Explain) Possible Encephalopathy, Resolved ( ) Unable to determine (Please Define) Physician's Response(s): Thank you Meghna Rojas Principal Diagnosis: "_that condition established after study, to be chiefly responsible for occasioning the admission of the patient to the hospital for care." Co-Existing Principal Diagnosis: "_when two or more diagnoses equally meet the criteria for principal diagnosis as determined by the circumstances of admission, diagnostic work up, and/or therapy provided, and the Alphabetic Index, Tabular List, or another coding guideline does not provide sequencing direction, any one of the diagnoses may be sequenced first." "When the physician has documented what appears to be a current diagnosis in the body of the record, but has not included the diagnosis in the final diagnostic statement, the physician should be asked whether the diagnosis should be added." (Source [facility]oding [facility] 2 QTR90. p3-4)
== END 2017-05-03 18:56 | disposition home or self-care (01) | DRG 195 ==
LOC: EDBD 23:44 → C.EDA 23:45 → C.2T 04-30 03:16 → ENRESERV 04-30 03:26 → C.MS4W 05-02 13:12
PROVIDERS: ADMIT Hospitalist; ATTEND Internal Medicine
DX: J18.9 Pneumonia, unspecified organism (principal); J45.909 Unspecified asthma, uncomplicated; I25.10 Atherosclerotic heart disease of native coronary artery without angina pectoris; E11.9 Type 2 diabetes mellitus without complications; I10 Essential (primary) hypertension; E03.9 Hypothyroidism, unspecified; Z66 Do not resuscitate; E83.42 Hypomagnesemia; M81.0 Age-related osteoporosis without current pathological fracture; Z90.710 Acquired absence of both cervix and uterus; Z79.82 Long term (current) use of aspirin; Z99.81 Dependence on supplemental oxygen; Z79.4 Long term (current) use of insulin; Z82.49 Family history of ischemic heart disease and other diseases of the circulatory system